=== PATIENT | male | born 1945 | race Caucasian/White ===

== ENCOUNTER 2017-05-25 16:56 | Inpatient (IN) | payer MEDICARE ==
[~2017-05-25] VITALS: Ht 185.4 cm; Wt 109.8 kg
[2017-05-25 17:56] LABS: BASO # 0.1 x10^3/uL (0.0-0.2); BASO % 1 % (0-3); EOS % 1 % (0-3); HEMATOCRIT 32.5 % (39.0-53.0); LYMPH # 0.7 x10^3/uL (1.0-4.8); LYMPH % 4 % (24-48); MEAN CORPUSCULAR HEMOGLOBIN 27 pg (25-35); MEAN CORPUSCULAR HGB CONC 31 g/dL (31-37); MEAN CORPUSCULAR VOLUME 87 fL (79-100); MONO % 5 % (0-9); NEUT % 91 % (31-73); PLATELET COUNT 233 x10^3/uL (140-400); RED BLOOD COUNT 3.73 x10^6/uL (4.30-5.70); RED CELL DISTRIBUTION WIDTH 19.1 % (11.5-14.5); WHITE BLOOD COUNT 20.8 x10^3/uL (4.0-11.0)
[2017-05-25 18:20] LABS: INR 3.7 (0.8-1.1); PROTHROMBIN TIME PATIENT 34.3 SEC (11.7-14.0)
--- NOTE | 2017-05-25 18:20 | RAD ---
Exam performed: CT scan of the head without contrast. Date of Service: 05/25/2017. Comparison: 05/23/2009. Clinical History: Weakness and fatigue. Technique: Helical acquisitions are obtained from the foramen magnum to the vertex without intravenous administration of contrast. Findings: There is prominence of cortical sulci and ventricular system compatible with age related atrophy. There are areas of low-attenuation in both periventricular deep white matter suggesting small vessel ischemic changes. Normal diego-white differentiation is maintained. There is no extra axial fluid collection, intraparenchymal hemorrhage or mass lesion. The visualized portions of the orbits, paranasal sinuses and the mastoid air cells appear clear. The calvarium is intact. Impression: 1. Age-appropriate atrophy without any acute intracranial process. PQRS Compliance Statement: One or more of the following individualized dose reduction techniques were utilized for this examination: 1. Automated exposure control 2. Adjustment of the mA and/or kV according to patient size 3. Use of iterative reconstruction technique Electronically signed by: Oriana Garrett MD (05/25/2017 6:17 PM) [facility]
[2017-05-25] MEDS ORDERED: IOHEXOL 300 MG/ML 75 ML VIAL IV ONE (18:45)
[2017-05-25] MEDS ORDERED: CONTRAST GIVEN MC PRN (19:00)
[2017-05-25 19:31] LABS: CALCIUM 8.4 mg/dL (8.5-10.1); CREATININE 2.2 mg/dL (0.7-1.3); GFR 29.7; POTASSIUM 3.3 mmol/L (3.5-5.1)
[2017-05-25 19:37] LABS: ALBUMIN 2.8 g/dL (3.4-5.0); ALBUMIN/GLOBULIN RATIO 0.8 (1.0-1.7); TOTAL BILIRUBIN 0.3 mg/dL (0.2-1.0); TOTAL PROTEIN 6.4 g/dL (6.4-8.2)
[2017-05-25 20:21] LABS: % EOS 2 % (0-5); ANISOCYTOSIS SLIGHT; HYPOCHROMIA SLIGHT; PLT ESTIMATE ADEQUATE (ADEQUATE)
[2017-05-25 20:33] LABS: BILIRUBIN,URINE NEGATIVE (NEG); GLUCOSE,URINE NEGATIVE (NEG); NITRITE,URINE NEGATIVE (NEG); PH,URINE 5.5; PROTEIN,URINE 100 mg/dL (NEG-TRACE); UROBILINOGEN,URINE 0.2 mg/dL (0.2 mg/dL)
[2017-05-25 20:46] LABS: BACTERIA,URINE FEW /HPF (0-FEW); SQUAMOUS EPITHELIAL CELL,UR FEW /LPF
[2017-05-25] MEDS ORDERED: ONDANSETRON PF 4 MG/2 ML VIAL. IV PRN (21:45)
[2017-05-25] MEDS ORDERED: ACETAMINOPHEN 325 MG TABLET. PO PRN (21:45)
[2017-05-25] MEDS: AZITHRMYCN 500MG IVPB FOR OMNI 250 ML IV ONE (22:00)
[2017-05-25 23:30] VITALS: BP 81/48
--- NOTE | 2017-05-25 23:45 | PHYS DOC ---
Past Medical History Past Medical History: A-Fib, Hypertension Past Surgical History: Other Additional Past Surgical Histo: CARDIAC ABLATION, R BKA, EXPLORATORY SX-AB Alcohol Use: Occasionally Drug Use: None Adult General Chief Complaint Chief Complaint: FATIGUE HPI HPI Patient is a 71 year old male who presents with dyspnea & weakness. The patient reports sudden onset of symptoms about 2 hours prior to presentation, had difficulty catching his breath and had difficulty standing up from seated position. He denies associated fevers or chills, cough, chest pain, unilateral numbness or weakness. He feels better now while he is resting in bed. He has previous history of abscess to left calf requiring surgical I&D with skin graft. He states he has been following closely at and has no new concerns regarding his lower extremity. He has history of hypertension and atrial fibrillation as well as a right BKA. He takes Coumadin. Review of Systems Review of Systems Constitutional: Denies fever or chills Eyes: Denies change in visual acuity HENT: Denies nasal congestion or sore throat Respiratory: Denies cough, reports shortness of breath Cardiovascular: Denies chest pain or edema GI: Denies abdominal pain, nausea, vomiting, bloody stools or diarrhea : Denies dysuria or hematuria Musculoskeletal: Denies back pain or joint pain, reports generalized weakness Integument: Denies rash or skin lesions Neurologic: Denies headache, focal weakness or sensory changes Current Medications Current Medications Current Medications Medications (Trade) Dose Ordered Sig/Tuan Start Time Stop Time Status Last Admin Dose Admin Info (Do NOT chart on this entry -- for MONITORING) 1 each PRN DAILY PRN 05/25/17 19:00 05/27/17 18:59 Iohexol (Omnipaque 300 Mg/ml) 75 ml 1X ONCE 05/25/17 18:45 05/25/17 18:48 DC Allergies Allergies Allergies Coded Allergies Type Severity Reaction Last Updated Verified Penicillins Allergy Intermediate 05/25/17 Yes codeine Allergy Intermediate 05/25/17 Yes Physical Exam Physical Exam Constitutional: Obese, no acute distress, non-toxic appearance. HENT: Normocephalic, atraumatic, bilateral external ears normal, oropharynx moist, nose normal. Eyes: PERRLA, EOMI, conjunctiva normal, no discharge. Neck: supple, no stridor. Cardiovascular: RRR, no murmurs, no edema. Lungs & Thorax: Diminished in bases, LCTAB, no wheezing, no respiratory distress. Abdomen: soft, nontender, nondistended. Skin: Warm, dry, no erythema, no rash. Back: No tenderness. Extremities: Right BKA left calf skin graft, small amount of serosanguineous drainage but no purulent drainage, no overlying erythema/warmth, no calf tenderness, distal pulses palpable Neurologic: Alert and oriented X 3, cranial nerves II through XII grossly intact , symmetric strength and sensation upper extremities, intact strength and sensation to left lower extremity, right BKA, no focal deficits noted. Psychologic: Affect normal, judgement normal, mood normal. Current Patient Data Vital Signs Vital Signs Date Time Temp Pulse Resp B/P (MAP) Pulse Ox O2 Delivery O2 Flow Rate FiO2 05/25/17 20:15 72 14 157/66 (96) 99 05/25/17 17:43 Room Air 05/25/17 17:06 97.6 97.6 Lab Values Laboratory Tests Test 05/25/17 17:35 05/25/17 18:45 05/25/17 20:28 White Blood Count 20.8 x10^3/uL (4.0-11.0) H Red Blood Count 3.73 x10^6/uL (4.30-5.70) L Hemoglobin 10.0 g/dL (13.0-17.5) L Hematocrit 32.5 % (39.0-53.0) L Mean Corpuscular Volume 87 fL (79-100) Mean Corpuscular Hemoglobin 27 pg (25-35) Mean Corpuscular Hemoglobin Concent 31 g/dL (31-37) Red Cell Distribution Width 19.1 % (11.5-14.5) H Platelet Count 233 x10^3/uL (140-400) Neutrophils (%) (Auto) 91 % (31-73) H Lymphocytes (%) (Auto) 4 % (24-48) L Monocytes (%) (Auto) 5 % (0-9) Eosinophils (%) (Auto) 1 % (0-3) Basophils (%) (Auto) 1 % (0-3) Neutrophils # (Auto) 18.8 x10^3uL (1.8-7.7) H Lymphocytes # (Auto) 0.7 x10^3/uL (1.0-4.8) L Monocytes # (Auto) 1.0 x10^3/uL (0.0-1.1) Eosinophils # (Auto) 0.2 x10^3/uL (0.0-0.7) Basophils # (Auto) 0.1 x10^3/uL (0.0-0.2) Segmented Neutrophils % 90 % (35-66) H Band Neutrophils % 1 % (0-9) Lymphocytes % 4 % (24-48) L Monocytes % 3 % (0-10) Eosinophils % 2 % (0-5) Platelet Estimate Adequate (ADEQUATE) Hypochromasia Slight Anisocytosis Slight Prothrombin Time 34.3 SEC (11.7-14.0) H Prothrombin Time INR 3.7 (0.8-1.1) H PTT 47 SEC (24-38) H D-Dimer (Jessie) 0.72 ug/mlFEU (0.00-0.50) H Sodium Level 141 mmol/L (136-145) Potassium Level 3.3 mmol/L (3.5-5.1) L Chloride Level 108 mmol/L (98-107) H Carbon Dioxide Level 21 mmol/L (21-32) Anion Gap 12 (6-14) Blood Urea Nitrogen 40 mg/dL (8-26) H Creatinine 2.2 mg/dL (0.7-1.3) H Estimated GFR (Cockcroft-Gault) 29.7 BUN/Creatinine Ratio 18 (6-20) Glucose Level 106 mg/dL (70-99) H Calcium Level 8.4 mg/dL (8.5-10.1) L Total Bilirubin 0.3 mg/dL (0.2-1.0) Aspartate Amino Transferase (AST) 13 U/L (15-37) L Alanine Aminotransferase (ALT) 27 U/L (16-63) Alkaline Phosphatase 93 U/L (46-116) Troponin I Quantitative 0.026 ng/mL (0.000-0.055) SK-Fdq-S-Type Natriuretic Peptide 900 pg/mL (0-124) H Total Protein 6.4 g/dL (6.4-8.2) Albumin 2.8 g/dL (3.4-5.0) L Albumin/Globulin Ratio 0.8 (1.0-1.7) L Urine Collection Type Unknown Urine Color Yellow Urine Clarity Clear Urine pH 5.5 Urine Specific [place] 1.025 Urine Protein 100 mg/dL (NEG-TRACE) Urine Glucose (UA) Negative mg/dL (NEG) Urine Ketones (Stick) Negative mg/dL (NEG) Urine Blood Negative (NEG) Urine Nitrite Negative (NEG) Urine Bilirubin Negative (NEG) Urine Urobilinogen Dipstick 0.2 mg/dL (0.2 mg/dL) Urine Leukocyte Esterase Negative (NEG) Urine RBC 3-5 /HPF (0-2) Urine WBC 1-4 /HPF (0-4) Urine Squamous Epithelial Cells Few /LPF Urine Bacteria Few /HPF (0-FEW) Urine Cellular Casts Occ /HPF Urine Hyaline Casts Many /HPF Urine Red Blood Cell Casts Occasional /HPF Urine Mucus Slight /LPF Laboratory Tests 05/25/17 17:35 Laboratory Tests 05/25/17 18:45 EKG EKG Interpreted by me: Normal sinus rhythm rate 59, no acute ST or T wave changes, normal intervals, no ectopy, significant artifact noted[] Radiology/Procedures Radiology/Procedures VQ pending at time of admission. PROCEDURE: CT HEAD WO CONTRAST Exam performed: CT scan of the head without contrast. Date of Service: 05/25/2017. Comparison: 05/23/2009. Clinical History: Weakness and fatigue. Technique: Helical acquisitions are obtained from the foramen magnum to the vertex without intravenous administration of contrast. Findings: There is prominence of cortical sulci and ventricular system compatible with age related atrophy. There are areas of low-attenuation in both periventricular deep white matter suggesting small vessel ischemic changes. Normal diego-white differentiation is maintained. There is no extra axial fluid collection, intraparenchymal hemorrhage or mass lesion. The visualized portions of the orbits, paranasal sinuses and the mastoid air cells appear clear. The calvarium is intact. Impression: 1. Age-appropriate atrophy without any acute intracranial process. PQRS Compliance Statement: One or more of the following individualized dose reduction techniques were utilized for this examination: 1. Automated exposure control 2. Adjustment of the mA and/or kV according to patient size 3. Use of iterative reconstruction technique Electronically signed by: Oriana Garrett MD (05/25/2017 6:17 PM) [facility] DICTATED and SIGNED BY: ORIANA GARRETT MD DATE: 05/25/17 5160 CXR, portable: interpreted by me: cardiomegaly, no infiltrate, no pneumothorax , mediastinal silhouette appears stable from previous, no acute process.[] Course & Med Decision Making Course & Med Decision Making Pertinent Labs and Imaging studies reviewed. (See chart for details) Patient presents with dyspnea and generalized weakness. Vitals stable, normal pulmonary exam, asymptomatic at time of my evaluation. Obtained CT of head and chest x-ray as well as labs and EKG. Noted to have leukocytosis without obvious infiltrate on chest x-ray. He had recent surgery with elevated d-dimer. Planned to order CT angiogram of the chest to evaluate for PE but GFR was too low to give IV contrast. Ordered VQ scan which is pending at time of admission. He was resting comfortably but I did recommend admission to the hospital for further evaluation and treatment including completion of VQ scan and pulmonary consultation. Patient agrees with plan of care. Discussed with Dr. Charles who agrees to admit to inpatient status. Will empirically treat for pneumonia even though no obvious abnormality on chest x-ray this time. Pulmonary consult to Dr. Mabry. Patient is admitted in stable condition. [] Dragon Disclaimer Dragon Disclaimer This electronic medical record was generated, in whole or in part, using a voice recognition dictation system. Departure Departure Impression: Primary Impression: Dyspnea Additional Impressions: Leukocytosis Anemia Acute renal failure Disposition: ADMITTED INPATIENT Admitting Physician: Jasvir Charles Condition: GUARDED Problem Qualifiers SANDHYA HENAO MD May 25, 2017 23:45
[2017-05-26] MEDS ORDERED: coumadin (00:28)
[2017-05-26] MEDS ORDERED: ALLO300T PO (00:28)
--- NOTE | 2017-05-26 01:18 | RAD ---
Nuclear medicine ventilation/perfusion scan: Reason for examination: Dyspnea. Elevated d-dimer. Rule out pulmonary embolus. Ventilation scan was performed using 13 mCi of xenon-133 gas. Perfusion scan was performed using 6 mCi of technetium 99m MAA. Standard images were obtained.. Ventilation scan shows homogeneous activity on single breath and equilibrium phase images and there appears be good washout. The activity however throughout the right lung field appears to be greater than the left lung field throughout the scan. The perfusion scan also shows increased activity throughout the right lung field compared to the left but no perfusion defects are identified and there is no evidence of ventilation/perfusion mismatch. IMPRESSION: No ventilation/perfusion mismatch. No evidence of pulmonary embolus. Electronically signed by: Samantha Herrera MD (05/26/2017 1:14 AM) [id number]
[2017-05-26] MEDS: AZITHRMYCN 500MG IVPB FOR OMNI 250 ML IV ONE (01:29)
[2017-05-26 03:05] VITALS: BP 87/42
[2017-05-26 06:07] LABS: BASO # 0.1 x10^3/uL (0.0-0.2); BASO % 0 % (0-3); EOS % 0 % (0-3); LYMPH # 0.8 x10^3/uL (1.0-4.8); LYMPH % 3 % (24-48); MEAN CORPUSCULAR HEMOGLOBIN 27 pg (25-35); MEAN CORPUSCULAR HGB CONC 32 g/dL (31-37); MEAN CORPUSCULAR VOLUME 85 fL (79-100); MONO % 4 % (0-9); NEUT % 93 % (31-73); PLATELET COUNT 207 x10^3/uL (140-400); RED CELL DISTRIBUTION WIDTH 18.8 % (11.5-14.5)
[2017-05-26 06:26] LABS: CALCIUM 7.7 mg/dL (8.5-10.1); CREATININE 1.8 mg/dL (0.7-1.3); GFR 37.5; POTASSIUM 3.5 mmol/L (3.5-5.1)
--- NOTE | 2017-05-26 06:55 | EKG ---
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
[2017-05-26 07:00] VITALS: BP 140/57
[2017-05-26] MEDS: IPRATRPIUM/ALBUTEROL 0.5/2.5MG 3 ML NEBU. NEB SCH ×4 (07:42→19:48)
--- NOTE | 2017-05-26 09:05 | RAD ---
CHEST AP ONLY Clinical Indication: Shortness of air Comparison: Chest radiograph dated 11/14/2012 Findings: Partial exclusion of the right costophrenic angle. Normal lung volume. No focal consolidation. Normal pulmonary vasculature. No pleural effusion or pneumothorax. Stable mild cardiomegaly. Stable atherosclerotic thoracic aorta. No acute osseous abnormality. IMPRESSION: 1. No focal consolidation. 2. Stable mild cardiomegaly.
[2017-05-26] MEDS: MORPHINE SULFATE 4 MG/ML DISP.SYRIN. IV PRN ×2 (09:48→13:18)
--- NOTE | 2017-05-26 10:58 | HP ---
ADMIT DATE: 05/25/2017 CHIEF COMPLAINT: Fatigue. HISTORY OF PRESENT ILLNESS: The patient is a pleasant 71-year-old male who presented with fatigue. He is short of breath. He is weak. It has been occurring for a couple of hours. He has had difficulty walking with his prosthetic leg as well. He does have a right BKA. He has also got some wounds on his left lower extremity that had been grafted. Apparently that occurred at a month or so ago. I have discussed the case with ER physician. We are going to admit the patient with leukocytosis, anemia, acute renal failure and weakness. PAST MEDICAL HISTORY: Right BKA, left lower extremity skin grafting (from the thigh to the lower calf), AFib, hypertension, obesity. ALLERGIES: PENICILLIN, CODEINE. FAMILY HISTORY: Diabetes. SOCIAL HISTORY: Does not drink, smoke or take drugs. MEDICATIONS: Reviewed. REVIEW OF SYSTEMS: REVIEW OF SYSTEMS: GENERAL: He complains of weakness and shortness of breath. SKIN: No bruising, hair changes or rashes. EYES: No blurred, double or loss of vision. NOSE AND THROAT: No history of nosebleeds, hoarseness or sore throat. HEART: No history of palpitations, chest pain or shortness of breath on exertion. LUNGS: Denies cough, hemoptysis, wheezing or shortness of breath. GASTROINTESTINAL: Denies changes in appetite, nausea, vomiting, diarrhea or constipation. GENITOURINARY: No history of frequency, urgency, hesitancy or nocturia. NEUROLOGIC: Denies history of numbness, tingling, tremor or weakness. PSYCHIATRIC: No history of panic, anxiety or depression. ENDOCRINE: No history of heat or cold intolerance, polyuria or polydipsia. EXTREMITIES: He complains of left leg pain and erythema. PHYSICAL EXAMINATION: VITAL SIGNS: Temperature afebrile, pulse 97, respirations 20, blood pressure 132/64. GENERAL: He is alert. HEART: Normal S1, S2. LUNGS: Clear. ABDOMEN: Soft and obese. EXTREMITIES: The right lower extremity has a below knee amputation. The left lower extremity has clean, dry and intact dressing to the thigh and the calf. ENDOCRINE: No thyromegaly. LYMPHATICS: No cervical nodes. HEMATOPOIETIC: No bruising. LABORATORY DATA: White count 20, hemoglobin 10, platelets 233. White count this morning has bumped all the way up to 33,000, hemoglobin is 9 now and platelets are 207. INR is 3.7, but he is on Coumadin. Urinalysis negative. ASSESSMENT AND PLAN: Severe leukocytosis, weakness, Coumadin toxicity, anemia, electrolyte disturbance with acute on chronic renal failure. The patient has been admitted. We will start on IV antibiotics. Consult ID, consult Nephrology, PT, OT. Continue home medicines. ALEJANDRO BUNN DO DR: FEDE/sergio JOB#: [id number] / [id number]
[2017-05-26 11:00] VITALS: BP_SYST 140; BP_SYST 142; BP_DIAS 57; BP_DIAS 59
[2017-05-26] MEDS ORDERED: POTASSIUM CHLORIDE 20 MEQ TABLET.ER. PO ONE (11:00)
--- NOTE | 2017-05-26 11:17 | PDOC2 ---
CONSULT Date of Consult Date of Consult DATE: 05/26/17 TIME: 11:10 Reason for Consult Reason for Consult: RENAL FAILURE Referring Physician Referring Physician: SIMI Identification/Chief Complaint Chief Complaint SOB AND WEAK Problems: Source Source: Chart review, Patient History of Present Illness Reason for Visit: THIS IS A 71 YR OLD WHO FELT SOB AND WEAK. WAS AT REHAB AND WENT HOME ON A DAY PASS WHEN HE FELT ILL AND CALLED 911. SAID HE FELT DIAPHORETIC. BP WAS A BIT LOW INITIALLY HERE. LABS SHOWED A HIGH PERIPHERAL WBC AND A CR OF 2.2 AND HE WAS ADMITTED. HX NOTABLE FOR LEFT CALF ABSCESS WHICH NEEDED I&D AND THEN SKIN GRAFTING ABOUT A MONTH AGO AT [facility]. HE SEES DR OLIVAREZ AT THE [facility] FOR CKD FROM DM II AND HTN. HE IS ALSO ANEMIC WITH A HGB OF 9.0. ALSO NOTED TO HAVE A LOW K Past Medical History Cardiovascular: AFIB, HTN GI: Constipation Heme/Onc: Anemia NOS Renal/: Chronic renal insuff Endocrine: Diabetes Past Surgical History Past Surgical History RIGHT BKA, LEFT CALF INFECTION WITH I&D AND SKIN GRAFTING Past Surgical History: Total knee replacement Family History Family History: Diabetes, Hypertension Social History No Drugs: None Lives: with Family Current Problem List Problem List Problems Medical Problems: (1) Acute renal failure Status: Acute (2) Anemia Status: Acute (3) Dyspnea Status: Acute (4) Leukocytosis Status: Acute Current Medications Current Medications Current Medications Iohexol (Omnipaque 300 Mg/ml) 75 ml 1X ONCE IV ; Start 05/25/17 at 18:45; Stop 05/25/17 at 18:48; Status DC Info (Do NOT chart on this entry -- for MONITORING) 1 each PRN DAILY PRN MC SEE COMMENTS; Start 05/25/17 at 19:00; Stop 05/27/17 at 18:59 Ondansetron HCl (Zofran) 4 mg PRN Q8HRS PRN IV NAUSEA/VOMITING; Start 05/25/17 at 21:45; Stop 05/26/17 at 21:44 Morphine Sulfate 2 mg PRN Q2HR PRN IV SEVERE PAIN Last administered on t 09:48; Start 05/25/17 at 21:45; Stop 05/26/17 at 21:44 Acetaminophen (Tylenol) 650 mg PRN Q4HRS PRN PO FEVER; Start 05/25/17 at 21:45 ; Stop 05/26/17 at 21:44 Albuterol/ Ipratropium (Duoneb) 3 ml RTQID NEB Last administered on 05/26/17 07:42; Start 05/26/17 at 08:00; Stop 05/27/17 at 07:59 Ceftriaxone Sodium 50 ml @ 100 mls/hr 1X ONCE IV Last administered on 23:07; Start 05/25/17 at 22:00; Stop 05/25/17 at 22:29; Status DC Azithromycin 250 ml @ 250 mls/hr 1X ONCE IV Last administered on 05/26/17 01 :29; Start 05/25/17 at 22:00; Stop 05/25/17 at 22:59; Status DC Allopurinol (Zyloprim) 300 mg DAILY PO ; Start 05/26/17 at 11:00 Warfarin Sodium (Coumadin Per Pharmacy) 1 each PRN DAILY PRN MC SEE COMMENTS; Start 05/26/17 at 10:45 Potassium Chloride (Klor-Con) 40 meq 1X ONCE PO ; Start 05/26/17 at 11:00; Stop 05/26/17 at 11:01; Status DC Active Scripts Active Reported [coumadin] Allopurinol 300 Mg Tablet 1 Tab PO DAILY Allergies Allergies: Coded Allergies: Penicillins (Verified Allergy, Intermediate, 05/25/17) codeine (Verified Allergy, Intermediate, 05/25/17) ROS General: YES: Chills, Fatigue, Appetite PSYCHOLOGICAL ROS: YES: Anxiety Eyes: Yes Decreased vision HEENT: YES: Heacaches Respiratory: YES: Cough, Shortness of breath Cardiovascular: yes Edema, yes Lt Headedness Gastrointestinal: Yes Constipation Genitourinary: YES Other (NOCTURIA) Musculoskeletal: Yes Muscular Weakness Neurological: Yes Weakness Skin: Yes Dry Skin, Yes Skin Lesion Changes Physical Exam General: Alert, Oriented X3, Cooperative, No acute distress HEENT: Atraumatic, PERRLA, EOMI, Mucous membr. moist/pink Lungs: Clear to auscultation Heart: Regular rate, Normal S1, Normal S2 Abdomen: Normal bowel sounds, Soft, No tenderness Extremities: No clubbing, No edema, Normal pulses Skin: Other (LEFT THIGH AND LEFT LE ARE WRAPPED. NO DRAINAGE NOTED) MUSCULOSKELETAL: No deformity, No swelling, Other (RIGHT BKA) Vitals VITALS Vital Signs Date Time Temp Pulse Resp B/P (MAP) Pulse Ox O2 Delivery O2 Flow Rate FiO2 05/26/17 10:20 97 Room Air 05/26/17 07:00 98.1 60 18 140/57 (84) 98.1 Labs Labs Laboratory Tests Test 05/25/17 17:35 05/25/17 18:45 05/25/17 20:28 05/26/17 01:43 White Blood Count 20.8 x10^3/uL (4.0-11.0) Red Blood Count 3.73 x10^6/uL (4.30-5.70) Hemoglobin 10.0 g/dL (13.0-17.5) Hematocrit 32.5 % (39.0-53.0) Mean Corpuscular Volume 87 fL (79-100) Mean Corpuscular Hemoglobin 27 pg (25-35) Mean Corpuscular Hemoglobin Concent 31 g/dL (31-37) Red Cell Distribution Width 19.1 % (11.5-14.5) Platelet Count 233 x10^3/uL (140-400) Neutrophils (%) (Auto) 91 % (31-73) Lymphocytes (%) (Auto) 4 % (24-48) Monocytes (%) (Auto) 5 % (0-9) Eosinophils (%) (Auto) 1 % (0-3) Basophils (%) (Auto) 1 % (0-3) Neutrophils # (Auto) 18.8 x10^3uL (1.8-7.7) Lymphocytes # (Auto) 0.7 x10^3/uL (1.0-4.8) Monocytes # (Auto) 1.0 x10^3/uL (0.0-1.1) Eosinophils # (Auto) 0.2 x10^3/uL (0.0-0.7) Basophils # (Auto) 0.1 x10^3/uL (0.0-0.2) Segmented Neutrophils % 90 % (35-66) Band Neutrophils % 1 % (0-9) Lymphocytes % 4 % (24-48) Monocytes % 3 % (0-10) Eosinophils % 2 % (0-5) Platelet Estimate Adequate (ADEQUATE) Hypochromasia Slight Anisocytosis Slight Prothrombin Time 34.3 SEC (11.7-14.0) Prothromb Time International Ratio 3.7 (0.8-1.1) Activated Partial Thromboplast Time 47 SEC (24-38) D-Dimer (Jessie) 0.72 ug/mlFEU (0.00-0.50) Sodium Level 141 mmol/L (136-145) Potassium Level 3.3 mmol/L (3.5-5.1) Chloride Level 108 mmol/L (98-107) Carbon Dioxide Level 21 mmol/L (21-32) Anion Gap 12 (6-14) Blood Urea Nitrogen 40 mg/dL (8-26) Creatinine 2.2 mg/dL (0.7-1.3) Estimated GFR (Cockcroft-Gault) 29.7 BUN/Creatinine Ratio 18 (6-20) Glucose Level 106 mg/dL (70-99) Calcium Level 8.4 mg/dL (8.5-10.1) Total Bilirubin 0.3 mg/dL (0.2-1.0) Aspartate Amino Transf (AST/SGOT) 13 U/L (15-37) Alanine Aminotransferase (ALT/SGPT) 27 U/L (16-63) Alkaline Phosphatase 93 U/L (46-116) Troponin I Quantitative 0.026 ng/mL (0.000-0.055) GY-Blg-T-Type Natriuretic Peptide 900 pg/mL (0-124) Total Protein 6.4 g/dL (6.4-8.2) Albumin 2.8 g/dL (3.4-5.0) Albumin/Globulin Ratio 0.8 (1.0-1.7) Urine Collection Type Unknown Urine Color Yellow Urine Clarity Clear Urine pH 5.5 Urine Specific [place] 1.025 Urine Protein 100 mg/dL (NEG-TRACE) Urine Glucose (UA) Negative mg/dL (NEG) Urine Ketones (Stick) Negative mg/dL (NEG) Urine Blood Negative (NEG) Urine Nitrite Negative (NEG) Urine Bilirubin Negative (NEG) Urine Urobilinogen Dipstick 0.2 mg/dL (0.2 mg/dL) Urine Leukocyte Esterase Negative (NEG) Urine RBC 3-5 /HPF (0-2) Urine WBC 1-4 /HPF (0-4) Urine Squamous Epithelial Cells Few /LPF Urine Bacteria Few /HPF (0-FEW) Urine Cellular Casts Occ /HPF Urine Hyaline Casts Many /HPF Urine Red Blood Cell Casts Occasional /HPF Urine Mucus Slight /LPF Glucose (Fingerstick) 126 mg/dL (70-99) Test 05/26/17 05:20 05/26/17 07:37 White Blood Count 33.0 x10^3/uL (4.0-11.0) Red Blood Count 3.30 x10^6/uL (4.30-5.70) Hemoglobin 9.0 g/dL (13.0-17.5) Hematocrit 28.0 % (39.0-53.0) Mean Corpuscular Volume 85 fL (79-100) Mean Corpuscular Hemoglobin 27 pg (25-35) Mean Corpuscular Hemoglobin Concent 32 g/dL (31-37) Red Cell Distribution Width 18.8 % (11.5-14.5) Platelet Count 207 x10^3/uL (140-400) Neutrophils (%) (Auto) 93 % (31-73) Lymphocytes (%) (Auto) 3 % (24-48) Monocytes (%) (Auto) 4 % (0-9) Eosinophils (%) (Auto) 0 % (0-3) Basophils (%) (Auto) 0 % (0-3) Neutrophils # (Auto) 30.8 x10^3uL (1.8-7.7) Lymphocytes # (Auto) 0.8 x10^3/uL (1.0-4.8) Monocytes # (Auto) 1.2 x10^3/uL (0.0-1.1) Eosinophils # (Auto) 0.1 x10^3/uL (0.0-0.7) Basophils # (Auto) 0.1 x10^3/uL (0.0-0.2) Sodium Level 140 mmol/L (136-145) Potassium Level 3.5 mmol/L (3.5-5.1) Chloride Level 108 mmol/L (98-107) Carbon Dioxide Level 19 mmol/L (21-32) Anion Gap 13 (6-14) Blood Urea Nitrogen 39 mg/dL (8-26) Creatinine 1.8 mg/dL (0.7-1.3) Estimated GFR (Cockcroft-Gault) 37.5 Glucose Level 118 mg/dL (70-99) Calcium Level 7.7 mg/dL (8.5-10.1) Glucose (Fingerstick) 131 mg/dL (70-99) Laboratory Tests Test 05/25/17 17:35 05/25/17 18:45 05/25/17 20:28 05/26/17 01:43 White Blood Count 20.8 x10^3/uL (4.0-11.0) Red Blood Count 3.73 x10^6/uL (4.30-5.70) Hemoglobin 10.0 g/dL (13.0-17.5) Hematocrit 32.5 % (39.0-53.0) Mean Corpuscular Volume 87 fL (79-100) Mean Corpuscular Hemoglobin 27 pg (25-35) Mean Corpuscular Hemoglobin Concent 31 g/dL (31-37) Red Cell Distribution Width 19.1 % (11.5-14.5) Platelet Count 233 x10^3/uL (140-400) Neutrophils (%) (Auto) 91 % (31-73) Lymphocytes (%) (Auto) 4 % (24-48) Monocytes (%) (Auto) 5 % (0-9) Eosinophils (%) (Auto) 1 % (0-3) Basophils (%) (Auto) 1 % (0-3) Neutrophils # (Auto) 18.8 x10^3uL (1.8-7.7) Lymphocytes # (Auto) 0.7 x10^3/uL (1.0-4.8) Monocytes # (Auto) 1.0 x10^3/uL (0.0-1.1) Eosinophils # (Auto) 0.2 x10^3/uL (0.0-0.7) Basophils # (Auto) 0.1 x10^3/uL (0.0-0.2) Segmented Neutrophils % 90 % (35-66) Band Neutrophils % 1 % (0-9) Lymphocytes % 4 % (24-48) Monocytes % 3 % (0-10) Eosinophils % 2 % (0-5) Platelet Estimate Adequate (ADEQUATE) Hypochromasia Slight Anisocytosis Slight Prothrombin Time 34.3 SEC (11.7-14.0) Prothromb Time International Ratio 3.7 (0.8-1.1) Activated Partial Thromboplast Time 47 SEC (24-38) D-Dimer (Jessie) 0.72 ug/mlFEU (0.00-0.50) Sodium Level 141 mmol/L (136-145) Potassium Level 3.3 mmol/L (3.5-5.1) Chloride Level 108 mmol/L (98-107) Carbon Dioxide Level 21 mmol/L (21-32) Anion Gap 12 (6-14) Blood Urea Nitrogen 40 mg/dL (8-26) Creatinine 2.2 mg/dL (0.7-1.3) Estimated GFR (Cockcroft-Gault) 29.7 BUN/Creatinine Ratio 18 (6-20) Glucose Level 106 mg/dL (70-99) Calcium Level 8.4 mg/dL (8.5-10.1) Total Bilirubin 0.3 mg/dL (0.2-1.0) Aspartate Amino Transf (AST/SGOT) 13 U/L (15-37) Alanine Aminotransferase (ALT/SGPT) 27 U/L (16-63) Alkaline Phosphatase 93 U/L (46-116) Troponin I Quantitative 0.026 ng/mL (0.000-0.055) AP-Rhc-T-Type Natriuretic Peptide 900 pg/mL (0-124) Total Protein 6.4 g/dL (6.4-8.2) Albumin 2.8 g/dL (3.4-5.0) Albumin/Globulin Ratio 0.8 (1.0-1.7) Urine Collection Type Unknown Urine Color Yellow Urine Clarity Clear Urine pH 5.5 Urine Specific [place] 1.025 Urine Protein 100 mg/dL (NEG-TRACE) Urine Glucose (UA) Negative mg/dL (NEG) Urine Ketones (Stick) Negative mg/dL (NEG) Urine Blood Negative (NEG) Urine Nitrite Negative (NEG) Urine Bilirubin Negative (NEG) Urine Urobilinogen Dipstick 0.2 mg/dL (0.2 mg/dL) Urine Leukocyte Esterase Negative (NEG) Urine RBC 3-5 /HPF (0-2) Urine WBC 1-4 /HPF (0-4) Urine Squamous Epithelial Cells Few /LPF Urine Bacteria Few /HPF (0-FEW) Urine Cellular Casts Occ /HPF Urine Hyaline Casts Many /HPF Urine Red Blood Cell Casts Occasional /HPF Urine Mucus Slight /LPF Glucose (Fingerstick) 126 mg/dL (70-99) Test 10/3/17 05:20 05/26/17 07:37 White Blood Count 33.0 x10^3/uL (4.0-11.0) Red Blood Count 3.30 x10^6/uL (4.30-5.70) Hemoglobin 9.0 g/dL (13.0-17.5) Hematocrit 28.0 % (39.0-53.0) Mean Corpuscular Volume 85 fL (79-100) Mean Corpuscular Hemoglobin 27 pg (25-35) Mean Corpuscular Hemoglobin Concent 32 g/dL (31-37) Red Cell Distribution Width 18.8 % (11.5-14.5) Platelet Count 207 x10^3/uL (140-400) Neutrophils (%) (Auto) 93 % (31-73) Lymphocytes (%) (Auto) 3 % (24-48) Monocytes (%) (Auto) 4 % (0-9) Eosinophils (%) (Auto) 0 % (0-3) Basophils (%) (Auto) 0 % (0-3) Neutrophils # (Auto) 30.8 x10^3uL (1.8-7.7) Lymphocytes # (Auto) 0.8 x10^3/uL (1.0-4.8) Monocytes # (Auto) 1.2 x10^3/uL (0.0-1.1) Eosinophils # (Auto) 0.1 x10^3/uL (0.0-0.7) Basophils # (Auto) 0.1 x10^3/uL (0.0-0.2) Sodium Level 140 mmol/L (136-145) Potassium Level 3.5 mmol/L (3.5-5.1) Chloride Level 108 mmol/L (98-107) Carbon Dioxide Level 19 mmol/L (21-32) Anion Gap 13 (6-14) Blood Urea Nitrogen 39 mg/dL (8-26) Creatinine 1.8 mg/dL (0.7-1.3) Estimated GFR (Cockcroft-Gault) 37.5 Glucose Level 118 mg/dL (70-99) Calcium Level 7.7 mg/dL (8.5-10.1) Glucose (Fingerstick) 131 mg/dL (70-99) Assessment/Plan Assessment/Plan IMP CKD STAGE 3 TO 4 WITH CRCL OF ABOUT 30 DM II HTN ANEMIA LEUCOCYTOSIS PROB L LE INFECTION MILD HYPOTENSION HX OF AFIB HX GOUT-ON ALLOPURINOL PLAN WILL ASK ID TO SEE PROB NEEDS ANTIBIOTICS IVF'S - ISOTONIC SALINE REPLACE K ARLEN LIMON MD May 26, 2017 11:17
[2017-05-26] MEDS: ALLOPURINOL 300 MG TABLET. PO SCH (12:08)
[2017-05-26] MEDS ORDERED: LISI10TA2 PO (12:43)
--- NOTE | 2017-05-26 13:04 | PDOC ---
Infectious Disease Note ROS ROS Vital Sign Vital Signs Vital Signs Date Time Temp Pulse Resp B/P (MAP) Pulse Ox O2 Delivery O2 Flow Rate FiO2 05/26/17 11:14 97 Room Air 05/26/17 11:00 98.6 69 20 142/59 (86) 98.6 Labs Lab Laboratory Tests Test 05/25/17 17:35 05/25/17 18:45 05/25/17 20:28 05/26/17 01:43 White Blood Count 20.8 x10^3/uL (4.0-11.0) Red Blood Count 3.73 x10^6/uL (4.30-5.70) Hemoglobin 10.0 g/dL (13.0-17.5) Hematocrit 32.5 % (39.0-53.0) Mean Corpuscular Volume 87 fL (79-100) Mean Corpuscular Hemoglobin 27 pg (25-35) Mean Corpuscular Hemoglobin Concent 31 g/dL (31-37) Red Cell Distribution Width 19.1 % (11.5-14.5) Platelet Count 233 x10^3/uL (140-400) Neutrophils (%) (Auto) 91 % (31-73) Lymphocytes (%) (Auto) 4 % (24-48) Monocytes (%) (Auto) 5 % (0-9) Eosinophils (%) (Auto) 1 % (0-3) Basophils (%) (Auto) 1 % (0-3) Neutrophils # (Auto) 18.8 x10^3uL (1.8-7.7) Lymphocytes # (Auto) 0.7 x10^3/uL (1.0-4.8) Monocytes # (Auto) 1.0 x10^3/uL (0.0-1.1) Eosinophils # (Auto) 0.2 x10^3/uL (0.0-0.7) Basophils # (Auto) 0.1 x10^3/uL (0.0-0.2) Segmented Neutrophils % 90 % (35-66) Band Neutrophils % 1 % (0-9) Lymphocytes % 4 % (24-48) Monocytes % 3 % (0-10) Eosinophils % 2 % (0-5) Platelet Estimate Adequate (ADEQUATE) Hypochromasia Slight Anisocytosis Slight Prothrombin Time 34.3 SEC (11.7-14.0) Prothromb Time International Ratio 3.7 (0.8-1.1) Activated Partial Thromboplast Time 47 SEC (24-38) D-Dimer (Jessie) 0.72 ug/mlFEU (0.00-0.50) Sodium Level 141 mmol/L (136-145) Potassium Level 3.3 mmol/L (3.5-5.1) Chloride Level 108 mmol/L (98-107) Carbon Dioxide Level 21 mmol/L (21-32) Anion Gap 12 (6-14) Blood Urea Nitrogen 40 mg/dL (8-26) Creatinine 2.2 mg/dL (0.7-1.3) Estimated GFR (Cockcroft-Gault) 29.7 BUN/Creatinine Ratio 18 (6-20) Glucose Level 106 mg/dL (70-99) Calcium Level 8.4 mg/dL (8.5-10.1) Total Bilirubin 0.3 mg/dL (0.2-1.0) Aspartate Amino Transf (AST/SGOT) 13 U/L (15-37) Alanine Aminotransferase (ALT/SGPT) 27 U/L (16-63) Alkaline Phosphatase 93 U/L (46-116) Troponin I Quantitative 0.026 ng/mL (0.000-0.055) IY-Zos-T-Type Natriuretic Peptide 900 pg/mL (0-124) Total Protein 6.4 g/dL (6.4-8.2) Albumin 2.8 g/dL (3.4-5.0) Albumin/Globulin Ratio 0.8 (1.0-1.7) Urine Collection Type Unknown Urine Color Yellow Urine Clarity Clear Urine pH 5.5 Urine Specific [place] 1.025 Urine Protein 100 mg/dL (NEG-TRACE) Urine Glucose (UA) Negative mg/dL (NEG) Urine Ketones (Stick) Negative mg/dL (NEG) Urine Blood Negative (NEG) Urine Nitrite Negative (NEG) Urine Bilirubin Negative (NEG) Urine Urobilinogen Dipstick 0.2 mg/dL (0.2 mg/dL) Urine Leukocyte Esterase Negative (NEG) Urine RBC 3-5 /HPF (0-2) Urine WBC 1-4 /HPF (0-4) Urine Squamous Epithelial Cells Few /LPF Urine Bacteria Few /HPF (0-FEW) Urine Cellular Casts Occ /HPF Urine Hyaline Casts Many /HPF Urine Red Blood Cell Casts Occasional /HPF Urine Mucus Slight /LPF Glucose (Fingerstick) 126 mg/dL (70-99) Test 05/26/17 05:20 05/26/17 07:37 05/26/17 11:39 White Blood Count 33.0 x10^3/uL (4.0-11.0) Red Blood Count 3.30 x10^6/uL (4.30-5.70) Hemoglobin 9.0 g/dL (13.0-17.5) Hematocrit 28.0 % (39.0-53.0) Mean Corpuscular Volume 85 fL (79-100) Mean Corpuscular Hemoglobin 27 pg (25-35) Mean Corpuscular Hemoglobin Concent 32 g/dL (31-37) Red Cell Distribution Width 18.8 % (11.5-14.5) Platelet Count 207 x10^3/uL (140-400) Neutrophils (%) (Auto) 93 % (31-73) Lymphocytes (%) (Auto) 3 % (24-48) Monocytes (%) (Auto) 4 % (0-9) Eosinophils (%) (Auto) 0 % (0-3) Basophils (%) (Auto) 0 % (0-3) Neutrophils # (Auto) 30.8 x10^3uL (1.8-7.7) Lymphocytes # (Auto) 0.8 x10^3/uL (1.0-4.8) Monocytes # (Auto) 1.2 x10^3/uL (0.0-1.1) Eosinophils # (Auto) 0.1 x10^3/uL (0.0-0.7) Basophils # (Auto) 0.1 x10^3/uL (0.0-0.2) Sodium Level 140 mmol/L (136-145) Potassium Level 3.5 mmol/L (3.5-5.1) Chloride Level 108 mmol/L (98-107) Carbon Dioxide Level 19 mmol/L (21-32) Anion Gap 13 (6-14) Blood Urea Nitrogen 39 mg/dL (8-26) Creatinine 1.8 mg/dL (0.7-1.3) Estimated GFR (Cockcroft-Gault) 37.5 Glucose Level 118 mg/dL (70-99) Calcium Level 7.7 mg/dL (8.5-10.1) Glucose (Fingerstick) 131 mg/dL (70-99) 166 mg/dL (70-99) Objective Assessment Leukocytosis ? reactive ? viral. LLE wound PCN allergy - has tolerated Amox Hypotension CKD Plan Plan of Care Check procalcitonin/Blood cults/troponin Zyvox (avoid Vanc with DANIEL) and Zosyn Cont local wound care F/u labs Thank you # [id number] EVANGELINA KLEIN MD May 26, 2017 13:04
--- NOTE | 2017-05-26 13:54 | CONS ---
DATE OF CONSULTATION: 05/26/2017 LOCATION: Room 668. REQUESTING PHYSICIAN: Dr. Wilburn. REASON FOR CONSULTATION: Leukocytosis. HISTORY OF PRESENT ILLNESS: The patient is a 71-year-old gentleman with a history of right BKA. He states that about a month or so ago he was getting into his car and bumped his left leg on the car. He subsequently developed a hematoma, resulted in admission to and was told he had gangrene. He underwent three surgeries to debride the area and then ended up getting a skin graft. He does not recall any specific bacteria that were involved and he has not been on any antibiotics since being in the . He has been in a penitentiary facility, but yesterday went home on leave. While at home, he developed acute weakness as well as diaphoresis and some nausea. He also had some chills, but no gross fevers, no headaches, no cough, no diarrhea or cramps and no dysuria. He denies any other falls. He presented to [facility]. Here, he has been afebrile; however, his blood pressure did get down to 81/48 after getting as high as 205/85. He was placed on Rocephin, azithromycin and admitted to the hospital. Currently, he is sitting in bed, states he is feeling some better. PAST MEDICAL HISTORY: Positive for chronic kidney disease, history of atrial fibrillation, hypertension, constipation, morbid obesity, diabetes. PAST SURGICAL HISTORY: Positive for the left leg hematoma I and D, right below-knee amputation as well as a total knee replacement. REVIEW OF SYSTEMS: Otherwise negative except for mentioned above. ALLERGIES: LISTED PENICILLIN, BUT HE HAS TOLERATED AMOXICILLIN WITHOUT COMPLICATIONS. SOCIAL HISTORY: No tobacco or alcohol. FAMILY HISTORY: Positive for diabetes and hypertension. CURRENT MEDICATIONS: Include Rocephin x 1, azithromycin x 1. He is on allopurinol, albuterol, Atrovent. Other meds are available including Coumadin and have been reviewed in the chart. PHYSICAL EXAMINATION: VITAL SIGNS: He is afebrile, temperature 98.6, pulse 69, respirations 20, blood pressure 142/59, satting 97% on room air. CONSTITUTIONAL: He is obese, cooperative, in no acute distress. He remains in bed. HEENT: Pupils are equal and reactive. Normal conjunctivae. Oral cavity, pharynx is clear. NECK: Supple, no JVD. LUNGS: Clear to auscultation. HEART: S1, S2. ABDOMEN: Obese, soft, nontender, nondistended, positive bowel sounds. EXTREMITIES: He has a right below-knee amputation. Left calf wound on the lateral aspect down at the lower third has some mild drainage, but there is no odor. There is minimal erythema. There is no gross tenderness. His harvest site is without signs of any complications. SKIN: Warm to touch without signs of rash. NEUROLOGIC: Nonfocal, appropriate. PSYCHIATRIC: Affect is pleasant. LABORATORY DATA: White count was 20.8 on admission, currently is 33, hemoglobin 9, platelets of 207, neutrophils are 93. Creatinine was 2.2 on admission, currently 1.8, glucose 118. Normal liver function study tests. Urinalysis is clean. BNP was 900. Pulmonary perfusion imaging was low probability. CT scan of the head, age appropriate atrophy. Chest x-ray, no focal consolidation. IMPRESSION: 1. Leukocytosis, questionable reactive, questionable viral. He states he received an influenza vaccine, but it was more in the middle of the week last week and therefore, he thought he should not be having complications from this. 2. Left lower extremity wound. 3. Penicillin allergy, but he has tolerated amoxicillin. 4. Hypotension. 5. Chronic kidney disease. RECOMMENDATIONS: At this time, we will add vancomycin and Zosyn, and obtain blood cultures as well as a procalcitonin level. We will follow up on labs and continue his local wound care. We will repeat a troponin. Thank you for allowing me to participate in the patient's care. Should you have further any concerns or questions, please do not hesitate to contact me. EVANGELINA KLEIN MD DR: JONATHAN/sergio JOB#: [id number] / [id number]
[2017-05-26] MEDS: PIPERACILLIN/TAZOBACTAM 3.375 GM in IV NORMAL SALINE 50ML 50 ML IV SCH ×2 (14:08→19:00)
[2017-05-26 15:00] VITALS: BP 106/44
--- NOTE | 2017-05-26 16:30 | PDOC ---
Provider Note Provider Note Hem-Once consult: 1. Leukocytosis, reactive, I do not suspect a primary bone marrow disorder ID consulted See dictation [id number]. OLAYINKA STAFFORD MD May 26, 2017 16:30
[2017-05-26 19:05] VITALS: BP 119/56
--- NOTE | 2017-05-26 19:23 | PDOC ---
PULMONARY PROGRESS NOTES Vitals Vital Signs Date Time Temp Pulse Resp B/P (MAP) Pulse Ox O2 Delivery O2 Flow Rate FiO2 05/26/17 15:27 97 Room Air 05/26/17 15:00 98.6 77 18 106/44 (64) 98.6 Labs Laboratory Tests Test 05/25/17 17:35 05/25/17 18:45 05/25/17 20:28 05/26/17 01:43 White Blood Count 20.8 x10^3/uL (4.0-11.0) Red Blood Count 3.73 x10^6/uL (4.30-5.70) Hemoglobin 10.0 g/dL (13.0-17.5) Hematocrit 32.5 % (39.0-53.0) Mean Corpuscular Volume 87 fL (79-100) Mean Corpuscular Hemoglobin 27 pg (25-35) Mean Corpuscular Hemoglobin Concent 31 g/dL (31-37) Red Cell Distribution Width 19.1 % (11.5-14.5) Platelet Count 233 x10^3/uL (140-400) Neutrophils (%) (Auto) 91 % (31-73) Lymphocytes (%) (Auto) 4 % (24-48) Monocytes (%) (Auto) 5 % (0-9) Eosinophils (%) (Auto) 1 % (0-3) Basophils (%) (Auto) 1 % (0-3) Neutrophils # (Auto) 18.8 x10^3uL (1.8-7.7) Lymphocytes # (Auto) 0.7 x10^3/uL (1.0-4.8) Monocytes # (Auto) 1.0 x10^3/uL (0.0-1.1) Eosinophils # (Auto) 0.2 x10^3/uL (0.0-0.7) Basophils # (Auto) 0.1 x10^3/uL (0.0-0.2) Segmented Neutrophils % 90 % (35-66) Band Neutrophils % 1 % (0-9) Lymphocytes % 4 % (24-48) Monocytes % 3 % (0-10) Eosinophils % 2 % (0-5) Platelet Estimate Adequate (ADEQUATE) Hypochromasia Slight Anisocytosis Slight Prothrombin Time 34.3 SEC (11.7-14.0) Prothromb Time International Ratio 3.7 (0.8-1.1) Activated Partial Thromboplast Time 47 SEC (24-38) D-Dimer (Jessie) 0.72 ug/mlFEU (0.00-0.50) Sodium Level 141 mmol/L (136-145) Potassium Level 3.3 mmol/L (3.5-5.1) Chloride Level 108 mmol/L (98-107) Carbon Dioxide Level 21 mmol/L (21-32) Anion Gap 12 (6-14) Blood Urea Nitrogen 40 mg/dL (8-26) Creatinine 2.2 mg/dL (0.7-1.3) Estimated GFR (Cockcroft-Gault) 29.7 BUN/Creatinine Ratio 18 (6-20) Glucose Level 106 mg/dL (70-99) Calcium Level 8.4 mg/dL (8.5-10.1) Total Bilirubin 0.3 mg/dL (0.2-1.0) Aspartate Amino Transf (AST/SGOT) 13 U/L (15-37) Alanine Aminotransferase (ALT/SGPT) 27 U/L (16-63) Alkaline Phosphatase 93 U/L (46-116) Troponin I Quantitative 0.026 ng/mL (0.000-0.055) SO-Yil-A-Type Natriuretic Peptide 900 pg/mL (0-124) Total Protein 6.4 g/dL (6.4-8.2) Albumin 2.8 g/dL (3.4-5.0) Albumin/Globulin Ratio 0.8 (1.0-1.7) Urine Collection Type Unknown Urine Color Yellow Urine Clarity Clear Urine pH 5.5 Urine Specific Drayden 1.025 Urine Protein 100 mg/dL (NEG-TRACE) Urine Glucose (UA) Negative mg/dL (NEG) Urine Ketones (Stick) Negative mg/dL (NEG) Urine Blood Negative (NEG) Urine Nitrite Negative (NEG) Urine Bilirubin Negative (NEG) Urine Urobilinogen Dipstick 0.2 mg/dL (0.2 mg/dL) Urine Leukocyte Esterase Negative (NEG) Urine RBC 3-5 /HPF (0-2) Urine WBC 1-4 /HPF (0-4) Urine Squamous Epithelial Cells Few /LPF Urine Bacteria Few /HPF (0-FEW) Urine Cellular Casts Occ /HPF Urine Hyaline Casts Many /HPF Urine Red Blood Cell Casts Occasional /HPF Urine Mucus Slight /LPF Glucose (Fingerstick) 126 mg/dL (70-99) Test 05/26/17 02:32 05/26/17 05:20 05/26/17 07:37 05/26/17 11:39 Nasal Screen MRSA (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8 x10^3/uL (1.0-4.8) Monocytes # (Auto) 1.2 x10^3/uL (0.0-1.1) Eosinophils # (Auto) 0.1 x10^3/uL (0.0-0.7) Basophils # (Auto) 0.1 x10^3/uL (0.0-0.2) Sodium Level 140 mmol/L (136-145) Potassium Level 3.5 mmol/L (3.5-5.1) Chloride Level 108 mmol/L (98-107) Carbon Dioxide Level 19 mmol/L (21-32) Anion Gap 13 (6-14) Blood Urea Nitrogen 39 mg/dL (8-26) Creatinine 1.8 mg/dL (0.7-1.3) Estimated GFR (Cockcroft-Gault) 37.5 Glucose Level 118 mg/dL (70-99) Calcium Level 7.7 mg/dL (8.5-10.1) Troponin I Quantitative 0.030 ng/mL (0.000-0.055) Procalcitonin 0.86 ng/mL (0.00-0.10) Glucose (Fingerstick) 131 mg/dL (70-99) 166 mg/dL (70-99) Test 05/26/17 17:04 Glucose (Fingerstick) 168 mg/dL (70-99) Laboratory Tests Test 05/25/17 20:28 05/26/17 01:43 05/26/17 02:32 05/26/17 05:20 Urine Collection Type Unknown Urine Color Yellow Urine Clarity Clear Urine pH 5.5 Urine Specific Drayden 1.025 Urine Protein 100 mg/dL (NEG-TRACE) Urine Glucose (UA) Negative mg/dL (NEG) Urine Ketones (Stick) Negative mg/dL (NEG) Urine Blood Negative (NEG) Urine Nitrite Negative (NEG) Urine Bilirubin Negative (NEG) Urine Urobilinogen Dipstick 0.2 mg/dL (0.2 mg/dL) Urine Leukocyte Esterase Negative (NEG) Urine RBC 3-5 /HPF (0-2) Urine WBC 1-4 /HPF (0-4) Urine Squamous Epithelial Cells Few /LPF Urine Bacteria Few /HPF (0-FEW) Urine Cellular Casts Occ /HPF Urine Hyaline Casts Many /HPF Urine Red Blood Cell Casts Occasional /HPF Urine Mucus Slight /LPF Glucose (Fingerstick) 126 mg/dL (70-99) Nasal Screen MRSA (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8 x10^3/uL (1.0-4.8) Monocytes # (Auto) 1.2 x10^3/uL (0.0-1.1) Eosinophils # (Auto) 0.1 x10^3/uL (0.0-0.7) Basophils # (Auto) 0.1 x10^3/uL (0.0-0.2) Sodium Level 140 mmol/L (136-145) Potassium Level 3.5 mmol/L (3.5-5.1) Chloride Level 108 mmol/L (98-107) Carbon Dioxide Level 19 mmol/L (21-32) Anion Gap 13 (6-14) Blood Urea Nitrogen 39 mg/dL (8-26) Creatinine 1.8 mg/dL (0.7-1.3) Estimated GFR (Cockcroft-Gault) 37.5 Glucose Level 118 mg/dL (70-99) Calcium Level 7.7 mg/dL (8.5-10.1) Troponin I Quantitative 0.030 ng/mL (0.000-0.055) Procalcitonin 0.86 ng/mL (0.00-0.10) Test 05/26/17 07:37 05/26/17 11:39 05/26/17 17:04 Glucose (Fingerstick) 131 mg/dL (70-99) 166 mg/dL (70-99) 168 mg/dL (70-99) Medications Active Scripts Medications Dose Route/Sig Max Daily Dose Days Date Category Lisinopril 10 Mg Tablet 1 Tab PO DAILY 05/26/17 Reported [coumadin] 05/26/17 Reported Allopurinol 300 Mg Tablet 1 Tab PO DAILY 05/26/17 Reported Impression . DICTATED NO PULMONARY DISORDER FOLLOW ID REC NO PE STERLING NON COMPLIANT WITH CPAP CAROLINE CARY MD May 26, 2017 19:23
--- NOTE | 2017-05-26 20:26 | CONS ---
DATE OF CONSULTATION: 05/26/2017 REQUESTING PHYSICIAN: Dr. Deb Wilburn. REASON FOR CONSULTATION: Leukocytosis. HISTORY OF PRESENT ILLNESS: The patient is a 71-year-old gentleman who has a history of right below-knee amputation. In 03/2017, he bumped his left leg while he was getting into his car. He subsequently developed a hematoma requiring infusion and drainage. He subsequently had a skin graft on 04/24/2017. He also had a wound VAC application at that time. He has been in the [facility] facility. On 05/25/2017, he was discharged home. However, he developed significant generalized weakness, diaphoresis and nausea along with chills. He did not have any fever. He presented to [facility]. His blood pressure was noted to be 81/48 and he was started on antibiotics. His WBC count was 20.8 on 05/25/2017 with 1% bands and on 05/26/2017, his WBC got worse at 33.0 and hence I was consulted. Review of the prior records from [facility] indicates that his WBC count has been normal at 5.8 on 04/29/2017. He did have leukocytosis up to 20.7 on 04/19/2017 and on 04/12/2017, it was as high as 22.3. PAST MEDICAL HISTORY: Chronic kidney disease, diabetes mellitus type 2 with complications, diabetic neuropathy, gout, history of right below-knee amputation due to diabetic foot ulcer and infection, history of hypertension, paroxysmal atrial fibrillation, left leg hematoma status post split thickness skin grafting to the left posterior leg wound and wound VAC application on 04/24/2017. FAMILY HISTORY: Negative for any primary hematologic disorder. SOCIAL HISTORY: He is a former smoker. He quit on 04/03/1984. REVIEW OF SYSTEMS: A 12-point review of system was performed. Pertinent positives are mentioned in the history of present illness. Rest of the system review is negative. PHYSICAL EXAMINATION: GENERAL APPEARANCE: The patient is a 71-year-old gentleman, who is well developed, well nourished, and in no acute cardiorespiratory distress. VITAL SIGNS: Blood pressure 106/44, temperature 98.6. HEENT: Head atraumatic, normocephalic. Eyes: No icterus. NECK: Supple. CHEST: Bilaterally symmetrical. HEART: S1, S2 normal. ABDOMEN: Soft, nontender. CENTRAL NERVOUS SYSTEM: No focal neurological deficits. LYMPHATICS: No lymphadenopathy. SKIN: He has evidence of left calf wound, status post skin grafting. MUSCULOSKELETAL: He has right below knee amputation. LYMPHATICS: No lymphadenopathy. LABORATORY DATA: WBC 33.0, hemoglobin 9.0, platelet count 207 on 05/26/2017, creatinine 1.8, calcium 7.7. Review of the old records indicates that his WBC count was normal at 5.8 on 04/29/2017. Prior to that on 04/12/2017, his WBC count was 22.3. IMPRESSION AND PLAN: 1. Leukocytosis. This is a reactive leukocytosis and I do not suspect a primary bone marrow disorder. His WBC count on 04/12/2017 was 22.3 and on 04/22/2017, it normalized to 8.4. On 04/29/2017, it remained normal at 5.8. However, on 05/25/2017, it got worse at 20.8 and on 05/26/2017, it is worse again at 33.0. This is consistent with a reactive leukocytosis. This is not consistent with a primary bone marrow disorder. He does have evidence of left leg wounds status post skin grafting. There are no obvious signs of infection; however, Infectious Disease has been consulted for further recommendations. The patient did receive antibiotics. I would continue to monitor WBC count. I would expect the WBC count to improve. A bone marrow biopsy would not be diagnostic at this time. 2. Anemia. He has multiple comorbidities and I suspect he has anemia due to chronic disease. I will obtain iron studies, B12, folic acid levels, and reticulocyte count. 3. Chronic kidney disease. 4. Left leg wound, status post skin grafting. I discussed with Dr. Evangelina Vegas. OLAYINKA STAFFORD MD DR: KAREN/sergio JOB#: [id number] / [id number] EVANGELINA Tellez MD [facility] CENTERGaurang
[2017-05-26 23:00] VITALS: BP 131/48
--- NOTE | 2017-05-27 00:12 | CONS ---
DATE OF CONSULTATION: 05/26/2017 ATTENDING PHYSICIAN: Dr. Wilburn. REASON FOR CONSULTATION: The patient is seen in pulmonary consultation at the request of Dr. Wilburn for shortness of breath. HISTORY OF PRESENT ILLNESS: The patient is a 71-year-old male that called EMS because he was weak, short of breath and had some shaking chills. This happened 2 hours prior to admission. The patient denied chest pain. He had some unilateral numbness and weakness. He has a previous history of abscess of the left calf requiring surgical I&D with skin graft. He was evaluated by Infectious Disease Service for leukocytosis. He is on antibiotics. I reviewed his x-ray, which revealed no acute infiltrates. He also underwent VQ scan, which was reviewed. There was no evidence of unmatched perfusion defects. The patient states he now feels better. He does not have a productive cough. PAST MEDICAL HISTORY: Chronic AFib, right below knee amputation, left extremity skin grafting, hypertension, obesity, obstructive sleep apnea, noncompliant with CPAP. Chronic kidney disease. ALLERGIES: PENICILLIN AND CODEINE. FAMILY HISTORY: Remarkable for diabetes. SOCIAL HISTORY: There is no history of tobacco or alcohol. REVIEW OF SYSTEMS: As indicated above, otherwise, a 10-point system was reviewed and negative. PHYSICAL EXAMINATION: GENERAL: The patient was on room air in no respiratory distress. HEENT: Eyes, the sclerae were nonicteric. NECK: Jugular venous distention was not elevated. No lymphadenopathy. CHEST: Full expansion. LUNGS: Adequate airway flow, no wheezes. CARDIOVASCULAR: Regular rate and rhythm with S1, S2, no S3. ABDOMEN: Soft, nontender, nondistended, obese. EXTREMITIES: No clubbing, cyanosis. Evidence of BKA. NEUROLOGIC: The patient was awake, alert, following commands. A detailed neuro exam was not performed. LABORATORY DATA: Labs were reviewed. Chest x-ray and V/Q scan as indicated above. IMPRESSION: 1. Dyspnea, suspect secondary to possible new infection. His chest x-ray is clear. VQ scan, no evidence of pulmonary embolism. Doubt the dyspnea is related to pulmonary pathology. 2. Leukocytosis per Infectious Disease service. 3. Left lower extremity wound. 4. PENICILLIN ALLERGY. 5. Chronic kidney disease. PLAN: Pulmonary status is compensated. Continue current empiric antibiotics per ID. No further pulmonary workup required. I do appreciate the privilege in sharing the patient's care. CAROLINE CARY MD DR: JAIME/sergio JOB#: [id number] / [id number]
[2017-05-27] MEDS: PIPERACILLIN/TAZOBACTAM 3.375 GM in IV NORMAL SALINE 50ML 50 ML IV SCH ×4 (00:23→18:25)
[2017-05-27 03:00] VITALS: BP 139/53
[2017-05-27 04:31] LABS: BASO % 0 % (0-3); EOS % 1 % (0-3); HEMATOCRIT 25.8 % (39.0-53.0); HEMOGLOBIN 8.1 g/dL (13.0-17.5); LYMPH # 0.7 x10^3/uL (1.0-4.8); LYMPH % 4 % (24-48); MEAN CORPUSCULAR HEMOGLOBIN 27 pg (25-35); MEAN CORPUSCULAR HGB CONC 31 g/dL (31-37); MEAN CORPUSCULAR VOLUME 86 fL (79-100); MONO % 3 % (0-9); NEUT % 91 % (31-73); PLATELET COUNT 178 x10^3/uL (140-400); RED CELL DISTRIBUTION WIDTH 19.2 % (11.5-14.5); WHITE BLOOD COUNT 17.1 x10^3/uL (4.0-11.0)
[2017-05-27 04:40] LABS: INR 3.2 (0.8-1.1)
[2017-05-27 04:56] LABS: CALCIUM 7.5 mg/dL (8.5-10.1); CREATININE 1.6 mg/dL (0.7-1.3); GFR 42.9; POTASSIUM 3.3 mmol/L (3.5-5.1)
[2017-05-27 04:58] LABS: % SAT IRON 8 % (15-34); IRON,SERUM 10 ug/dL (65-175)
[2017-05-27 07:00] VITALS: BP 147/60
[2017-05-27] MEDS ORDERED: POTASSIUM CHLORIDE 20 MEQ TABLET.ER. PO ONE (08:30)
[2017-05-27 08:58] LABS: FOLATE 4.48 ng/ml (3.2-20.0)
[2017-05-27] MEDS ORDERED: CYANOCOBALAMIN (VITAMIN B-12) 1,000 MCG/ML VIAL IM STA (09:34)
--- NOTE | 2017-05-27 09:34 | PDOC ---
Infectious Disease Note Subjective Subjective Better. No chills/sweats Loose stool better Wound ok ROS ROS GEN: Denies fevers, chills, sweats HEENT: Denies blurred vision, sore throat CV: Denies chest pain RESP: Denies shortness of air, cough GI: Denies n/v/d NEURO: Denies confusion, dizziness MSK: Denies weakness, joint pain/swelling Vital Sign Vital Signs Vital Signs Date Time Temp Pulse Resp B/P (MAP) Pulse Ox O2 Delivery O2 Flow Rate FiO2 05/27/17 07:00 98.4 59 20 147/60 (89) 100 Room Air 98.4 Physical Exam PHYSICAL EXAM GENERAL: NAD, Alert, eating HEENT: PERRL, OC/OP - clear NECK: Supple, no JVD, no LN LUNGS: Clear HEART: S1S2, no gallop, no murmur ABD: Soft, NT, no organomegaly, no rebound, obese EXT: No edema, no cyanosis. Wounds with clean dressing J[employer]ELOPER: Alert, oriented x 3, no focal neurologic deficit SKIN: No rash IV: ok Labs Lab Laboratory Tests Test 05/26/17 11:39 05/26/17 17:04 05/26/17 20:51 05/27/17 03:30 Glucose (Fingerstick) 166 mg/dL (70-99) 168 mg/dL (70-99) 170 mg/dL (70-99) White Blood Count 17.1 x10^3/uL (4.0-11.0) Red Blood Count 3.00 x10^6/uL (4.30-5.70) Hemoglobin 8.1 g/dL (13.0-17.5) Hematocrit 25.8 % (39.0-53.0) Mean Corpuscular Volume 86 fL (79-100) Mean Corpuscular Hemoglobin 27 pg (25-35) Mean Corpuscular Hemoglobin Concent 31 g/dL (31-37) Red Cell Distribution Width 19.2 % (11.5-14.5) Platelet Count 178 x10^3/uL (140-400) Neutrophils (%) (Auto) 91 % (31-73) Lymphocytes (%) (Auto) 4 % (24-48) Monocytes (%) (Auto) 3 % (0-9) Eosinophils (%) (Auto) 1 % (0-3) Basophils (%) (Auto) 0 % (0-3) Neutrophils # (Auto) 15.6 x10^3uL (1.8-7.7) Lymphocytes # (Auto) 0.7 x10^3/uL (1.0-4.8) Monocytes # (Auto) 0.5 x10^3/uL (0.0-1.1) Eosinophils # (Auto) 0.2 x10^3/uL (0.0-0.7) Basophils # (Auto) 0.0 x10^3/uL (0.0-0.2) Reticulocyte Count (auto) 1.0 % (0.5-2.5) Prothrombin Time 31.0 SEC (11.7-14.0) Prothromb Time International Ratio 3.2 (0.8-1.1) Sodium Level 137 mmol/L (136-145) Potassium Level 3.3 mmol/L (3.5-5.1) Chloride Level 106 mmol/L (98-107) Carbon Dioxide Level 20 mmol/L (21-32) Anion Gap 11 (6-14) Blood Urea Nitrogen 28 mg/dL (8-26) Creatinine 1.6 mg/dL (0.7-1.3) Estimated GFR (Cockcroft-Gault) 42.9 Glucose Level 148 mg/dL (70-99) Calcium Level 7.5 mg/dL (8.5-10.1) Iron Level 10 ug/dL (65-175) Total Iron Binding Capacity 125 ug/dL (250-450) Iron Saturation 8 % (15-34) Ferritin 459 ng/mL (26-388) Troponin I Quantitative < 0.017 ng/mL (0.000-0.055) Vitamin B12 Level 353 pg/mL (247-911) Serum Folate 4.48 ng/ml (3.2-20.0) Test 05/27/17 07:22 Glucose (Fingerstick) 123 mg/dL (70-99) Objective Assessment Leukocytosis ? reactive ? viral. - better LLE wound PCN allergy - has tolerated Amox Hypotension CKD Plan Plan of Care Repeated Troponin this am mild trend - now better F/u Blood cults Cont Zyvox (avoid Vanc with DANIEL) and Zosyn. Change to po 05/28 if improves Cont local wound care F/u labs EVANGELINA KLEIN MD May 27, 2017 09:34
--- NOTE | 2017-05-27 09:40 | PDOC ---
PROGRESS NOTES Subjective Subjective HPI - severe leukocytosis ROS - no fever Objective Objective Vital Signs Date Time Temp Pulse Resp B/P (MAP) Pulse Ox O2 Delivery O2 Flow Rate FiO2 05/27/17 07:00 98.4 59 20 147/60 (89) 100 Room Air 98.4 Physical Exam Heart: Normal S1, Normal S2 General: Alert, Oriented X3 Lungs: Clear to auscultation Neuro: Normal speech Assessment Assessment Problems Medical Problems: (1) Acute renal failure Status: Acute (2) Anemia Status: Acute (3) Dyspnea Status: Acute (4) Leukocytosis Status: Acute IMPRESSION AND PLAN: 1. Leukocytosis. This is a reactive leukocytosis and I do not suspect a primary bone marrow disorder. His WBC count on 04/12/2017 was 22.3 and on 04/22/2017, it normalized to 8.4. On 04/29/2017, it remained normal at 5.8. However, on 05/25/2017, it got worse at 20.8 and on 05/26/2017, it is worse again at 33.0. This is consistent with a reactive leukocytosis. This is not consistent with a primary bone marrow disorder. He does have evidence of left leg wounds status post skin grafting. There are no obvious signs of infection; however, Infectious Disease has been consulted for further recommendations. The patient did receive antibiotics. I would continue to monitor WBC count. I would expect the WBC count to improve. A bone marrow biopsy would not be diagnostic at this time. WBC better at 17.1 on 05/27/17 2. Anemia. He has multiple comorbidities and I suspect he has anemia due to chronic disease. He also had iron deficiency and low B12. 3. Chronic kidney disease. 4. Left leg wound, status post skin grafting. 5. Iron def likely from blood loss from wound/surgery - Ordered venofer 500 mg x 1 on 05/27/17 6. B12 def - B12 low normal at 353 on 05/26/17. Ordered B12 1000mcg IM x 1 Comment Review of Relevant I have reviewed the following items nestor (where applicable) has been applied. Labs Laboratory Tests Test 05/25/17 17:35 05/25/17 18:45 05/25/17 20:28 05/26/17 01:43 White Blood Count 20.8 x10^3/uL (4.0-11.0) Red Blood Count 3.73 x10^6/uL (4.30-5.70) Hemoglobin 10.0 g/dL (13.0-17.5) Hematocrit 32.5 % (39.0-53.0) Mean Corpuscular Volume 87 fL (79-100) Mean Corpuscular Hemoglobin 27 pg (25-35) Mean Corpuscular Hemoglobin Concent 31 g/dL (31-37) Red Cell Distribution Width 19.1 % (11.5-14.5) Platelet Count 233 x10^3/uL (140-400) Neutrophils (%) (Auto) 91 % (31-73) Lymphocytes (%) (Auto) 4 % (24-48) Monocytes (%) (Auto) 5 % (0-9) Eosinophils (%) (Auto) 1 % (0-3) Basophils (%) (Auto) 1 % (0-3) Neutrophils # (Auto) 18.8 x10^3uL (1.8-7.7) Lymphocytes # (Auto) 0.7 x10^3/uL (1.0-4.8) Monocytes # (Auto) 1.0 x10^3/uL (0.0-1.1) Eosinophils # (Auto) 0.2 x10^3/uL (0.0-0.7) Basophils # (Auto) 0.1 x10^3/uL (0.0-0.2) Segmented Neutrophils % 90 % (35-66) Band Neutrophils % 1 % (0-9) Lymphocytes % 4 % (24-48) Monocytes % 3 % (0-10) Eosinophils % 2 % (0-5) Platelet Estimate Adequate (ADEQUATE) Hypochromasia Slight Anisocytosis Slight Prothrombin Time 34.3 SEC (11.7-14.0) Prothromb Time International Ratio 3.7 (0.8-1.1) Activated Partial Thromboplast Time 47 SEC (24-38) D-Dimer (Jessie) 0.72 ug/mlFEU (0.00-0.50) Sodium Level 141 mmol/L (136-145) Potassium Level 3.3 mmol/L (3.5-5.1) Chloride Level 108 mmol/L (98-107) Carbon Dioxide Level 21 mmol/L (21-32) Anion Gap 12 (6-14) Blood Urea Nitrogen 40 mg/dL (8-26) Creatinine 2.2 mg/dL (0.7-1.3) Estimated GFR (Cockcroft-Gault) 29.7 BUN/Creatinine Ratio 18 (6-20) Glucose Level 106 mg/dL (70-99) Calcium Level 8.4 mg/dL (8.5-10.1) Total Bilirubin 0.3 mg/dL (0.2-1.0) Aspartate Amino Transf (AST/SGOT) 13 U/L (15-37) Alanine Aminotransferase (ALT/SGPT) 27 U/L (16-63) Alkaline Phosphatase 93 U/L (46-116) Troponin I Quantitative 0.026 ng/mL (0.000-0.055) QZ-Kdn-A-Type Natriuretic Peptide 900 pg/mL (0-124) Total Protein 6.4 g/dL (6.4-8.2) Albumin 2.8 g/dL (3.4-5.0) Albumin/Globulin Ratio 0.8 (1.0-1.7) Urine Collection Type Unknown Urine Color Yellow Urine Clarity Clear Urine pH 5.5 Urine Specific [place] 1.025 Urine Protein 100 mg/dL (NEG-TRACE) Urine Glucose (UA) Negative mg/dL (NEG) Urine Ketones (Stick) Negative mg/dL (NEG) Urine Blood Negative (NEG) Urine Nitrite Negative (NEG) Urine Bilirubin Negative (NEG) Urine Urobilinogen Dipstick 0.2 mg/dL (0.2 mg/dL) Urine Leukocyte Esterase Negative (NEG) Urine RBC 3-5 /HPF (0-2) Urine WBC 1-4 /HPF (0-4) Urine Squamous Epithelial Cells Few /LPF Urine Bacteria Few /HPF (0-FEW) Urine Cellular Casts Occ /HPF Urine Hyaline Casts Many /HPF Urine Red Blood Cell Casts Occasional /HPF Urine Mucus Slight /LPF Glucose (Fingerstick) 126 mg/dL (70-99) Test 05/26/17 02:32 05/26/17 05:20 05/26/17 07:37 05/26/17 11:39 Nasal Screen MRSA (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8 x10^3/uL (1.0-4.8) Monocytes # (Auto) 1.2 x10^3/uL (0.0-1.1) Eosinophils # (Auto) 0.1 x10^3/uL (0.0-0.7) Basophils # (Auto) 0.1 x10^3/uL (0.0-0.2) Sodium Level 140 mmol/L (136-145) Potassium Level 3.5 mmol/L (3.5-5.1) Chloride Level 108 mmol/L (98-107) Carbon Dioxide Level 19 mmol/L (21-32) Anion Gap 13 (6-14) Blood Urea Nitrogen 39 mg/dL (8-26) Creatinine 1.8 mg/dL (0.7-1.3) Estimated GFR (Cockcroft-Gault) 37.5 Glucose Level 118 mg/dL (70-99) Calcium Level 7.7 mg/dL (8.5-10.1) Troponin I Quantitative 0.030 ng/mL (0.000-0.055) Procalcitonin 0.86 ng/mL (0.00-0.10) Glucose (Fingerstick) 131 mg/dL (70-99) 166 mg/dL (70-99) Test 05/26/17 17:04 05/26/17 20:51 05/27/17 03:30 05/27/17 07:22 Glucose (Fingerstick) 168 mg/dL (70-99) 170 mg/dL (70-99) 123 mg/dL (70-99) White Blood Count 17.1 x10^3/uL (4.0-11.0) Red Blood Count 3.00 x10^6/uL (4.30-5.70) Hemoglobin 8.1 g/dL (13.0-17.5) Hematocrit 25.8 % (39.0-53.0) Mean Corpuscular Volume 86 fL (79-100) Mean Corpuscular Hemoglobin 27 pg (25-35) Mean Corpuscular Hemoglobin Concent 31 g/dL (31-37) Red Cell Distribution Width 19.2 % (11.5-14.5) Platelet Count 178 x10^3/uL (140-400) Neutrophils (%) (Auto) 91 % (31-73) Lymphocytes (%) (Auto) 4 % (24-48) Monocytes (%) (Auto) 3 % (0-9) Eosinophils (%) (Auto) 1 % (0-3) Basophils (%) (Auto) 0 % (0-3) Neutrophils # (Auto) 15.6 x10^3uL (1.8-7.7) Lymphocytes # (Auto) 0.7 x10^3/uL (1.0-4.8) Monocytes # (Auto) 0.5 x10^3/uL (0.0-1.1) Eosinophils # (Auto) 0.2 x10^3/uL (0.0-0.7) Basophils # (Auto) 0.0 x10^3/uL (0.0-0.2) Reticulocyte Count (auto) 1.0 % (0.5-2.5) Prothrombin Time 31.0 SEC (11.7-14.0) Prothromb Time International Ratio 3.2 (0.8-1.1) Sodium Level 137 mmol/L (136-145) Potassium Level 3.3 mmol/L (3.5-5.1) Chloride Level 106 mmol/L (98-107) Carbon Dioxide Level 20 mmol/L (21-32) Anion Gap 11 (6-14) Blood Urea Nitrogen 28 mg/dL (8-26) Creatinine 1.6 mg/dL (0.7-1.3) Estimated GFR (Cockcroft-Gault) 42.9 Glucose Level 148 mg/dL (70-99) Calcium Level 7.5 mg/dL (8.5-10.1) Iron Level 10 ug/dL (65-175) Total Iron Binding Capacity 125 ug/dL (250-450) Iron Saturation 8 % (15-34) Ferritin 459 ng/mL (26-388) Troponin I Quantitative < 0.017 ng/mL (0.000-0.055) Vitamin B12 Level 353 pg/mL (247-911) Serum Folate 4.48 ng/ml (3.2-20.0) Laboratory Tests Test 05/26/17 11:39 05/26/17 17:04 05/26/17 20:51 05/27/17 03:30 Glucose (Fingerstick) 166 mg/dL (70-99) 168 mg/dL (70-99) 170 mg/dL (70-99) White Blood Count 17.1 x10^3/uL (4.0-11.0) Red Blood Count 3.00 x10^6/uL (4.30-5.70) Hemoglobin 8.1 g/dL (13.0-17.5) Hematocrit 25.8 % (39.0-53.0) Mean Corpuscular Volume 86 fL (79-100) Mean Corpuscular Hemoglobin 27 pg (25-35) Mean Corpuscular Hemoglobin Concent 31 g/dL (31-37) Red Cell Distribution Width 19.2 % (11.5-14.5) Platelet Count 178 x10^3/uL (140-400) Neutrophils (%) (Auto) 91 % (31-73) Lymphocytes (%) (Auto) 4 % (24-48) Monocytes (%) (Auto) 3 % (0-9) Eosinophils (%) (Auto) 1 % (0-3) Basophils (%) (Auto) 0 % (0-3) Neutrophils # (Auto) 15.6 x10^3uL (1.8-7.7) Lymphocytes # (Auto) 0.7 x10^3/uL (1.0-4.8) Monocytes # (Auto) 0.5 x10^3/uL (0.0-1.1) Eosinophils # (Auto) 0.2 x10^3/uL (0.0-0.7) Basophils # (Auto) 0.0 x10^3/uL (0.0-0.2) Reticulocyte Count (auto) 1.0 % (0.5-2.5) Prothrombin Time 31.0 SEC (11.7-14.0) Prothromb Time International Ratio 3.2 (0.8-1.1) Sodium Level 137 mmol/L (136-145) Potassium Level 3.3 mmol/L (3.5-5.1) Chloride Level 106 mmol/L (98-107) Carbon Dioxide Level 20 mmol/L (21-32) Anion Gap 11 (6-14) Blood Urea Nitrogen 28 mg/dL (8-26) Creatinine 1.6 mg/dL (0.7-1.3) Estimated GFR (Cockcroft-Gault) 42.9 Glucose Level 148 mg/dL (70-99) Calcium Level 7.5 mg/dL (8.5-10.1) Iron Level 10 ug/dL (65-175) Total Iron Binding Capacity 125 ug/dL (250-450) Iron Saturation 8 % (15-34) Ferritin 459 ng/mL (26-388) Troponin I Quantitative < 0.017 ng/mL (0.000-0.055) Vitamin B12 Level 353 pg/mL (247-911) Serum Folate 4.48 ng/ml (3.2-20.0) Test 05/27/17 07:22 Glucose (Fingerstick) 123 mg/dL (70-99) Medications Current Medications Iohexol (Omnipaque 300 Mg/ml) 75 ml 1X ONCE IV ; Start 05/25/17 at 18:45; Stop 05/25/17 at 18:48; Status DC Info (Do NOT chart on this entry -- for MONITORING) 1 each PRN DAILY PRN MC SEE COMMENTS; Start 05/25/17 at 19:00; Stop 05/27/17 at 18:59 Ondansetron HCl (Zofran) 4 mg PRN Q8HRS PRN IV NAUSEA/VOMITING; Start 05/25/17 at 21:45; Stop 05/26/17 at 21:44; Status DC Morphine Sulfate 2 mg PRN Q2HR PRN IV SEVERE PAIN Last administered on 13:18; Start 05/25/17 at 21:45; Stop 05/26/17 at 21:44; Status DC Acetaminophen (Tylenol) 650 mg PRN Q4HRS PRN PO FEVER; Start 05/25/17 at 21:45 ; Stop 05/26/17 at 21:44; Status DC Albuterol/ Ipratropium (Duoneb) 3 ml RTQID NEB Last administered on 05/26/17 19:48; Start 05/26/17 at 08:00; Stop 05/27/17 at 07:59; Status DC Ceftriaxone Sodium 50 ml @ 100 mls/hr 1X ONCE IV Last administered on 23:07; Start 05/25/17 at 22:00; Stop 05/25/17 at 22:29; Status DC Azithromycin 250 ml @ 250 mls/hr 1X ONCE IV Last administered on 05/26/17 01 :29; Start 05/25/17 at 22:00; Stop 05/25/17 at 22:59; Status DC Allopurinol (Zyloprim) 300 mg DAILY PO Last administered on 05/26/17 12:08; Start 05/26/17 at 11:00 Warfarin Sodium (Coumadin Per Pharmacy) 1 each PRN DAILY PRN MC SEE COMMENTS Last administered on 05/26/17 16:14; Start 05/26/17 at 10:45 Potassium Chloride (Klor-Con) 40 meq 1X ONCE PO Last administered on 12:08; Start 05/26/17 at 11:00; Stop 05/26/17 at 11:01; Status DC Linezolid 300 ml @ 300 mls/hr Q12HR IV Last administered on 05/26/17 21:13; Start 05/26/17 at 13:30 Piperacillin Sod/ Tazobactam Sod 3.375 gm/Sodium Chloride 50 ml @ 100 mls/hr Q6HRS IV Last administered on 05/27/17 06:00; Start 05/26/17 at 13:00 Potassium Chloride (Klor-Con) 40 meq 1X ONCE PO ; Start 05/27/17 at 08:30; Stop 05/27/17 at 08:31; Status DC Iron Sucrose 500 mg/Sodium Chloride 275 ml @ 78.571 mls/ hr 1X ONCE IV ; Start 05/27/17 at 09:45; Stop 05/27/17 at 13:14; Status UNV Cyanocobalamin (Vitamin B-12) 1,000 mcg ONCE STAT IM ; Start 05/27/17 at 09:34 ; Stop 05/27/17 at 09:35; Status UNV Active Scripts Active Reported Lisinopril 10 Mg Tablet 1 Tab PO DAILY [coumadin] Allopurinol 300 Mg Tablet 1 Tab PO DAILY Vitals/I & O Vital Sign - Last 24 Hours 05/26/17 05/26/17 05/26/17 05/26/17 09:48 11:00 11:14 13:18 Temp 98.6 98.6 Pulse 69 Resp 20 B/P (MAP) 142/59 (86) Pulse Ox 97 99 97 97 O2 Delivery Room Air Room Air Room Air Room Air 05/26/17 05/26/17 05/26/17 05/26/17 13:50 15:00 15:27 19:05 Temp 98.6 98.5 98.6 98.5 Pulse 77 67 Resp 18 18 B/P (MAP) 106/44 (64) 119/56 (77) Pulse Ox 97 99 97 98 O2 Delivery Room Air Room Air Room Air Room Air 05/26/17 05/26/17 05/26/17 05/27/17 19:49 20:00 23:00 03:00 Temp 98.7 98.8 98.7 98.8 Pulse 68 58 Resp 20 20 B/P (MAP) 131/48 (75) 139/53 (81) Pulse Ox 99 98 99 O2 Delivery Room Air Room Air Room Air Room Air 05/27/17 07:00 Temp 98.4 98.4 Pulse 59 Resp 20 B/P (MAP) 147/60 (89) Pulse Ox 100 O2 Delivery Room Air OLAYINKA STAFFORD MD May 27, 2017 09:40
[2017-05-27] MEDS ORDERED: IRON SUCROSE COMPLEX 500 MG in IV NORMAL SALINE 250ML 250 ML IV ONE (09:45)
[2017-05-27] MEDS: ALLOPURINOL 300 MG TABLET. PO SCH (09:56)
[2017-05-27] MEDS ORDERED: traMADol 50 MG TABLET PO PRN (10:45)
[2017-05-27 10:55] VITALS: BP 142/66
--- NOTE | 2017-05-27 11:21 | PDOC ---
PROGRESS NOTES Chief Complaint Chief Complaint Fatigue PMH: Right BKA LL skin graft Afib HTN Obesity History of Present Illness History of Present Illness Pt was laying in bed and conversant. He was very engaged regarding the TV in the room. Pt has no new complaints at this time and is in NAD. Discussed plan of care with him including waiting for resolution of of his leukocytosis and underlying infection. Pt has decreased potassium that was replaced PO. Dr. Tucker - Nephrology - would like ID to see pt, IVF, replace K as needed ID - check procalcitonin, blood cultures, and troponins -pt is on Zosyn and Zyvox Heme/Onc - reactive leukocytosis with no underlying BM disorder Pulm - no pulmonary issues present at this time, no PE, [place]ER[place] non-complaint with CPAP Vitals Vitals Vital Signs Date Time Temp Pulse Resp B/P (MAP) Pulse Ox O2 Delivery O2 Flow Rate FiO2 05/27/17 10:55 98.6 63 20 142/66 (91) 98 Room Air 98.6 Physical Exam General: Alert, Oriented X3, Cooperative, No acute distress Heart: Regular rate, Normal S1, Normal S2 Lungs: Clear Abdomen: Normal bowel sounds, Soft, No tenderness Extremities: No clubbing, No cyanosis, No edema, Normal pulses, Other (right BKA) Skin: No rashes, Other (LLE graft covered with bandages) Labs LABS Laboratory Tests Test 05/26/17 11:39 05/26/17 17:04 05/26/17 20:51 05/27/17 03:30 Glucose (Fingerstick) 166 mg/dL (70-99) 168 mg/dL (70-99) 170 mg/dL (70-99) White Blood Count 17.1 x10^3/uL (4.0-11.0) Red Blood Count 3.00 x10^6/uL (4.30-5.70) Hemoglobin 8.1 g/dL (13.0-17.5) Hematocrit 25.8 % (39.0-53.0) Mean Corpuscular Volume 86 fL (79-100) Mean Corpuscular Hemoglobin 27 pg (25-35) Mean Corpuscular Hemoglobin Concent 31 g/dL (31-37) Red Cell Distribution Width 19.2 % (11.5-14.5) Platelet Count 178 x10^3/uL (140-400) Neutrophils (%) (Auto) 91 % (31-73) Lymphocytes (%) (Auto) 4 % (24-48) Monocytes (%) (Auto) 3 % (0-9) Eosinophils (%) (Auto) 1 % (0-3) Basophils (%) (Auto) 0 % (0-3) Neutrophils # (Auto) 15.6 x10^3uL (1.8-7.7) Lymphocytes # (Auto) 0.7 x10^3/uL (1.0-4.8) Monocytes # (Auto) 0.5 x10^3/uL (0.0-1.1) Eosinophils # (Auto) 0.2 x10^3/uL (0.0-0.7) Basophils # (Auto) 0.0 x10^3/uL (0.0-0.2) Reticulocyte Count (auto) 1.0 % (0.5-2.5) Prothrombin Time 31.0 SEC (11.7-14.0) Prothromb Time International Ratio 3.2 (0.8-1.1) Sodium Level 137 mmol/L (136-145) Potassium Level 3.3 mmol/L (3.5-5.1) Chloride Level 106 mmol/L (98-107) Carbon Dioxide Level 20 mmol/L (21-32) Anion Gap 11 (6-14) Blood Urea Nitrogen 28 mg/dL (8-26) Creatinine 1.6 mg/dL (0.7-1.3) Estimated GFR (Cockcroft-Gault) 42.9 Glucose Level 148 mg/dL (70-99) Calcium Level 7.5 mg/dL (8.5-10.1) Iron Level 10 ug/dL (65-175) Total Iron Binding Capacity 125 ug/dL (250-450) Iron Saturation 8 % (15-34) Ferritin 459 ng/mL (26-388) Troponin I Quantitative < 0.017 ng/mL (0.000-0.055) Vitamin B12 Level 353 pg/mL (247-911) Serum Folate 4.48 ng/ml (3.2-20.0) Test 05/27/17 07:22 Glucose (Fingerstick) 123 mg/dL (70-99) Review of Systems Review of Systems Pt complains of hunger Pt complains of fatigue Assessment and Plan Assessmemt and Plan Problems Medical Problems: (1) Acute renal failure Status: Acute (2) Anemia Status: Acute (3) Dyspnea Status: Acute (4) Leukocytosis Status: Acute Fatigue PMH: Right BKA LL skin graft Afib HTN Obesity Plan: Gave potassium cont. Zosyn and Zyvox cont. IVF PT/OT appreciate subspecialist input cont. to monitor recheck labs Problems: Comment Review of Relevant I have reviewed the following items nestor (where applicable) has been applied. Labs Laboratory Tests Test 05/25/17 17:35 05/25/17 18:45 05/25/17 20:28 05/26/17 01:43 White Blood Count 20.8 x10^3/uL (4.0-11.0) Red Blood Count 3.73 x10^6/uL (4.30-5.70) Hemoglobin 10.0 g/dL (13.0-17.5) Hematocrit 32.5 % (39.0-53.0) Mean Corpuscular Volume 87 fL (79-100) Mean Corpuscular Hemoglobin 27 pg (25-35) Mean Corpuscular Hemoglobin Concent 31 g/dL (31-37) Red Cell Distribution Width 19.1 % (11.5-14.5) Platelet Count 233 x10^3/uL (140-400) Neutrophils (%) (Auto) 91 % (31-73) Lymphocytes (%) (Auto) 4 % (24-48) Monocytes (%) (Auto) 5 % (0-9) Eosinophils (%) (Auto) 1 % (0-3) Basophils (%) (Auto) 1 % (0-3) Neutrophils # (Auto) 18.8 x10^3uL (1.8-7.7) Lymphocytes # (Auto) 0.7 x10^3/uL (1.0-4.8) Monocytes # (Auto) 1.0 x10^3/uL (0.0-1.1) Eosinophils # (Auto) 0.2 x10^3/uL (0.0-0.7) Basophils # (Auto) 0.1 x10^3/uL (0.0-0.2) Segmented Neutrophils % 90 % (35-66) Band Neutrophils % 1 % (0-9) Lymphocytes % 4 % (24-48) Monocytes % 3 % (0-10) Eosinophils % 2 % (0-5) Platelet Estimate Adequate (ADEQUATE) Hypochromasia Slight Anisocytosis Slight Prothrombin Time 34.3 SEC (11.7-14.0) Prothromb Time International Ratio 3.7 (0.8-1.1) Activated Partial Thromboplast Time 47 SEC (24-38) D-Dimer (Jessie) 0.72 ug/mlFEU (0.00-0.50) Sodium Level 141 mmol/L (136-145) Potassium Level 3.3 mmol/L (3.5-5.1) Chloride Level 108 mmol/L (98-107) Carbon Dioxide Level 21 mmol/L (21-32) Anion Gap 12 (6-14) Blood Urea Nitrogen 40 mg/dL (8-26) Creatinine 2.2 mg/dL (0.7-1.3) Estimated GFR (Cockcroft-Gault) 29.7 BUN/Creatinine Ratio 18 (6-20) Glucose Level 106 mg/dL (70-99) Calcium Level 8.4 mg/dL (8.5-10.1) Total Bilirubin 0.3 mg/dL (0.2-1.0) Aspartate Amino Transf (AST/SGOT) 13 U/L (15-37) Alanine Aminotransferase (ALT/SGPT) 27 U/L (16-63) Alkaline Phosphatase 93 U/L (46-116) Troponin I Quantitative 0.026 ng/mL (0.000-0.055) MQ-Uxc-F-Type Natriuretic Peptide 900 pg/mL (0-124) Total Protein 6.4 g/dL (6.4-8.2) Albumin 2.8 g/dL (3.4-5.0) Albumin/Globulin Ratio 0.8 (1.0-1.7) Urine Collection Type Unknown Urine Color Yellow Urine Clarity Clear Urine pH 5.5 Urine Specific [place] 1.025 Urine Protein 100 mg/dL (NEG-TRACE) Urine Glucose (UA) Negative mg/dL (NEG) Urine Ketones (Stick) Negative mg/dL (NEG) Urine Blood Negative (NEG) Urine Nitrite Negative (NEG) Urine Bilirubin Negative (NEG) Urine Urobilinogen Dipstick 0.2 mg/dL (0.2 mg/dL) Urine Leukocyte Esterase Negative (NEG) Urine RBC 3-5 /HPF (0-2) Urine WBC 1-4 /HPF (0-4) Urine Squamous Epithelial Cells Few /LPF Urine Bacteria Few /HPF (0-FEW) Urine Cellular Casts Occ /HPF Urine Hyaline Casts Many /HPF Urine Red Blood Cell Casts Occasional /HPF Urine Mucus Slight /LPF Glucose (Fingerstick) 126 mg/dL (70-99) Test 05/26/17 02:32 05/26/17 05:20 05/26/17 07:37 05/26/17 11:39 Nasal Screen MRSA (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8 x10^3/uL (1.0-4.8) Monocytes # (Auto) 1.2 x10^3/uL (0.0-1.1) Eosinophils # (Auto) 0.1 x10^3/uL (0.0-0.7) Basophils # (Auto) 0.1 x10^3/uL (0.0-0.2) Sodium Level 140 mmol/L (136-145) Potassium Level 3.5 mmol/L (3.5-5.1) Chloride Level 108 mmol/L (98-107) Carbon Dioxide Level 19 mmol/L (21-32) Anion Gap 13 (6-14) Blood Urea Nitrogen 39 mg/dL (8-26) Creatinine 1.8 mg/dL (0.7-1.3) Estimated GFR (Cockcroft-Gault) 37.5 Glucose Level 118 mg/dL (70-99) Calcium Level 7.7 mg/dL (8.5-10.1) Troponin I Quantitative 0.030 ng/mL (0.000-0.055) Procalcitonin 0.86 ng/mL (0.00-0.10) Glucose (Fingerstick) 131 mg/dL (70-99) 166 mg/dL (70-99) Test 05/26/17 17:04 05/26/17 20:51 05/27/17 03:30 05/27/17 07:22 Glucose (Fingerstick) 168 mg/dL (70-99) 170 mg/dL (70-99) 123 mg/dL (70-99) White Blood Count 17.1 x10^3/uL (4.0-11.0) Red Blood Count 3.00 x10^6/uL (4.30-5.70) Hemoglobin 8.1 g/dL (13.0-17.5) Hematocrit 25.8 % (39.0-53.0) Mean Corpuscular Volume 86 fL (79-100) Mean Corpuscular Hemoglobin 27 pg (25-35) Mean Corpuscular Hemoglobin Concent 31 g/dL (31-37) Red Cell Distribution Width 19.2 % (11.5-14.5) Platelet Count 178 x10^3/uL (140-400) Neutrophils (%) (Auto) 91 % (31-73) Lymphocytes (%) (Auto) 4 % (24-48) Monocytes (%) (Auto) 3 % (0-9) Eosinophils (%) (Auto) 1 % (0-3) Basophils (%) (Auto) 0 % (0-3) Neutrophils # (Auto) 15.6 x10^3uL (1.8-7.7) Lymphocytes # (Auto) 0.7 x10^3/uL (1.0-4.8) Monocytes # (Auto) 0.5 x10^3/uL (0.0-1.1) Eosinophils # (Auto) 0.2 x10^3/uL (0.0-0.7) Basophils # (Auto) 0.0 x10^3/uL (0.0-0.2) Reticulocyte Count (auto) 1.0 % (0.5-2.5) Prothrombin Time 31.0 SEC (11.7-14.0) Prothromb Time International Ratio 3.2 (0.8-1.1) Sodium Level 137 mmol/L (136-145) Potassium Level 3.3 mmol/L (3.5-5.1) Chloride Level 106 mmol/L (98-107) Carbon Dioxide Level 20 mmol/L (21-32) Anion Gap 11 (6-14) Blood Urea Nitrogen 28 mg/dL (8-26) Creatinine 1.6 mg/dL (0.7-1.3) Estimated GFR (Cockcroft-Gault) 42.9 Glucose Level 148 mg/dL (70-99) Calcium Level 7.5 mg/dL (8.5-10.1) Iron Level 10 ug/dL (65-175) Total Iron Binding Capacity 125 ug/dL (250-450) Iron Saturation 8 % (15-34) Ferritin 459 ng/mL (26-388) Troponin I Quantitative < 0.017 ng/mL (0.000-0.055) Vitamin B12 Level 353 pg/mL (247-911) Serum Folate 4.48 ng/ml (3.2-20.0) Laboratory Tests Test 05/26/17 11:39 05/26/17 17:04 05/26/17 20:51 05/27/17 03:30 Glucose (Fingerstick) 166 mg/dL (70-99) 168 mg/dL (70-99) 170 mg/dL (70-99) White Blood Count 17.1 x10^3/uL (4.0-11.0) Red Blood Count 3.00 x10^6/uL (4.30-5.70) Hemoglobin 8.1 g/dL (13.0-17.5) Hematocrit 25.8 % (39.0-53.0) Mean Corpuscular Volume 86 fL (79-100) Mean Corpuscular Hemoglobin 27 pg (25-35) Mean Corpuscular Hemoglobin Concent 31 g/dL (31-37) Red Cell Distribution Width 19.2 % (11.5-14.5) Platelet Count 178 x10^3/uL (140-400) Neutrophils (%) (Auto) 91 % (31-73) Lymphocytes (%) (Auto) 4 % (24-48) Monocytes (%) (Auto) 3 % (0-9) Eosinophils (%) (Auto) 1 % (0-3) Basophils (%) (Auto) 0 % (0-3) Neutrophils # (Auto) 15.6 x10^3uL (1.8-7.7) Lymphocytes # (Auto) 0.7 x10^3/uL (1.0-4.8) Monocytes # (Auto) 0.5 x10^3/uL (0.0-1.1) Eosinophils # (Auto) 0.2 x10^3/uL (0.0-0.7) Basophils # (Auto) 0.0 x10^3/uL (0.0-0.2) Reticulocyte Count (auto) 1.0 % (0.5-2.5) Prothrombin Time 31.0 SEC (11.7-14.0) Prothromb Time International Ratio 3.2 (0.8-1.1) Sodium Level 137 mmol/L (136-145) Potassium Level 3.3 mmol/L (3.5-5.1) Chloride Level 106 mmol/L (98-107) Carbon Dioxide Level 20 mmol/L (21-32) Anion Gap 11 (6-14) Blood Urea Nitrogen 28 mg/dL (8-26) Creatinine 1.6 mg/dL (0.7-1.3) Estimated GFR (Cockcroft-Gault) 42.9 Glucose Level 148 mg/dL (70-99) Calcium Level 7.5 mg/dL (8.5-10.1) Iron Level 10 ug/dL (65-175) Total Iron Binding Capacity 125 ug/dL (250-450) Iron Saturation 8 % (15-34) Ferritin 459 ng/mL (26-388) Troponin I Quantitative < 0.017 ng/mL (0.000-0.055) Vitamin B12 Level 353 pg/mL (247-911) Serum Folate 4.48 ng/ml (3.2-20.0) Test 05/27/17 07:22 Glucose (Fingerstick) 123 mg/dL (70-99) Medications Current Medications Iohexol (Omnipaque 300 Mg/ml) 75 ml 1X ONCE IV ; Start 05/25/17 at 18:45; Stop 05/25/17 at 18:48; Status DC Info (Do NOT chart on this entry -- for MONITORING) 1 each PRN DAILY PRN MC SEE COMMENTS; Start 05/25/17 at 19:00; Stop 05/27/17 at 18:59 Ondansetron HCl (Zofran) 4 mg PRN Q8HRS PRN IV NAUSEA/VOMITING; Start 05/25/17 at 21:45; Stop 05/26/17 at 21:44; Status DC Morphine Sulfate 2 mg PRN Q2HR PRN IV SEVERE PAIN Last administered on 13:18; Start 05/25/17 at 21:45; Stop 05/26/17 at 21:44; Status DC Acetaminophen (Tylenol) 650 mg PRN Q4HRS PRN PO FEVER; Start 05/25/17 at 21:45 ; Stop 05/26/17 at 21:44; Status DC Albuterol/ Ipratropium (Duoneb) 3 ml RTQID NEB Last administered on 05/26/17 19:48; Start 05/26/17 at 08:00; Stop 05/27/17 at 07:59; Status DC Ceftriaxone Sodium 50 ml @ 100 mls/hr 1X ONCE IV Last administered on 23:07; Start 05/25/17 at 22:00; Stop 05/25/17 at 22:29; Status DC Azithromycin 250 ml @ 250 mls/hr 1X ONCE IV Last administered on 05/26/17 01 :29; Start 05/25/17 at 22:00; Stop 05/25/17 at 22:59; Status DC Allopurinol (Zyloprim) 300 mg DAILY PO Last administered on 05/27/17 09:56; Start 05/26/17 at 11:00 Warfarin Sodium (Coumadin Per Pharmacy) 1 each PRN DAILY PRN MC SEE COMMENTS Last administered on 05/26/17 16:14; Start 05/26/17 at 10:45 Potassium Chloride (Klor-Con) 40 meq 1X ONCE PO Last administered on 12:08; Start 05/26/17 at 11:00; Stop 05/26/17 at 11:01; Status DC Linezolid 300 ml @ 300 mls/hr Q12HR IV Last administered on 05/27/17 09:55; Start 05/26/17 at 13:30 Piperacillin Sod/ Tazobactam Sod 3.375 gm/Sodium Chloride 50 ml @ 100 mls/hr Q6HRS IV Last administered on 05/27/17 06:00; Start 05/26/17 at 13:00 Potassium Chloride (Klor-Con) 40 meq 1X ONCE PO Last administered on 09:56; Start 05/27/17 at 08:30; Stop 05/27/17 at 08:31; Status DC Iron Sucrose 500 mg/Sodium Chloride 275 ml @ 78.571 mls/ hr 1X ONCE IV ; Start 05/27/17 at 09:45; Stop 05/27/17 at 13:14 Cyanocobalamin (Vitamin B-12) 1,000 mcg ONCE STAT IM Last administered on 05/27 09:57; Start 05/27/17 at 09:34; Stop 05/27/17 at 09:39; Status DC Tramadol HCl (Ultram) 50 mg PRN Q6HRS PRN PO PAIN; Start 05/27/17 at 10:45 Active Scripts Active Reported Lisinopril 10 Mg Tablet 1 Tab PO DAILY [coumadin] Allopurinol 300 Mg Tablet 1 Tab PO DAILY Vitals/I & O Vital Sign - Last 24 Hours 05/26/17 05/26/17 05/26/17 05/26/17 11:14 13:18 13:50 15:00 Temp 98.6 98.6 Pulse 77 Resp 18 B/P (MAP) 106/44 (64) Pulse Ox 97 97 97 99 O2 Delivery Room Air Room Air Room Air Room Air 05/26/17 05/26/17 05/26/17 05/26/17 15:27 19:05 19:49 20:00 Temp 98.5 98.5 Pulse 67 Resp 18 B/P (MAP) 119/56 (77) Pulse Ox 97 98 99 O2 Delivery Room Air Room Air Room Air Room Air 05/26/17 05/27/17 05/27/17 05/27/17 23:00 03:00 07:00 10:55 Temp 98.7 98.8 98.4 98.6 98.7 98.8 98.4 98.6 Pulse 68 58 59 63 Resp 20 20 20 20 B/P (MAP) 131/48 (75) 139/53 (81) 147/60 (89) 142/66 (91) Pulse Ox 98 99 100 98 O2 Delivery Room Air Room Air Room Air Room Air ALEJANDRO BUNN III DO May 27, 2017 11:21
--- NOTE | 2017-05-27 11:48 | PDOC ---
PULMONARY PROGRESS NOTES Subjective no soa Vitals Vital Signs Date Time Temp Pulse Resp B/P (MAP) Pulse Ox O2 Delivery O2 Flow Rate FiO2 05/27/17 10:55 98.6 63 20 142/66 (91) 98 Room Air 98.6 General: Alert, No acute distress Lungs: Clear Cardiovascular: S1 Abdomen: Soft Neuro Exam: Alert Extremities: Other (right BKA, left wounds) Skin: Warm Labs Laboratory Tests Test 05/25/17 17:35 05/25/17 18:45 05/25/17 20:28 05/26/17 01:43 White Blood Count 20.8 x10^3/uL (4.0-11.0) Red Blood Count 3.73 x10^6/uL (4.30-5.70) Hemoglobin 10.0 g/dL (13.0-17.5) Hematocrit 32.5 % (39.0-53.0) Mean Corpuscular Volume 87 fL (79-100) Mean Corpuscular Hemoglobin 27 pg (25-35) Mean Corpuscular Hemoglobin Concent 31 g/dL (31-37) Red Cell Distribution Width 19.1 % (11.5-14.5) Platelet Count 233 x10^3/uL (140-400) Neutrophils (%) (Auto) 91 % (31-73) Lymphocytes (%) (Auto) 4 % (24-48) Monocytes (%) (Auto) 5 % (0-9) Eosinophils (%) (Auto) 1 % (0-3) Basophils (%) (Auto) 1 % (0-3) Neutrophils # (Auto) 18.8 x10^3uL (1.8-7.7) Lymphocytes # (Auto) 0.7 x10^3/uL (1.0-4.8) Monocytes # (Auto) 1.0 x10^3/uL (0.0-1.1) Eosinophils # (Auto) 0.2 x10^3/uL (0.0-0.7) Basophils # (Auto) 0.1 x10^3/uL (0.0-0.2) Segmented Neutrophils % 90 % (35-66) Band Neutrophils % 1 % (0-9) Lymphocytes % 4 % (24-48) Monocytes % 3 % (0-10) Eosinophils % 2 % (0-5) Platelet Estimate Adequate (ADEQUATE) Hypochromasia Slight Anisocytosis Slight Prothrombin Time 34.3 SEC (11.7-14.0) Prothromb Time International Ratio 3.7 (0.8-1.1) Activated Partial Thromboplast Time 47 SEC (24-38) D-Dimer (Jessie) 0.72 ug/mlFEU (0.00-0.50) Sodium Level 141 mmol/L (136-145) Potassium Level 3.3 mmol/L (3.5-5.1) Chloride Level 108 mmol/L (98-107) Carbon Dioxide Level 21 mmol/L (21-32) Anion Gap 12 (6-14) Blood Urea Nitrogen 40 mg/dL (8-26) Creatinine 2.2 mg/dL (0.7-1.3) Estimated GFR (Cockcroft-Gault) 29.7 BUN/Creatinine Ratio 18 (6-20) Glucose Level 106 mg/dL (70-99) Calcium Level 8.4 mg/dL (8.5-10.1) Total Bilirubin 0.3 mg/dL (0.2-1.0) Aspartate Amino Transf (AST/SGOT) 13 U/L (15-37) Alanine Aminotransferase (ALT/SGPT) 27 U/L (16-63) Alkaline Phosphatase 93 U/L (46-116) Troponin I Quantitative 0.026 ng/mL (0.000-0.055) DZ-Vll-B-Type Natriuretic Peptide 900 pg/mL (0-124) Total Protein 6.4 g/dL (6.4-8.2) Albumin 2.8 g/dL (3.4-5.0) Albumin/Globulin Ratio 0.8 (1.0-1.7) Urine Collection Type Unknown Urine Color Yellow Urine Clarity Clear Urine pH 5.5 Urine Specific [place] 1.025 Urine Protein 100 mg/dL (NEG-TRACE) Urine Glucose (UA) Negative mg/dL (NEG) Urine Ketones (Stick) Negative mg/dL (NEG) Urine Blood Negative (NEG) Urine Nitrite Negative (NEG) Urine Bilirubin Negative (NEG) Urine Urobilinogen Dipstick 0.2 mg/dL (0.2 mg/dL) Urine Leukocyte Esterase Negative (NEG) Urine RBC 3-5 /HPF (0-2) Urine WBC 1-4 /HPF (0-4) Urine Squamous Epithelial Cells Few /LPF Urine Bacteria Few /HPF (0-FEW) Urine Cellular Casts Occ /HPF Urine Hyaline Casts Many /HPF Urine Red Blood Cell Casts Occasional /HPF Urine Mucus Slight /LPF Glucose (Fingerstick) 126 mg/dL (70-99) Test 05/26/17 02:32 05/26/17 05:20 05/26/17 07:37 05/26/17 11:39 Nasal Screen MRSA (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8 x10^3/uL (1.0-4.8) Monocytes # (Auto) 1.2 x10^3/uL (0.0-1.1) Eosinophils # (Auto) 0.1 x10^3/uL (0.0-0.7) Basophils # (Auto) 0.1 x10^3/uL (0.0-0.2) Sodium Level 140 mmol/L (136-145) Potassium Level 3.5 mmol/L (3.5-5.1) Chloride Level 108 mmol/L (98-107) Carbon Dioxide Level 19 mmol/L (21-32) Anion Gap 13 (6-14) Blood Urea Nitrogen 39 mg/dL (8-26) Creatinine 1.8 mg/dL (0.7-1.3) Estimated GFR (Cockcroft-Gault) 37.5 Glucose Level 118 mg/dL (70-99) Calcium Level 7.7 mg/dL (8.5-10.1) Troponin I Quantitative 0.030 ng/mL (0.000-0.055) Procalcitonin 0.86 ng/mL (0.00-0.10) Glucose (Fingerstick) 131 mg/dL (70-99) 166 mg/dL (70-99) Test 05/26/17 17:04 05/26/17 20:51 05/27/17 03:30 05/27/17 07:22 Glucose (Fingerstick) 168 mg/dL (70-99) 170 mg/dL (70-99) 123 mg/dL (70-99) White Blood Count 17.1 x10^3/uL (4.0-11.0) Red Blood Count 3.00 x10^6/uL (4.30-5.70) Hemoglobin 8.1 g/dL (13.0-17.5) Hematocrit 25.8 % (39.0-53.0) Mean Corpuscular Volume 86 fL (79-100) Mean Corpuscular Hemoglobin 27 pg (25-35) Mean Corpuscular Hemoglobin Concent 31 g/dL (31-37) Red Cell Distribution Width 19.2 % (11.5-14.5) Platelet Count 178 x10^3/uL (140-400) Neutrophils (%) (Auto) 91 % (31-73) Lymphocytes (%) (Auto) 4 % (24-48) Monocytes (%) (Auto) 3 % (0-9) Eosinophils (%) (Auto) 1 % (0-3) Basophils (%) (Auto) 0 % (0-3) Neutrophils # (Auto) 15.6 x10^3uL (1.8-7.7) Lymphocytes # (Auto) 0.7 x10^3/uL (1.0-4.8) Monocytes # (Auto) 0.5 x10^3/uL (0.0-1.1) Eosinophils # (Auto) 0.2 x10^3/uL (0.0-0.7) Basophils # (Auto) 0.0 x10^3/uL (0.0-0.2) Reticulocyte Count (auto) 1.0 % (0.5-2.5) Prothrombin Time 31.0 SEC (11.7-14.0) Prothromb Time International Ratio 3.2 (0.8-1.1) Sodium Level 137 mmol/L (136-145) Potassium Level 3.3 mmol/L (3.5-5.1) Chloride Level 106 mmol/L (98-107) Carbon Dioxide Level 20 mmol/L (21-32) Anion Gap 11 (6-14) Blood Urea Nitrogen 28 mg/dL (8-26) Creatinine 1.6 mg/dL (0.7-1.3) Estimated GFR (Cockcroft-Gault) 42.9 Glucose Level 148 mg/dL (70-99) Calcium Level 7.5 mg/dL (8.5-10.1) Iron Level 10 ug/dL (65-175) Total Iron Binding Capacity 125 ug/dL (250-450) Iron Saturation 8 % (15-34) Ferritin 459 ng/mL (26-388) Troponin I Quantitative < 0.017 ng/mL (0.000-0.055) Vitamin B12 Level 353 pg/mL (247-911) Serum Folate 4.48 ng/ml (3.2-20.0) Laboratory Tests Test 05/26/17 17:04 05/26/17 20:51 05/27/17 03:30 05/27/17 07:22 Glucose (Fingerstick) 168 mg/dL (70-99) 170 mg/dL (70-99) 123 mg/dL (70-99) White Blood Count 17.1 x10^3/uL (4.0-11.0) Red Blood Count 3.00 x10^6/uL (4.30-5.70) Hemoglobin 8.1 g/dL (13.0-17.5) Hematocrit 25.8 % (39.0-53.0) Mean Corpuscular Volume 86 fL (79-100) Mean Corpuscular Hemoglobin 27 pg (25-35) Mean Corpuscular Hemoglobin Concent 31 g/dL (31-37) Red Cell Distribution Width 19.2 % (11.5-14.5) Platelet Count 178 x10^3/uL (140-400) Neutrophils (%) (Auto) 91 % (31-73) Lymphocytes (%) (Auto) 4 % (24-48) Monocytes (%) (Auto) 3 % (0-9) Eosinophils (%) (Auto) 1 % (0-3) Basophils (%) (Auto) 0 % (0-3) Neutrophils # (Auto) 15.6 x10^3uL (1.8-7.7) Lymphocytes # (Auto) 0.7 x10^3/uL (1.0-4.8) Monocytes # (Auto) 0.5 x10^3/uL (0.0-1.1) Eosinophils # (Auto) 0.2 x10^3/uL (0.0-0.7) Basophils # (Auto) 0.0 x10^3/uL (0.0-0.2) Reticulocyte Count (auto) 1.0 % (0.5-2.5) Prothrombin Time 31.0 SEC (11.7-14.0) Prothromb Time International Ratio 3.2 (0.8-1.1) Sodium Level 137 mmol/L (136-145) Potassium Level 3.3 mmol/L (3.5-5.1) Chloride Level 106 mmol/L (98-107) Carbon Dioxide Level 20 mmol/L (21-32) Anion Gap 11 (6-14) Blood Urea Nitrogen 28 mg/dL (8-26) Creatinine 1.6 mg/dL (0.7-1.3) Estimated GFR (Cockcroft-Gault) 42.9 Glucose Level 148 mg/dL (70-99) Calcium Level 7.5 mg/dL (8.5-10.1) Iron Level 10 ug/dL (65-175) Total Iron Binding Capacity 125 ug/dL (250-450) Iron Saturation 8 % (15-34) Ferritin 459 ng/mL (26-388) Troponin I Quantitative < 0.017 ng/mL (0.000-0.055) Vitamin B12 Level 353 pg/mL (247-911) Serum Folate 4.48 ng/ml (3.2-20.0) Medications Active Scripts Medications Dose Route/Sig Max Daily Dose Days Date Category Lisinopril 10 Mg Tablet 1 Tab PO DAILY 05/26/17 Reported [coumadin] 05/26/17 Reported Allopurinol 300 Mg Tablet 1 Tab PO DAILY 05/26/17 Reported Impression . 1. Dyspnea, suspect secondary to possible new infection. His chest x-ray is clear. VQ scan, no evidence of pulmonary embolism. Doubt the dyspnea is related to pulmonary pathology. RESOLVED now 2. Leukocytosis per Infectious Disease service.improving 3. Left lower extremity wound. 4. PENICILLIN ALLERGY. 5. Chronic kidney disease. Plan . Pulmonary status is compensated. Continue current empiric antibiotics per ID. No further pulmonary workup required. monitor wbc count KRYSTAL KOVACS MD May 27, 2017 11:48
--- NOTE | 2017-05-27 12:12 | PDOC ---
Renal-Progress Notes Subjective Notes Notes NO NEW COMPLAINTS History of Present Illness Hx of present illness STABLE Vitals Vitals Vital Signs Date Time Temp Pulse Resp B/P (MAP) Pulse Ox O2 Delivery O2 Flow Rate FiO2 05/27/17 10:55 98.6 63 20 142/66 (91) 98 Room Air 98.6 Weight Weight [ ] Labs Labs Laboratory Tests Test 05/26/17 17:04 05/26/17 20:51 05/27/17 03:30 05/27/17 07:22 Glucose (Fingerstick) 168 mg/dL (70-99) 170 mg/dL (70-99) 123 mg/dL (70-99) White Blood Count 17.1 x10^3/uL (4.0-11.0) Red Blood Count 3.00 x10^6/uL (4.30-5.70) Hemoglobin 8.1 g/dL (13.0-17.5) Hematocrit 25.8 % (39.0-53.0) Mean Corpuscular Volume 86 fL (79-100) Mean Corpuscular Hemoglobin 27 pg (25-35) Mean Corpuscular Hemoglobin Concent 31 g/dL (31-37) Red Cell Distribution Width 19.2 % (11.5-14.5) Platelet Count 178 x10^3/uL (140-400) Neutrophils (%) (Auto) 91 % (31-73) Lymphocytes (%) (Auto) 4 % (24-48) Monocytes (%) (Auto) 3 % (0-9) Eosinophils (%) (Auto) 1 % (0-3) Basophils (%) (Auto) 0 % (0-3) Neutrophils # (Auto) 15.6 x10^3uL (1.8-7.7) Lymphocytes # (Auto) 0.7 x10^3/uL (1.0-4.8) Monocytes # (Auto) 0.5 x10^3/uL (0.0-1.1) Eosinophils # (Auto) 0.2 x10^3/uL (0.0-0.7) Basophils # (Auto) 0.0 x10^3/uL (0.0-0.2) Reticulocyte Count (auto) 1.0 % (0.5-2.5) Prothrombin Time 31.0 SEC (11.7-14.0) Prothromb Time International Ratio 3.2 (0.8-1.1) Sodium Level 137 mmol/L (136-145) Potassium Level 3.3 mmol/L (3.5-5.1) Chloride Level 106 mmol/L (98-107) Carbon Dioxide Level 20 mmol/L (21-32) Anion Gap 11 (6-14) Blood Urea Nitrogen 28 mg/dL (8-26) Creatinine 1.6 mg/dL (0.7-1.3) Estimated GFR (Cockcroft-Gault) 42.9 Glucose Level 148 mg/dL (70-99) Calcium Level 7.5 mg/dL (8.5-10.1) Iron Level 10 ug/dL (65-175) Total Iron Binding Capacity 125 ug/dL (250-450) Iron Saturation 8 % (15-34) Ferritin 459 ng/mL (26-388) Troponin I Quantitative < 0.017 ng/mL (0.000-0.055) Vitamin B12 Level 353 pg/mL (247-911) Serum Folate 4.48 ng/ml (3.2-20.0) Test 05/27/17 11:21 Glucose (Fingerstick) 199 mg/dL (70-99) Review of Systems Constitutional: yes: weakness, alert, oriented Ears/Nose/Throat: Yes: no symptom reported Eyes: Yes: no symptom reported Pulmonary: Yes no symptom reported Cardiovascular: Yes no symptom reported Gastrointestional: Yes: no symptom reported Genitourinary: Yes: no symptom reported Musculoskeletal: Yes: muscle stiffness Skin: Yes no symptom reported Endocrine: Yes: no symptom reported Physical Exam General Appearance: no apparent distress Skin: warm Respiratory: bilateral CTA Heart: S1S2 Abdomen: soft, bowel sounds present Genitourinary: bladder flat Extremities: pulses present Neurology: alert, oriented Assessment Assessment IMP CKD STAGE 3 - CR STABLE LEUCOCYTOSIS L LE WOUND ANEMIA LOW K IRON DEFICIENCY DM II HTN PLAN CONT IVF'S CONT ANTIBIOTICS REPLACE K ON IV IRON ARLEN LIMON MD May 27, 2017 12:12
[2017-05-27] MEDS: oxyCODONE/APAP 5/325 1 TAB TABLET PO PRN ×2 (12:17→18:08)
[2017-05-27] MEDS ORDERED: WARFARIN 1 MG TABLET. PO ONE (17:30)
[2017-05-27 19:32] VITALS: BP 131/61
[2017-05-27 23:54] VITALS: BP 166/72
[2017-05-28] MEDS: PIPERACILLIN/TAZOBACTAM 3.375 GM in IV NORMAL SALINE 50ML 50 ML IV SCH ×2 (00:07→05:23)
[2017-05-28] MEDS: oxyCODONE/APAP 5/325 1 TAB TABLET PO PRN ×3 (00:08→20:31)
[2017-05-28 03:36] VITALS: BP 126/57
[2017-05-28 04:12] LABS: BASO # 0.1 x10^3/uL (0.0-0.2); BASO % 1 % (0-3); EOS % 2 % (0-3); HEMATOCRIT 26.1 % (39.0-53.0); HEMOGLOBIN 8.3 g/dL (13.0-17.5); LYMPH # 0.6 x10^3/uL (1.0-4.8); LYMPH % 5 % (24-48); MEAN CORPUSCULAR HEMOGLOBIN 28 pg (25-35); MEAN CORPUSCULAR HGB CONC 32 g/dL (31-37); MEAN CORPUSCULAR VOLUME 86 fL (79-100); MONO % 3 % (0-9); NEUT % 90 % (31-73); PLATELET COUNT 180 x10^3/uL (140-400); RED BLOOD COUNT 3.03 x10^6/uL (4.30-5.70); RED CELL DISTRIBUTION WIDTH 19.3 % (11.5-14.5); WHITE BLOOD COUNT 14.2 x10^3/uL (4.0-11.0)
[2017-05-28 04:31] LABS: CALCIUM 7.7 mg/dL (8.5-10.1); CREATININE 1.4 mg/dL (0.7-1.3); GFR 50.1; POTASSIUM 3.4 mmol/L (3.5-5.1)
[2017-05-28 07:33] VITALS: BP 151/58
[2017-05-28] MEDS: ALLOPURINOL 300 MG TABLET. PO SCH (07:39)
[2017-05-28] MEDS ORDERED: POTASSIUM CHLORIDE 20 MEQ TABLET.ER. PO ONE (08:30)
--- NOTE | 2017-05-28 08:55 | PDOC ---
Infectious Disease Note Subjective Subjective Cont to improve. No chills/sweats Loose stool better Wound ok ROS ROS GEN: Denies fevers, chills, sweats HEENT: Denies blurred vision, sore throat CV: Denies chest pain RESP: Denies shortness of air, cough GI: Denies n/v/d NEURO: Denies confusion, dizziness MSK: Denies weakness, joint pain/swelling Vital Sign Vital Signs Vital Signs Date Time Temp Pulse Resp B/P (MAP) Pulse Ox O2 Delivery O2 Flow Rate FiO2 05/28/17 08:00 Room Air 05/28/17 07:40 99 05/28/17 07:33 97.9 56 20 151/58 (89) 97.9 Physical Exam PHYSICAL EXAM GENERAL: NAD, Alert HEENT: PERRL, OC/OP -clear NECK: Supple, no JVD, no LN LUNGS: Clear HEART: S1S2, no gallop, no murmur ABD: Soft, NT, no organomegaly, no rebound, obese EXT: No edema, no cyanosis. 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, no focal neurologic deficit SKIN: No rash IV: ok Labs Lab Laboratory Tests Test 05/27/17 11:21 05/27/17 17:04 05/27/17 21:40 05/28/17 03:35 Glucose (Fingerstick) 199 mg/dL (70-99) 116 mg/dL (70-99) 157 mg/dL (70-99) White Blood Count 14.2 x10^3/uL (4.0-11.0) Red Blood Count 3.03 x10^6/uL (4.30-5.70) Hemoglobin 8.3 g/dL (13.0-17.5) Hematocrit 26.1 % (39.0-53.0) Mean Corpuscular Volume 86 fL (79-100) Mean Corpuscular Hemoglobin 28 pg (25-35) Mean Corpuscular Hemoglobin Concent 32 g/dL (31-37) Red Cell Distribution Width 19.3 % (11.5-14.5) Platelet Count 180 x10^3/uL (140-400) Neutrophils (%) (Auto) 90 % (31-73) Lymphocytes (%) (Auto) 5 % (24-48) Monocytes (%) (Auto) 3 % (0-9) Eosinophils (%) (Auto) 2 % (0-3) Basophils (%) (Auto) 1 % (0-3) Neutrophils # (Auto) 12.8 x10^3uL (1.8-7.7) Lymphocytes # (Auto) 0.6 x10^3/uL (1.0-4.8) Monocytes # (Auto) 0.4 x10^3/uL (0.0-1.1) Eosinophils # (Auto) 0.3 x10^3/uL (0.0-0.7) Basophils # (Auto) 0.1 x10^3/uL (0.0-0.2) Sodium Level 138 mmol/L (136-145) Potassium Level 3.4 mmol/L (3.5-5.1) Chloride Level 107 mmol/L (98-107) Carbon Dioxide Level 21 mmol/L (21-32) Anion Gap 10 (6-14) Blood Urea Nitrogen 19 mg/dL (8-26) Creatinine 1.4 mg/dL (0.7-1.3) Estimated GFR (Cockcroft-Gault) 50.1 Glucose Level 114 mg/dL (70-99) Calcium Level 7.7 mg/dL (8.5-10.1) Objective Assessment Leukocytosis ? reactive ? viral. - better LLE wound PCN allergy - has tolerated Amox Hypotension CKD Plan Plan of Care Change to Augmentin/Doxy for 7 days Ok to d/c home from ID standpoint Can F/u ID office in one week [phone] Cont local wound care EVANGELINA KLEIN MD May 28, 2017 08:55
[2017-05-28] MEDS: DOXYCYCLINE HYCLATE 100 MG TABLET PO SCH ×2 (09:08→20:18)
[2017-05-28] MEDS: AMOXICILLIN/K CLAV 875/125MG TABLET. PO SCH ×2 (09:08→20:18)
--- NOTE | 2017-05-28 09:43 | PDOC ---
PROGRESS NOTES Chief Complaint Chief Complaint Fatigue PMH: Right BKA LL skin graft Afib HTN Obesity History of Present Illness History of Present Illness Pt was laying in bed and conversant. He was focused on the TV. Contact precautions were observed the entire time. Pt has no new complaints and appears in NAD. RN was in the room just beforehand Plan of care was discussed with pt including waiting for WBC to return to baseline. ID - cont. zosyn and zyvox, F/U labs Heme/Onc - reactive leukocytosis, low B12 and iron, ordered replacements for those Pulmonary - compensated resp. status Nephrology - cont. IVF, cont. abx, replace K as needed Vitals Vitals Vital Signs Date Time Temp Pulse Resp B/P (MAP) Pulse Ox O2 Delivery O2 Flow Rate FiO2 05/28/17 08:40 99 Room Air 05/28/17 07:33 97.9 56 20 151/58 (89) 97.9 Physical Exam General: Alert, Oriented X3, Cooperative, No acute distress Heart: Regular rate, Normal S1, Normal S2 Lungs: Clear Abdomen: Normal bowel sounds, Soft, No tenderness Extremities: No clubbing, No cyanosis, No edema, Normal pulses, Other (right BKA) Skin: No rashes, Other (LLE graft covered with bandages) Labs LABS Laboratory Tests Test 05/27/17 11:21 05/27/17 17:04 05/27/17 21:40 05/28/17 03:35 Glucose (Fingerstick) 199 mg/dL (70-99) 116 mg/dL (70-99) 157 mg/dL (70-99) White Blood Count 14.2 x10^3/uL (4.0-11.0) Red Blood Count 3.03 x10^6/uL (4.30-5.70) Hemoglobin 8.3 g/dL (13.0-17.5) Hematocrit 26.1 % (39.0-53.0) Mean Corpuscular Volume 86 fL (79-100) Mean Corpuscular Hemoglobin 28 pg (25-35) Mean Corpuscular Hemoglobin Concent 32 g/dL (31-37) Red Cell Distribution Width 19.3 % (11.5-14.5) Platelet Count 180 x10^3/uL (140-400) Neutrophils (%) (Auto) 90 % (31-73) Lymphocytes (%) (Auto) 5 % (24-48) Monocytes (%) (Auto) 3 % (0-9) Eosinophils (%) (Auto) 2 % (0-3) Basophils (%) (Auto) 1 % (0-3) Neutrophils # (Auto) 12.8 x10^3uL (1.8-7.7) Lymphocytes # (Auto) 0.6 x10^3/uL (1.0-4.8) Monocytes # (Auto) 0.4 x10^3/uL (0.0-1.1) Eosinophils # (Auto) 0.3 x10^3/uL (0.0-0.7) Basophils # (Auto) 0.1 x10^3/uL (0.0-0.2) Sodium Level 138 mmol/L (136-145) Potassium Level 3.4 mmol/L (3.5-5.1) Chloride Level 107 mmol/L (98-107) Carbon Dioxide Level 21 mmol/L (21-32) Anion Gap 10 (6-14) Blood Urea Nitrogen 19 mg/dL (8-26) Creatinine 1.4 mg/dL (0.7-1.3) Estimated GFR (Cockcroft-Gault) 50.1 Glucose Level 114 mg/dL (70-99) Calcium Level 7.7 mg/dL (8.5-10.1) Review of Systems Review of Systems Pt complains of fatigue Pt complains of hunger Assessment and Plan Assessmemt and Plan Problems Medical Problems: (1) Acute renal failure Status: Acute (2) Anemia Status: Acute (3) Dyspnea Status: Acute (4) Leukocytosis Status: Acute Fatigue PMH: Right BKA LL skin graft Afib HTN Obesity 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 abx Appreciate subspecialist input PT/OT Problems: Comment Review of Relevant I have reviewed the following items nestor (where applicable) has been applied. Labs Laboratory Tests Test 05/26/17 11:39 05/26/17 17:04 05/26/17 20:51 05/27/17 03:30 Glucose (Fingerstick) 166 mg/dL (70-99) 168 mg/dL (70-99) 170 mg/dL (70-99) White Blood Count 17.1 x10^3/uL (4.0-11.0) Red Blood Count 3.00 x10^6/uL (4.30-5.70) Hemoglobin 8.1 g/dL (13.0-17.5) Hematocrit 25.8 % (39.0-53.0) Mean Corpuscular Volume 86 fL (79-100) Mean Corpuscular Hemoglobin 27 pg (25-35) Mean Corpuscular Hemoglobin Concent 31 g/dL (31-37) Red Cell Distribution Width 19.2 % (11.5-14.5) Platelet Count 178 x10^3/uL (140-400) Neutrophils (%) (Auto) 91 % (31-73) Lymphocytes (%) (Auto) 4 % (24-48) Monocytes (%) (Auto) 3 % (0-9) Eosinophils (%) (Auto) 1 % (0-3) Basophils (%) (Auto) 0 % (0-3) Neutrophils # (Auto) 15.6 x10^3uL (1.8-7.7) Lymphocytes # (Auto) 0.7 x10^3/uL (1.0-4.8) Monocytes # (Auto) 0.5 x10^3/uL (0.0-1.1) Eosinophils # (Auto) 0.2 x10^3/uL (0.0-0.7) Basophils # (Auto) 0.0 x10^3/uL (0.0-0.2) Reticulocyte Count (auto) 1.0 % (0.5-2.5) Prothrombin Time 31.0 SEC (11.7-14.0) Prothromb Time International Ratio 3.2 (0.8-1.1) Sodium Level 137 mmol/L (136-145) Potassium Level 3.3 mmol/L (3.5-5.1) Chloride Level 106 mmol/L (98-107) Carbon Dioxide Level 20 mmol/L (21-32) Anion Gap 11 (6-14) Blood Urea Nitrogen 28 mg/dL (8-26) Creatinine 1.6 mg/dL (0.7-1.3) Estimated GFR (Cockcroft-Gault) 42.9 Glucose Level 148 mg/dL (70-99) Calcium Level 7.5 mg/dL (8.5-10.1) Iron Level 10 ug/dL (65-175) Total Iron Binding Capacity 125 ug/dL (250-450) Iron Saturation 8 % (15-34) Ferritin 459 ng/mL (26-388) Troponin I Quantitative < 0.017 ng/mL (0.000-0.055) Vitamin B12 Level 353 pg/mL (247-911) Serum Folate 4.48 ng/ml (3.2-20.0) Test 05/27/17 07:22 05/27/17 11:21 05/27/17 17:04 05/27/17 21:40 Glucose (Fingerstick) 123 mg/dL (70-99) 199 mg/dL (70-99) 116 mg/dL (70-99) 157 mg/dL (70-99) Test 05/28/17 03:35 White Blood Count 14.2 x10^3/uL (4.0-11.0) Red Blood Count 3.03 x10^6/uL (4.30-5.70) Hemoglobin 8.3 g/dL (13.0-17.5) Hematocrit 26.1 % (39.0-53.0) Mean Corpuscular Volume 86 fL (79-100) Mean Corpuscular Hemoglobin 28 pg (25-35) Mean Corpuscular Hemoglobin Concent 32 g/dL (31-37) Red Cell Distribution Width 19.3 % (11.5-14.5) Platelet Count 180 x10^3/uL (140-400) Neutrophils (%) (Auto) 90 % (31-73) Lymphocytes (%) (Auto) 5 % (24-48) Monocytes (%) (Auto) 3 % (0-9) Eosinophils (%) (Auto) 2 % (0-3) Basophils (%) (Auto) 1 % (0-3) Neutrophils # (Auto) 12.8 x10^3uL (1.8-7.7) Lymphocytes # (Auto) 0.6 x10^3/uL (1.0-4.8) Monocytes # (Auto) 0.4 x10^3/uL (0.0-1.1) Eosinophils # (Auto) 0.3 x10^3/uL (0.0-0.7) Basophils # (Auto) 0.1 x10^3/uL (0.0-0.2) Sodium Level 138 mmol/L (136-145) Potassium Level 3.4 mmol/L (3.5-5.1) Chloride Level 107 mmol/L (98-107) Carbon Dioxide Level 21 mmol/L (21-32) Anion Gap 10 (6-14) Blood Urea Nitrogen 19 mg/dL (8-26) Creatinine 1.4 mg/dL (0.7-1.3) Estimated GFR (Cockcroft-Gault) 50.1 Glucose Level 114 mg/dL (70-99) Calcium Level 7.7 mg/dL (8.5-10.1) Laboratory Tests Test 05/27/17 11:21 05/27/17 17:04 05/27/17 21:40 05/28/17 03:35 Glucose (Fingerstick) 199 mg/dL (70-99) 116 mg/dL (70-99) 157 mg/dL (70-99) White Blood Count 14.2 x10^3/uL (4.0-11.0) Red Blood Count 3.03 x10^6/uL (4.30-5.70) Hemoglobin 8.3 g/dL (13.0-17.5) Hematocrit 26.1 % (39.0-53.0) Mean Corpuscular Volume 86 fL (79-100) Mean Corpuscular Hemoglobin 28 pg (25-35) Mean Corpuscular Hemoglobin Concent 32 g/dL (31-37) Red Cell Distribution Width 19.3 % (11.5-14.5) Platelet Count 180 x10^3/uL (140-400) Neutrophils (%) (Auto) 90 % (31-73) Lymphocytes (%) (Auto) 5 % (24-48) Monocytes (%) (Auto) 3 % (0-9) Eosinophils (%) (Auto) 2 % (0-3) Basophils (%) (Auto) 1 % (0-3) Neutrophils # (Auto) 12.8 x10^3uL (1.8-7.7) Lymphocytes # (Auto) 0.6 x10^3/uL (1.0-4.8) Monocytes # (Auto) 0.4 x10^3/uL (0.0-1.1) Eosinophils # (Auto) 0.3 x10^3/uL (0.0-0.7) Basophils # (Auto) 0.1 x10^3/uL (0.0-0.2) Sodium Level 138 mmol/L (136-145) Potassium Level 3.4 mmol/L (3.5-5.1) Chloride Level 107 mmol/L (98-107) Carbon Dioxide Level 21 mmol/L (21-32) Anion Gap 10 (6-14) Blood Urea Nitrogen 19 mg/dL (8-26) Creatinine 1.4 mg/dL (0.7-1.3) Estimated GFR (Cockcroft-Gault) 50.1 Glucose Level 114 mg/dL (70-99) Calcium Level 7.7 mg/dL (8.5-10.1) Microbiology 05/26/17 Blood Culture - Preliminary, Resulted NO GROWTH AFTER 1 DAY Medications Current Medications Iohexol (Omnipaque 300 Mg/ml) 75 ml 1X ONCE IV ; Start 05/25/17 at 18:45; Stop 05/25/17 at 18:48; Status DC Info (Do NOT chart on this entry -- for MONITORING) 1 each PRN DAILY PRN MC SEE COMMENTS; Start 05/25/17 at 19:00; Stop 05/27/17 at 18:59; Status DC Ondansetron HCl (Zofran) 4 mg PRN Q8HRS PRN IV NAUSEA/VOMITING; Start 05/25/17 at 21:45; Stop 05/26/17 at 21:44; Status DC Morphine Sulfate 2 mg PRN Q2HR PRN IV SEVERE PAIN Last administered on 13:18; Start 05/25/17 at 21:45; Stop 05/26/17 at 21:44; Status DC Acetaminophen (Tylenol) 650 mg PRN Q4HRS PRN PO FEVER; Start 05/25/17 at 21:45 ; Stop 05/26/17 at 21:44; Status DC Albuterol/ Ipratropium (Duoneb) 3 ml RTQID NEB Last administered on 05/26/17 19:48; Start 05/26/17 at 08:00; Stop 05/27/17 at 07:59; Status DC Ceftriaxone Sodium 50 ml @ 100 mls/hr 1X ONCE IV Last administered on 23:07; Start 05/25/17 at 22:00; Stop 05/25/17 at 22:29; Status DC Azithromycin 250 ml @ 250 mls/hr 1X ONCE IV Last administered on 05/26/17 01 :29; Start 05/25/17 at 22:00; Stop 05/25/17 at 22:59; Status DC Allopurinol (Zyloprim) 300 mg DAILY PO Last administered on 05/28/17 07:39; Start 05/26/17 at 11:00 Warfarin Sodium (Coumadin Per Pharmacy) 1 each PRN DAILY PRN MC SEE COMMENTS Last administered on 05/27/17 17:19; Start 05/26/17 at 10:45 Potassium Chloride (Klor-Con) 40 meq 1X ONCE PO Last administered on 12:08; Start 05/26/17 at 11:00; Stop 05/26/17 at 11:01; Status DC Linezolid 300 ml @ 300 mls/hr Q12HR IV Last administered on 05/27/17 21:07; Start 05/26/17 at 13:30; Stop 05/28/17 at 08:56; Status DC Piperacillin Sod/ Tazobactam Sod 3.375 gm/Sodium Chloride 50 ml @ 100 mls/hr Q6HRS IV Last administered on 05/28/17 05:23; Start 05/26/17 at 13:00; Stop 05/28/17 at 08:56; Status DC Potassium Chloride (Klor-Con) 40 meq 1X ONCE PO Last administered on 09:56; Start 05/27/17 at 08:30; Stop 05/27/17 at 08:31; Status DC Iron Sucrose 500 mg/Sodium Chloride 275 ml @ 78.571 mls/ hr 1X ONCE IV Last administered on 05/27/17 11:30; Start 05/27/17 at 09:45; Stop 05/27/17 at 13:14 ; Status DC Cyanocobalamin (Vitamin B-12) 1,000 mcg ONCE STAT IM Last administered on 05/27 09:57; Start 05/27/17 at 09:34; Stop 05/27/17 at 09:39; Status DC Tramadol HCl (Ultram) 50 mg PRN Q6HRS PRN PO PAIN; Start 05/27/17 at 10:45 Oxycodone/ Acetaminophen (Percocet 5/325) 1 tab PRN Q4HRS PRN PO PAIN Last administered on 05/28/17 07:40; Start 05/27/17 at 12:00 Warfarin Sodium (Coumadin) 1 mg 1X WARF ONCE PO Last administered on 18:08; Start 05/27/17 at 17:30; Stop 05/27/17 at 17:31; Status DC Potassium Chloride (Klor-Con) 40 meq 1X ONCE PO Last administered on 09:08; Start 05/28/17 at 08:30; Stop 05/28/17 at 08:31; Status DC Amoxicillin/ Clavulanate Potassium (Augmentin 875/ 125mg) 1 tab BID PO Last administered on 05/28/17 09:08; Start 05/28/17 at 09:00 Doxycycline Hyclate (Vibra-Tab) 100 mg BID PO Last administered on 05/28/17 09 :08; Start 05/28/17 at 09:00 Active Scripts Active Reported Lisinopril 10 Mg Tablet 1 Tab PO DAILY [coumadin] Allopurinol 300 Mg Tablet 1 Tab PO DAILY Vitals/I & O Vital Sign - Last 24 Hours 05/27/17 05/27/17 05/27/17 05/27/17 10:55 12:17 18:08 19:32 Temp 98.6 98.5 98.6 98.5 Pulse 63 56 Resp 20 17 B/P (MAP) 142/66 (91) 131/61 (84) Pulse Ox 98 98 98 100 O2 Delivery Room Air Room Air Room Air Room Air 05/27/17 05/27/17 05/28/17 05/28/17 20:00 23:54 00:08 03:36 Temp 98.2 98.0 98.2 98.0 Pulse 52 56 Resp 20 20 B/P (MAP) 166/72 (103) 126/57 (80) Pulse Ox 100 99 O2 Delivery Room Air Room Air Room Air Room Air 05/28/17 05/28/17 05/28/17 05/28/17 07:33 07:40 08:00 08:40 Temp 97.9 97.9 Pulse 56 Resp 20 B/P (MAP) 151/58 (89) Pulse Ox 100 99 99 O2 Delivery Room Air Room Air Room Air Room Air ALEJANDRO BUNN III DO May 28, 2017 09:43
--- NOTE | 2017-05-28 11:33 | PDOC ---
PULMONARY PROGRESS NOTES Subjective no soa Vitals Vital Signs Date Time Temp Pulse Resp B/P (MAP) Pulse Ox O2 Delivery O2 Flow Rate FiO2 05/28/17 08:40 99 Room Air 05/28/17 07:33 97.9 56 20 151/58 (89) 97.9 General: Alert, No acute distress Lungs: Clear Cardiovascular: S1 Abdomen: Soft Neuro Exam: Alert Extremities: Other (right BKA, left wounds) Skin: Warm Labs Laboratory Tests Test 05/26/17 11:39 05/26/17 17:04 05/26/17 20:51 05/27/17 03:30 Glucose (Fingerstick) 166 mg/dL (70-99) 168 mg/dL (70-99) 170 mg/dL (70-99) White Blood Count 17.1 x10^3/uL (4.0-11.0) Red Blood Count 3.00 x10^6/uL (4.30-5.70) Hemoglobin 8.1 g/dL (13.0-17.5) Hematocrit 25.8 % (39.0-53.0) Mean Corpuscular Volume 86 fL (79-100) Mean Corpuscular Hemoglobin 27 pg (25-35) Mean Corpuscular Hemoglobin Concent 31 g/dL (31-37) Red Cell Distribution Width 19.2 % (11.5-14.5) Platelet Count 178 x10^3/uL (140-400) Neutrophils (%) (Auto) 91 % (31-73) Lymphocytes (%) (Auto) 4 % (24-48) Monocytes (%) (Auto) 3 % (0-9) Eosinophils (%) (Auto) 1 % (0-3) Basophils (%) (Auto) 0 % (0-3) Neutrophils # (Auto) 15.6 x10^3uL (1.8-7.7) Lymphocytes # (Auto) 0.7 x10^3/uL (1.0-4.8) Monocytes # (Auto) 0.5 x10^3/uL (0.0-1.1) Eosinophils # (Auto) 0.2 x10^3/uL (0.0-0.7) Basophils # (Auto) 0.0 x10^3/uL (0.0-0.2) Reticulocyte Count (auto) 1.0 % (0.5-2.5) Prothrombin Time 31.0 SEC (11.7-14.0) Prothromb Time International Ratio 3.2 (0.8-1.1) Sodium Level 137 mmol/L (136-145) Potassium Level 3.3 mmol/L (3.5-5.1) Chloride Level 106 mmol/L (98-107) Carbon Dioxide Level 20 mmol/L (21-32) Anion Gap 11 (6-14) Blood Urea Nitrogen 28 mg/dL (8-26) Creatinine 1.6 mg/dL (0.7-1.3) Estimated GFR (Cockcroft-Gault) 42.9 Glucose Level 148 mg/dL (70-99) Calcium Level 7.5 mg/dL (8.5-10.1) Iron Level 10 ug/dL (65-175) Total Iron Binding Capacity 125 ug/dL (250-450) Iron Saturation 8 % (15-34) Ferritin 459 ng/mL (26-388) Troponin I Quantitative < 0.017 ng/mL (0.000-0.055) Vitamin B12 Level 353 pg/mL (247-911) Serum Folate 4.48 ng/ml (3.2-20.0) Test 05/27/17 07:22 05/27/17 11:21 05/27/17 17:04 05/27/17 21:40 Glucose (Fingerstick) 123 mg/dL (70-99) 199 mg/dL (70-99) 116 mg/dL (70-99) 157 mg/dL (70-99) Test 05/28/17 03:35 White Blood Count 14.2 x10^3/uL (4.0-11.0) Red Blood Count 3.03 x10^6/uL (4.30-5.70) Hemoglobin 8.3 g/dL (13.0-17.5) Hematocrit 26.1 % (39.0-53.0) Mean Corpuscular Volume 86 fL (79-100) Mean Corpuscular Hemoglobin 28 pg (25-35) Mean Corpuscular Hemoglobin Concent 32 g/dL (31-37) Red Cell Distribution Width 19.3 % (11.5-14.5) Platelet Count 180 x10^3/uL (140-400) Neutrophils (%) (Auto) 90 % (31-73) Lymphocytes (%) (Auto) 5 % (24-48) Monocytes (%) (Auto) 3 % (0-9) Eosinophils (%) (Auto) 2 % (0-3) Basophils (%) (Auto) 1 % (0-3) Neutrophils # (Auto) 12.8 x10^3uL (1.8-7.7) Lymphocytes # (Auto) 0.6 x10^3/uL (1.0-4.8) Monocytes # (Auto) 0.4 x10^3/uL (0.0-1.1) Eosinophils # (Auto) 0.3 x10^3/uL (0.0-0.7) Basophils # (Auto) 0.1 x10^3/uL (0.0-0.2) Sodium Level 138 mmol/L (136-145) Potassium Level 3.4 mmol/L (3.5-5.1) Chloride Level 107 mmol/L (98-107) Carbon Dioxide Level 21 mmol/L (21-32) Anion Gap 10 (6-14) Blood Urea Nitrogen 19 mg/dL (8-26) Creatinine 1.4 mg/dL (0.7-1.3) Estimated GFR (Cockcroft-Gault) 50.1 Glucose Level 114 mg/dL (70-99) Calcium Level 7.7 mg/dL (8.5-10.1) Laboratory Tests Test 05/27/17 17:04 05/27/17 21:40 05/28/17 03:35 Glucose (Fingerstick) 116 mg/dL (70-99) 157 mg/dL (70-99) White Blood Count 14.2 x10^3/uL (4.0-11.0) Red Blood Count 3.03 x10^6/uL (4.30-5.70) Hemoglobin 8.3 g/dL (13.0-17.5) Hematocrit 26.1 % (39.0-53.0) Mean Corpuscular Volume 86 fL (79-100) Mean Corpuscular Hemoglobin 28 pg (25-35) Mean Corpuscular Hemoglobin Concent 32 g/dL (31-37) Red Cell Distribution Width 19.3 % (11.5-14.5) Platelet Count 180 x10^3/uL (140-400) Neutrophils (%) (Auto) 90 % (31-73) Lymphocytes (%) (Auto) 5 % (24-48) Monocytes (%) (Auto) 3 % (0-9) Eosinophils (%) (Auto) 2 % (0-3) Basophils (%) (Auto) 1 % (0-3) Neutrophils # (Auto) 12.8 x10^3uL (1.8-7.7) Lymphocytes # (Auto) 0.6 x10^3/uL (1.0-4.8) Monocytes # (Auto) 0.4 x10^3/uL (0.0-1.1) Eosinophils # (Auto) 0.3 x10^3/uL (0.0-0.7) Basophils # (Auto) 0.1 x10^3/uL (0.0-0.2) Sodium Level 138 mmol/L (136-145) Potassium Level 3.4 mmol/L (3.5-5.1) Chloride Level 107 mmol/L (98-107) Carbon Dioxide Level 21 mmol/L (21-32) Anion Gap 10 (6-14) Blood Urea Nitrogen 19 mg/dL (8-26) Creatinine 1.4 mg/dL (0.7-1.3) Estimated GFR (Cockcroft-Gault) 50.1 Glucose Level 114 mg/dL (70-99) Calcium Level 7.7 mg/dL (8.5-10.1) Medications Active Scripts Medications Dose Route/Sig Max Daily Dose Days Date Category Lisinopril 10 Mg Tablet 1 Tab PO DAILY 05/26/17 Reported [coumadin] 05/26/17 Reported Allopurinol 300 Mg Tablet 1 Tab PO DAILY 05/26/17 Reported Impression . 1. Dyspnea, suspect secondary to infection. RESOLVED. His chest x-ray is clear. VQ scan, no evidence of pulmonary embolism. Doubt the dyspnea is related to pulmonary pathology. 2. Leukocytosis per Infectious Disease service.improving 3. Left lower extremity wound. 4. PENICILLIN ALLERGY. 5. Chronic kidney disease. Plan . Pulmonary status is compensated. Continue current empiric antibiotics per ID. No further pulmonary workup required. monitor wbc count PT KRYSTAL KOVACS MD May 28, 2017 11:33
[2017-05-28 11:58] VITALS: BP 141/41
--- NOTE | 2017-05-28 12:05 | PDOC ---
Renal-Progress Notes Subjective Notes Notes NONE History of Present Illness Hx of present illness NO CHANGE Vitals Vitals Vital Signs Date Time Temp Pulse Resp B/P (MAP) Pulse Ox O2 Delivery O2 Flow Rate FiO2 05/28/17 11:58 97.7 58 18 141/41 (74) 100 Room Air 97.7 Weight Weight [ ] I.O. Intake and Output Intake and Output 05/29/17 07:00 Intake Total 220 ml Balance 220 ml Intake Oral 220 ml # Bowel Movements 1 Labs Labs Laboratory Tests Test 05/27/17 17:04 05/27/17 21:40 05/28/17 03:35 05/28/17 11:44 Glucose (Fingerstick) 116 mg/dL (70-99) 157 mg/dL (70-99) 121 mg/dL (70-99) White Blood Count 14.2 x10^3/uL (4.0-11.0) Red Blood Count 3.03 x10^6/uL (4.30-5.70) Hemoglobin 8.3 g/dL (13.0-17.5) Hematocrit 26.1 % (39.0-53.0) Mean Corpuscular Volume 86 fL (79-100) Mean Corpuscular Hemoglobin 28 pg (25-35) Mean Corpuscular Hemoglobin Concent 32 g/dL (31-37) Red Cell Distribution Width 19.3 % (11.5-14.5) Platelet Count 180 x10^3/uL (140-400) Neutrophils (%) (Auto) 90 % (31-73) Lymphocytes (%) (Auto) 5 % (24-48) Monocytes (%) (Auto) 3 % (0-9) Eosinophils (%) (Auto) 2 % (0-3) Basophils (%) (Auto) 1 % (0-3) Neutrophils # (Auto) 12.8 x10^3uL (1.8-7.7) Lymphocytes # (Auto) 0.6 x10^3/uL (1.0-4.8) Monocytes # (Auto) 0.4 x10^3/uL (0.0-1.1) Eosinophils # (Auto) 0.3 x10^3/uL (0.0-0.7) Basophils # (Auto) 0.1 x10^3/uL (0.0-0.2) Sodium Level 138 mmol/L (136-145) Potassium Level 3.4 mmol/L (3.5-5.1) Chloride Level 107 mmol/L (98-107) Carbon Dioxide Level 21 mmol/L (21-32) Anion Gap 10 (6-14) Blood Urea Nitrogen 19 mg/dL (8-26) Creatinine 1.4 mg/dL (0.7-1.3) Estimated GFR (Cockcroft-Gault) 50.1 Glucose Level 114 mg/dL (70-99) Calcium Level 7.7 mg/dL (8.5-10.1) Micro Micro Microbiology 05/26/17 Blood Culture - Preliminary, Resulted NO GROWTH AFTER 1 DAY Review of Systems Constitutional: yes: weakness, alert, oriented Ears/Nose/Throat: Yes: no symptom reported Eyes: Yes: no symptom reported Pulmonary: Yes no symptom reported Cardiovascular: Yes no symptom reported Gastrointestional: Yes: no symptom reported Genitourinary: Yes: no symptom reported Musculoskeletal: Yes: muscle stiffness Skin: Yes no symptom reported Endocrine: Yes: no symptom reported Physical Exam General Appearance: no apparent distress Skin: warm Respiratory: bilateral CTA Heart: S1S2 Abdomen: soft, bowel sounds present Genitourinary: bladder flat Extremities: pulses present Neurology: alert, oriented Assessment Assessment IMP CKD STAGE 3 - CR STABLE LEUCOCYTOSIS L LE WOUND ANEMIA LOW K IRON DEFICIENCY DM II HTN PLAN CONT IVF'S CONT ANTIBIOTICS REPLACE K ON IV IRON ARLEN LIMON MD May 28, 2017 12:05
[2017-05-28] MEDS: PANTOPRAZOLE 40 MG TABLET.DR. PO SCH (14:41)
[2017-05-28] MEDS ORDERED: CALCIUM CARBONATE 500 MG TAB.CHEW PO PRN (14:45)
[2017-05-28 15:59] VITALS: BP 182/72
--- NOTE | 2017-05-28 16:24 | PDOC ---
PROGRESS NOTES Subjective Subjective c/c - f/u of Leukocytosis ROS - no CP Objective Objective Vital Signs Date Time Temp Pulse Resp B/P (MAP) Pulse Ox O2 Delivery O2 Flow Rate FiO2 05/28/17 11:58 97.7 58 18 141/41 (74) 100 Room Air 97.7 Intake and Output 05/29/17 07:00 Intake Total 220 ml Balance 220 ml Intake Oral 220 ml # Bowel Movements 1 Physical Exam General: Alert, Oriented X3, No acute distress Neuro: Normal speech Psych/Mental Status: Mental status NL Assessment Assessment Problems Medical Problems: (1) Acute renal failure Status: Acute (2) Anemia Status: Acute (3) Dyspnea Status: Acute (4) Leukocytosis Status: Acute IMPRESSION AND PLAN: 1. Leukocytosis. This is a reactive leukocytosis and I do not suspect a primary bone marrow disorder. His WBC count on 04/12/2017 was 22.3 and on 04/22/2017, it normalized to 8.4. On 04/29/2017, it remained normal at 5.8. However, on 05/25/2017, it got worse at 20.8 and on 05/26/2017, it is worse again at 33.0. This is consistent with a reactive leukocytosis. This is not consistent with a primary bone marrow disorder. He does have evidence of left leg wounds status post skin grafting. There are no obvious signs of infection; however, Infectious Disease has been consulted for further recommendations. The patient did receive antibiotics. I would continue to monitor WBC count. I would expect the WBC count to improve. A bone marrow biopsy would not be diagnostic at this time. WBC better at 17.1 on 05/27/17, 14.2 on 05/28/17. 2. Anemia. He has multiple comorbidities and I suspect he has anemia due to chronic disease. He also had iron deficiency and low B12. Hb 8.3 3. Chronic kidney disease. 4. Left leg wound, status post skin grafting. 5. Iron def likely from blood loss from wound/surgery - s/p venofer 500 mg x 1 on 05/27/17 6. B12 def - B12 low normal at 353 on 05/26/17. Ordered B12 1000mcg IM x 1 Comment Review of Relevant I have reviewed the following items nestor (where applicable) has been applied. Labs Laboratory Tests Test 05/26/17 17:04 05/26/17 20:51 05/27/17 03:30 05/27/17 07:22 Glucose (Fingerstick) 168 mg/dL (70-99) 170 mg/dL (70-99) 123 mg/dL (70-99) White Blood Count 17.1 x10^3/uL (4.0-11.0) Red Blood Count 3.00 x10^6/uL (4.30-5.70) Hemoglobin 8.1 g/dL (13.0-17.5) Hematocrit 25.8 % (39.0-53.0) Mean Corpuscular Volume 86 fL (79-100) Mean Corpuscular Hemoglobin 27 pg (25-35) Mean Corpuscular Hemoglobin Concent 31 g/dL (31-37) Red Cell Distribution Width 19.2 % (11.5-14.5) Platelet Count 178 x10^3/uL (140-400) Neutrophils (%) (Auto) 91 % (31-73) Lymphocytes (%) (Auto) 4 % (24-48) Monocytes (%) (Auto) 3 % (0-9) Eosinophils (%) (Auto) 1 % (0-3) Basophils (%) (Auto) 0 % (0-3) Neutrophils # (Auto) 15.6 x10^3uL (1.8-7.7) Lymphocytes # (Auto) 0.7 x10^3/uL (1.0-4.8) Monocytes # (Auto) 0.5 x10^3/uL (0.0-1.1) Eosinophils # (Auto) 0.2 x10^3/uL (0.0-0.7) Basophils # (Auto) 0.0 x10^3/uL (0.0-0.2) Reticulocyte Count (auto) 1.0 % (0.5-2.5) Prothrombin Time 31.0 SEC (11.7-14.0) Prothromb Time International Ratio 3.2 (0.8-1.1) Sodium Level 137 mmol/L (136-145) Potassium Level 3.3 mmol/L (3.5-5.1) Chloride Level 106 mmol/L (98-107) Carbon Dioxide Level 20 mmol/L (21-32) Anion Gap 11 (6-14) Blood Urea Nitrogen 28 mg/dL (8-26) Creatinine 1.6 mg/dL (0.7-1.3) Estimated GFR (Cockcroft-Gault) 42.9 Glucose Level 148 mg/dL (70-99) Calcium Level 7.5 mg/dL (8.5-10.1) Iron Level 10 ug/dL (65-175) Total Iron Binding Capacity 125 ug/dL (250-450) Iron Saturation 8 % (15-34) Ferritin 459 ng/mL (26-388) Troponin I Quantitative < 0.017 ng/mL (0.000-0.055) Vitamin B12 Level 353 pg/mL (247-911) Serum Folate 4.48 ng/ml (3.2-20.0) Test 05/27/17 11:21 05/27/17 17:04 05/27/17 21:40 05/28/17 03:35 Glucose (Fingerstick) 199 mg/dL (70-99) 116 mg/dL (70-99) 157 mg/dL (70-99) White Blood Count 14.2 x10^3/uL (4.0-11.0) Red Blood Count 3.03 x10^6/uL (4.30-5.70) Hemoglobin 8.3 g/dL (13.0-17.5) Hematocrit 26.1 % (39.0-53.0) Mean Corpuscular Volume 86 fL (79-100) Mean Corpuscular Hemoglobin 28 pg (25-35) Mean Corpuscular Hemoglobin Concent 32 g/dL (31-37) Red Cell Distribution Width 19.3 % (11.5-14.5) Platelet Count 180 x10^3/uL (140-400) Neutrophils (%) (Auto) 90 % (31-73) Lymphocytes (%) (Auto) 5 % (24-48) Monocytes (%) (Auto) 3 % (0-9) Eosinophils (%) (Auto) 2 % (0-3) Basophils (%) (Auto) 1 % (0-3) Neutrophils # (Auto) 12.8 x10^3uL (1.8-7.7) Lymphocytes # (Auto) 0.6 x10^3/uL (1.0-4.8) Monocytes # (Auto) 0.4 x10^3/uL (0.0-1.1) Eosinophils # (Auto) 0.3 x10^3/uL (0.0-0.7) Basophils # (Auto) 0.1 x10^3/uL (0.0-0.2) Sodium Level 138 mmol/L (136-145) Potassium Level 3.4 mmol/L (3.5-5.1) Chloride Level 107 mmol/L (98-107) Carbon Dioxide Level 21 mmol/L (21-32) Anion Gap 10 (6-14) Blood Urea Nitrogen 19 mg/dL (8-26) Creatinine 1.4 mg/dL (0.7-1.3) Estimated GFR (Cockcroft-Gault) 50.1 Glucose Level 114 mg/dL (70-99) Calcium Level 7.7 mg/dL (8.5-10.1) Test 05/28/17 11:44 Glucose (Fingerstick) 121 mg/dL (70-99) Laboratory Tests Test 05/27/17 17:04 05/27/17 21:40 05/28/17 03:35 05/28/17 11:44 Glucose (Fingerstick) 116 mg/dL (70-99) 157 mg/dL (70-99) 121 mg/dL (70-99) White Blood Count 14.2 x10^3/uL (4.0-11.0) Red Blood Count 3.03 x10^6/uL (4.30-5.70) Hemoglobin 8.3 g/dL (13.0-17.5) Hematocrit 26.1 % (39.0-53.0) Mean Corpuscular Volume 86 fL (79-100) Mean Corpuscular Hemoglobin 28 pg (25-35) Mean Corpuscular Hemoglobin Concent 32 g/dL (31-37) Red Cell Distribution Width 19.3 % (11.5-14.5) Platelet Count 180 x10^3/uL (140-400) Neutrophils (%) (Auto) 90 % (31-73) Lymphocytes (%) (Auto) 5 % (24-48) Monocytes (%) (Auto) 3 % (0-9) Eosinophils (%) (Auto) 2 % (0-3) Basophils (%) (Auto) 1 % (0-3) Neutrophils # (Auto) 12.8 x10^3uL (1.8-7.7) Lymphocytes # (Auto) 0.6 x10^3/uL (1.0-4.8) Monocytes # (Auto) 0.4 x10^3/uL (0.0-1.1) Eosinophils # (Auto) 0.3 x10^3/uL (0.0-0.7) Basophils # (Auto) 0.1 x10^3/uL (0.0-0.2) Sodium Level 138 mmol/L (136-145) Potassium Level 3.4 mmol/L (3.5-5.1) Chloride Level 107 mmol/L (98-107) Carbon Dioxide Level 21 mmol/L (21-32) Anion Gap 10 (6-14) Blood Urea Nitrogen 19 mg/dL (8-26) Creatinine 1.4 mg/dL (0.7-1.3) Estimated GFR (Cockcroft-Gault) 50.1 Glucose Level 114 mg/dL (70-99) Calcium Level 7.7 mg/dL (8.5-10.1) Microbiology 05/26/17 Blood Culture - Preliminary, Resulted NO GROWTH AFTER 2 DAYS Medications Current Medications Iohexol (Omnipaque 300 Mg/ml) 75 ml 1X ONCE IV ; Start 05/25/17 at 18:45; Stop 05/25/17 at 18:48; Status DC Info (Do NOT chart on this entry -- for MONITORING) 1 each PRN DAILY PRN MC SEE COMMENTS; Start 05/25/17 at 19:00; Stop 05/27/17 at 18:59; Status DC Ondansetron HCl (Zofran) 4 mg PRN Q8HRS PRN IV NAUSEA/VOMITING; Start 05/25/17 at 21:45; Stop 05/26/17 at 21:44; Status DC Morphine Sulfate 2 mg PRN Q2HR PRN IV SEVERE PAIN Last administered on t 13:18; Start 05/25/17 at 21:45; Stop 05/26/17 at 21:44; Status DC Acetaminophen (Tylenol) 650 mg PRN Q4HRS PRN PO FEVER; Start 05/25/17 at 21:45 ; Stop 05/26/17 at 21:44; Status DC Albuterol/ Ipratropium (Duoneb) 3 ml RTQID NEB Last administered on 05/26/17 19:48; Start 05/26/17 at 08:00; Stop 05/27/17 at 07:59; Status DC Ceftriaxone Sodium 50 ml @ 100 mls/hr 1X ONCE IV Last administered on 23:07; Start 05/25/17 at 22:00; Stop 05/25/17 at 22:29; Status DC Azithromycin 250 ml @ 250 mls/hr 1X ONCE IV Last administered on 05/26/17 01 :29; Start 05/25/17 at 22:00; Stop 05/25/17 at 22:59; Status DC Allopurinol (Zyloprim) 300 mg DAILY PO Last administered on 05/28/17 07:39; Start 05/26/17 at 11:00 Warfarin Sodium (Coumadin Per Pharmacy) 1 each PRN DAILY PRN MC SEE COMMENTS Last administered on 05/28/17 11:55; Start 05/26/17 at 10:45 Potassium Chloride (Klor-Con) 40 meq 1X ONCE PO Last administered on 12:08; Start 05/26/17 at 11:00; Stop 05/26/17 at 11:01; Status DC Linezolid 300 ml @ 300 mls/hr Q12HR IV Last administered on 05/27/17 21:07; Start 05/26/17 at 13:30; Stop 05/28/17 at 08:56; Status DC Piperacillin Sod/ Tazobactam Sod 3.375 gm/Sodium Chloride 50 ml @ 100 mls/hr Q6HRS IV Last administered on 05/28/17 05:23; Start 05/26/17 at 13:00; Stop 05/28/17 at 08:56; Status DC Potassium Chloride (Klor-Con) 40 meq 1X ONCE PO Last administered on 09:56; Start 05/27/17 at 08:30; Stop 05/27/17 at 08:31; Status DC Iron Sucrose 500 mg/Sodium Chloride 275 ml @ 78.571 mls/ hr 1X ONCE IV Last administered on 05/27/17 11:30; Start 05/27/17 at 09:45; Stop 05/27/17 at 13:14 ; Status DC Cyanocobalamin (Vitamin B-12) 1,000 mcg ONCE STAT IM Last administered on 05/27 09:57; Start 05/27/17 at 09:34; Stop 05/27/17 at 09:39; Status DC Tramadol HCl (Ultram) 50 mg PRN Q6HRS PRN PO PAIN; Start 05/27/17 at 10:45 Oxycodone/ Acetaminophen (Percocet 5/325) 1 tab PRN Q4HRS PRN PO PAIN Last administered on 05/28/17 07:40; Start 05/27/17 at 12:00 Warfarin Sodium (Coumadin) 1 mg 1X WARF ONCE PO Last administered on 18:08; Start 05/27/17 at 17:30; Stop 05/27/17 at 17:31; Status DC Potassium Chloride (Klor-Con) 40 meq 1X ONCE PO Last administered on 09:08; Start 05/28/17 at 08:30; Stop 05/28/17 at 08:31; Status DC Amoxicillin/ Clavulanate Potassium (Augmentin 875/ 125mg) 1 tab BID PO Last administered on 05/28/17 09:08; Start 05/28/17 at 09:00 Doxycycline Hyclate (Vibra-Tab) 100 mg BID PO Last administered on 05/28/17 09 :08; Start 05/28/17 at 09:00 Warfarin Sodium (Coumadin - No Dose Today) 1 each 1X WARF ONCE MC ; Start 05/28 at 16:00; Stop 05/28/17 at 16:01; Status DC Pantoprazole Sodium (Protonix) 40 mg DAILYAC PO Last administered on 05/28/17 14:41; Start 05/28/17 at 15:00 Calcium Carbonate/ Glycine (Tums) 500 mg PRN AFTMEALHC PRN PO INDIGESTION Last administered on 05/28/17 14:41; Start 05/28/17 at 14:45 Active Scripts Active Reported Lisinopril 10 Mg Tablet 1 Tab PO DAILY [coumadin] Allopurinol 300 Mg Tablet 1 Tab PO DAILY Vitals/I & O Vital Sign - Last 24 Hours 05/27/17 05/27/17 05/27/17 05/27/17 18:08 19:32 20:00 23:54 Temp 98.5 98.2 98.5 98.2 Pulse 56 52 Resp 17 20 B/P (MAP) 131/61 (84) 166/72 (103) Pulse Ox 98 100 100 O2 Delivery Room Air Room Air Room Air Room Air 05/28/17 05/28/17 05/28/17 05/28/17 00:08 03:36 07:33 07:40 Temp 98.0 97.9 98.0 97.9 Pulse 56 56 Resp 20 20 B/P (MAP) 126/57 (80) 151/58 (89) Pulse Ox 99 100 99 O2 Delivery Room Air Room Air Room Air Room Air 05/28/17 05/28/17 05/28/17 08:00 08:40 11:58 Temp 97.7 97.7 Pulse 58 Resp 18 B/P (MAP) 141/41 (74) Pulse Ox 99 100 O2 Delivery Room Air Room Air Room Air Intake and Output 05/28/17 05/28/17 05/29/17 15:00 23:00 07:00 Intake Total 220 ml Balance 220 ml OLAYIKNA STAFFORD MD May 28, 2017 16:24
[2017-05-28 19:00] VITALS: BP 181/90
[2017-05-28] MEDS ORDERED: HYDR25TA9 PO (20:36)
[2017-05-28] MEDS ORDERED: LOPE2CAP88 PO (20:55)
[2017-05-28] MEDS ORDERED: hydrALAZINE 20 MG/ML VIAL. IVP PRN (21:00)
[2017-05-28] MEDS: LISINOPRIL 10 MG TABLET PO SCH (21:18)
[2017-05-28] MEDS: hydroCHLOROthiazide 25 MG TABLET PO SCH (21:18)
[2017-05-28] MEDS ORDERED: LOPERAMIDE 2 MG CAPSULE PO ONE (22:30)
[2017-05-28 23:29] VITALS: BP 151/61
[2017-05-29 03:00] VITALS: BP 192/74
[2017-05-29 06:21] VITALS: BP 177/71
[2017-05-29 06:32] LABS: BASO # 0.1 x10^3/uL (0.0-0.2); BASO % 1 % (0-3); EOS % 2 % (0-3); HEMATOCRIT 27.2 % (39.0-53.0); HEMOGLOBIN 8.6 g/dL (13.0-17.5); LYMPH # 0.7 x10^3/uL (1.0-4.8); LYMPH % 7 % (24-48); MEAN CORPUSCULAR HEMOGLOBIN 27 pg (25-35); MEAN CORPUSCULAR HGB CONC 32 g/dL (31-37); MEAN CORPUSCULAR VOLUME 86 fL (79-100); MONO % 4 % (0-9); NEUT % 86 % (31-73); PLATELET COUNT 198 x10^3/uL (140-400); RED BLOOD COUNT 3.16 x10^6/uL (4.30-5.70); RED CELL DISTRIBUTION WIDTH 19.2 % (11.5-14.5); WHITE BLOOD COUNT 10.2 x10^3/uL (4.0-11.0)
[2017-05-29 06:39] LABS: INR 2.4 (0.8-1.1); PROTHROMBIN TIME PATIENT 24.5 SEC (11.7-14.0)
[2017-05-29 06:43] LABS: CALCIUM 8.5 mg/dL (8.5-10.1); CREATININE 1.1 mg/dL (0.7-1.3); GFR 66.2; POTASSIUM 3.5 mmol/L (3.5-5.1)
[2017-05-29 07:35] VITALS: BP 160/74
[2017-05-29] MEDS: AMOXICILLIN/K CLAV 875/125MG TABLET. PO SCH (08:25)
[2017-05-29] MEDS: hydroCHLOROthiazide 25 MG TABLET PO SCH (08:25)
[2017-05-29] MEDS: ALLOPURINOL 300 MG TABLET. PO SCH (08:25)
[2017-05-29] MEDS: PANTOPRAZOLE 40 MG TABLET.DR. PO SCH (08:25)
[2017-05-29] MEDS: LISINOPRIL 10 MG TABLET PO SCH (08:26)
[2017-05-29] MEDS: DOXYCYCLINE HYCLATE 100 MG TABLET PO SCH (08:26)
[2017-05-29] MEDS ORDERED: hydroCHLOROthiazide 25 MG TABLET PO SCH (09:00)
[2017-05-29] MEDS ORDERED: LISINOPRIL 10 MG TABLET PO SCH (09:00)
--- NOTE | 2017-05-29 09:24 | PDOC ---
Infectious Disease Note Subjective Subjective Cont to improve. No chills/sweats Loose stool better Wound ok - still pain at times Eating ROS ROS GEN: Denies fevers, chills, sweats HEENT: Denies blurred vision, sore throat CV: Denies chest pain RESP: Denies shortness of air, cough GI: Denies n/v/d NEURO: Denies confusion, dizziness MSK: Denies weakness, joint pain/swelling Vital Sign Vital Signs Vital Signs Date Time Temp Pulse Resp B/P (MAP) Pulse Ox O2 Delivery O2 Flow Rate FiO2 05/29/17 08:26 68 160/74 05/29/17 08:05 Room Air 05/29/17 07:35 98.2 20 97 98.2 Physical Exam PHYSICAL EXAM GENERAL: NAD, Alert HEENT: PERRL, OC/OP -clear NECK: Supple, no JVD, no LN LUNGS: Clear HEART: S1S2, no gallop, no murmur ABD: Soft, NT, no organomegaly, no rebound, obese EXT: No edema, no cyanosis. Wound dressed [employer]: Alert, oriented x 3, no focal neurologic deficit SKIN: No rash IV: ok Labs Lab Laboratory Tests Test 05/28/17 11:44 05/29/17 05:30 05/29/17 08:02 Glucose (Fingerstick) 121 mg/dL (70-99) 92 mg/dL (70-99) White Blood Count 10.2 x10^3/uL (4.0-11.0) Red Blood Count 3.16 x10^6/uL (4.30-5.70) Hemoglobin 8.6 g/dL (13.0-17.5) Hematocrit 27.2 % (39.0-53.0) Mean Corpuscular Volume 86 fL (79-100) Mean Corpuscular Hemoglobin 27 pg (25-35) Mean Corpuscular Hemoglobin Concent 32 g/dL (31-37) Red Cell Distribution Width 19.2 % (11.5-14.5) Platelet Count 198 x10^3/uL (140-400) Neutrophils (%) (Auto) 86 % (31-73) Lymphocytes (%) (Auto) 7 % (24-48) Monocytes (%) (Auto) 4 % (0-9) Eosinophils (%) (Auto) 2 % (0-3) Basophils (%) (Auto) 1 % (0-3) Neutrophils # (Auto) 8.8 x10^3uL (1.8-7.7) Lymphocytes # (Auto) 0.7 x10^3/uL (1.0-4.8) Monocytes # (Auto) 0.4 x10^3/uL (0.0-1.1) Eosinophils # (Auto) 0.2 x10^3/uL (0.0-0.7) Basophils # (Auto) 0.1 x10^3/uL (0.0-0.2) Prothrombin Time 24.5 SEC (11.7-14.0) Prothromb Time International Ratio 2.4 (0.8-1.1) Sodium Level 140 mmol/L (136-145) Potassium Level 3.5 mmol/L (3.5-5.1) Chloride Level 108 mmol/L (98-107) Carbon Dioxide Level 20 mmol/L (21-32) Anion Gap 12 (6-14) Blood Urea Nitrogen 13 mg/dL (8-26) Creatinine 1.1 mg/dL (0.7-1.3) Estimated GFR (Cockcroft-Gault) 66.2 Glucose Level 99 mg/dL (70-99) Calcium Level 8.5 mg/dL (8.5-10.1) Magnesium Level 1.2 mg/dL (1.8-2.4) Objective Assessment Leukocytosis ? reactive ? viral. - better LLE wound PCN allergy - has tolerated Amox Hypotension CKD Plan Plan of Care Cont Augmentin/Doxy for 7 days Ok to d/c home from ID standpoint Can F/u ID office in one week [phone] Cont local wound care ID to sign off EVANGELINA KLEIN MD May 29, 2017 09:24
[2017-05-29] MEDS: oxyCODONE/APAP 5/325 1 TAB TABLET PO PRN (11:07)
[2017-05-29 11:12] VITALS: BP 179/69
--- NOTE | 2017-05-29 11:24 | PDOC ---
Renal-Progress Notes Subjective Notes Notes NONE History of Present Illness Hx of present illness STABLE Vitals Vitals Vital Signs Date Time Temp Pulse Resp B/P (MAP) Pulse Ox O2 Delivery O2 Flow Rate FiO2 05/29/17 11:12 98.2 81 19 179/69 (105) 96 Room Air 98.2 Weight Weight [ ] Labs Labs Laboratory Tests Test 05/28/17 11:44 05/29/17 05:30 05/29/17 08:02 Glucose (Fingerstick) 121 mg/dL (70-99) 92 mg/dL (70-99) White Blood Count 10.2 x10^3/uL (4.0-11.0) Red Blood Count 3.16 x10^6/uL (4.30-5.70) Hemoglobin 8.6 g/dL (13.0-17.5) Hematocrit 27.2 % (39.0-53.0) Mean Corpuscular Volume 86 fL (79-100) Mean Corpuscular Hemoglobin 27 pg (25-35) Mean Corpuscular Hemoglobin Concent 32 g/dL (31-37) Red Cell Distribution Width 19.2 % (11.5-14.5) Platelet Count 198 x10^3/uL (140-400) Neutrophils (%) (Auto) 86 % (31-73) Lymphocytes (%) (Auto) 7 % (24-48) Monocytes (%) (Auto) 4 % (0-9) Eosinophils (%) (Auto) 2 % (0-3) Basophils (%) (Auto) 1 % (0-3) Neutrophils # (Auto) 8.8 x10^3uL (1.8-7.7) Lymphocytes # (Auto) 0.7 x10^3/uL (1.0-4.8) Monocytes # (Auto) 0.4 x10^3/uL (0.0-1.1) Eosinophils # (Auto) 0.2 x10^3/uL (0.0-0.7) Basophils # (Auto) 0.1 x10^3/uL (0.0-0.2) Prothrombin Time 24.5 SEC (11.7-14.0) Prothromb Time International Ratio 2.4 (0.8-1.1) Sodium Level 140 mmol/L (136-145) Potassium Level 3.5 mmol/L (3.5-5.1) Chloride Level 108 mmol/L (98-107) Carbon Dioxide Level 20 mmol/L (21-32) Anion Gap 12 (6-14) Blood Urea Nitrogen 13 mg/dL (8-26) Creatinine 1.1 mg/dL (0.7-1.3) Estimated GFR (Cockcroft-Gault) 66.2 Glucose Level 99 mg/dL (70-99) Calcium Level 8.5 mg/dL (8.5-10.1) Magnesium Level 1.2 mg/dL (1.8-2.4) Micro Micro Microbiology 05/26/17 Blood Culture - Preliminary, Resulted NO GROWTH AFTER 2 DAYS Review of Systems Constitutional: yes: weakness, alert, oriented Ears/Nose/Throat: Yes: no symptom reported Eyes: Yes: no symptom reported Pulmonary: Yes no symptom reported Cardiovascular: Yes no symptom reported Gastrointestional: Yes: no symptom reported Genitourinary: Yes: no symptom reported Musculoskeletal: Yes: muscle stiffness Skin: Yes no symptom reported Endocrine: Yes: no symptom reported Physical Exam General Appearance: no apparent distress Skin: warm Respiratory: bilateral CTA Heart: S1S2 Abdomen: soft, bowel sounds present Genitourinary: bladder flat Extremities: pulses present Neurology: alert, oriented Assessment Assessment IMP CKD STAGE 3 - CR STABLE LEUCOCYTOSIS-RESOLVED L LE WOUND ANEMIA LOW K-CORRECTED IRON DEFICIENCY DM II HTN PLAN RENAL FXN STABLE WILL SIGN OFF PLEASE CALL IF NEEDED ARLEN LIMON MD May 29, 2017 11:24
[2017-05-29] MEDS ORDERED: LOPERAMIDE 2 MG CAPSULE PO PRN (11:30)
--- NOTE | 2017-05-29 12:08 | PDOC ---
PROGRESS NOTES Subjective Subjective HPI - f/u of Leukocytosis. ROS - no fever Objective Objective Vital Signs Date Time Temp Pulse Resp B/P (MAP) Pulse Ox O2 Delivery O2 Flow Rate FiO2 05/29/17 11:12 98.2 81 19 179/69 (105) 96 Room Air 98.2 Physical Exam General: Alert, Oriented X3, No acute distress Neuro: Normal speech Psych/Mental Status: Mental status NL Assessment Assessment Problems Medical Problems: (1) Acute renal failure Status: Acute (2) Anemia Status: Acute (3) Dyspnea Status: Acute (4) Leukocytosis Status: Acute IMPRESSION AND PLAN: 1. Leukocytosis. This is a reactive leukocytosis and I do not suspect a primary bone marrow disorder. His WBC count on 04/12/2017 was 22.3 and on 04/22/2017, it normalized to 8.4. On 04/29/2017, it remained normal at 5.8. However, on 05/25/2017, it got worse at 20.8 and on 05/26/2017, it is worse again at 33.0. This is consistent with a reactive leukocytosis. This is not consistent with a primary bone marrow disorder. He does have evidence of left leg wounds status post skin grafting. There are no obvious signs of infection; however, Infectious Disease has been consulted for further recommendations. The patient did receive antibiotics. I would continue to monitor WBC count. I would expect the WBC count to improve. A bone marrow biopsy would not be diagnostic at this time. WBC better at 17.1 on 05/27/17, 14.2 on 05/28/17. 10.2 on 05/29/17 2. Anemia. He has multiple comorbidities and I suspect he has anemia due to chronic disease. He also had iron deficiency and low B12. Hb 8.6 3. Chronic kidney disease. 4. Left leg wound, status post skin grafting. 5. Iron def likely from blood loss from wound/surgery - s/p venofer 500 mg x 1 on 05/27/17 6. B12 def - B12 low normal at 353 on 05/26/17. Ordered B12 1000mcg IM x 1 Comment Review of Relevant I have reviewed the following items nestor (where applicable) has been applied. Labs Laboratory Tests Test 05/27/17 17:04 05/27/17 21:40 05/28/17 03:35 05/28/17 11:44 Glucose (Fingerstick) 116 mg/dL (70-99) 157 mg/dL (70-99) 121 mg/dL (70-99) White Blood Count 14.2 x10^3/uL (4.0-11.0) Red Blood Count 3.03 x10^6/uL (4.30-5.70) Hemoglobin 8.3 g/dL (13.0-17.5) Hematocrit 26.1 % (39.0-53.0) Mean Corpuscular Volume 86 fL (79-100) Mean Corpuscular Hemoglobin 28 pg (25-35) Mean Corpuscular Hemoglobin Concent 32 g/dL (31-37) Red Cell Distribution Width 19.3 % (11.5-14.5) Platelet Count 180 x10^3/uL (140-400) Neutrophils (%) (Auto) 90 % (31-73) Lymphocytes (%) (Auto) 5 % (24-48) Monocytes (%) (Auto) 3 % (0-9) Eosinophils (%) (Auto) 2 % (0-3) Basophils (%) (Auto) 1 % (0-3) Neutrophils # (Auto) 12.8 x10^3uL (1.8-7.7) Lymphocytes # (Auto) 0.6 x10^3/uL (1.0-4.8) Monocytes # (Auto) 0.4 x10^3/uL (0.0-1.1) Eosinophils # (Auto) 0.3 x10^3/uL (0.0-0.7) Basophils # (Auto) 0.1 x10^3/uL (0.0-0.2) Sodium Level 138 mmol/L (136-145) Potassium Level 3.4 mmol/L (3.5-5.1) Chloride Level 107 mmol/L (98-107) Carbon Dioxide Level 21 mmol/L (21-32) Anion Gap 10 (6-14) Blood Urea Nitrogen 19 mg/dL (8-26) Creatinine 1.4 mg/dL (0.7-1.3) Estimated GFR (Cockcroft-Gault) 50.1 Glucose Level 114 mg/dL (70-99) Calcium Level 7.7 mg/dL (8.5-10.1) Test 05/29/17 05:30 05/29/17 08:02 05/29/17 11:32 White Blood Count 10.2 x10^3/uL (4.0-11.0) Red Blood Count 3.16 x10^6/uL (4.30-5.70) Hemoglobin 8.6 g/dL (13.0-17.5) Hematocrit 27.2 % (39.0-53.0) Mean Corpuscular Volume 86 fL (79-100) Mean Corpuscular Hemoglobin 27 pg (25-35) Mean Corpuscular Hemoglobin Concent 32 g/dL (31-37) Red Cell Distribution Width 19.2 % (11.5-14.5) Platelet Count 198 x10^3/uL (140-400) Neutrophils (%) (Auto) 86 % (31-73) Lymphocytes (%) (Auto) 7 % (24-48) Monocytes (%) (Auto) 4 % (0-9) Eosinophils (%) (Auto) 2 % (0-3) Basophils (%) (Auto) 1 % (0-3) Neutrophils # (Auto) 8.8 x10^3uL (1.8-7.7) Lymphocytes # (Auto) 0.7 x10^3/uL (1.0-4.8) Monocytes # (Auto) 0.4 x10^3/uL (0.0-1.1) Eosinophils # (Auto) 0.2 x10^3/uL (0.0-0.7) Basophils # (Auto) 0.1 x10^3/uL (0.0-0.2) Prothrombin Time 24.5 SEC (11.7-14.0) Prothromb Time International Ratio 2.4 (0.8-1.1) Sodium Level 140 mmol/L (136-145) Potassium Level 3.5 mmol/L (3.5-5.1) Chloride Level 108 mmol/L (98-107) Carbon Dioxide Level 20 mmol/L (21-32) Anion Gap 12 (6-14) Blood Urea Nitrogen 13 mg/dL (8-26) Creatinine 1.1 mg/dL (0.7-1.3) Estimated GFR (Cockcroft-Gault) 66.2 Glucose Level 99 mg/dL (70-99) Calcium Level 8.5 mg/dL (8.5-10.1) Magnesium Level 1.2 mg/dL (1.8-2.4) Glucose (Fingerstick) 92 mg/dL (70-99) 181 mg/dL (70-99) Laboratory Tests Test 05/29/17 05:30 05/29/17 08:02 05/29/17 11:32 White Blood Count 10.2 x10^3/uL (4.0-11.0) Red Blood Count 3.16 x10^6/uL (4.30-5.70) Hemoglobin 8.6 g/dL (13.0-17.5) Hematocrit 27.2 % (39.0-53.0) Mean Corpuscular Volume 86 fL (79-100) Mean Corpuscular Hemoglobin 27 pg (25-35) Mean Corpuscular Hemoglobin Concent 32 g/dL (31-37) Red Cell Distribution Width 19.2 % (11.5-14.5) Platelet Count 198 x10^3/uL (140-400) Neutrophils (%) (Auto) 86 % (31-73) Lymphocytes (%) (Auto) 7 % (24-48) Monocytes (%) (Auto) 4 % (0-9) Eosinophils (%) (Auto) 2 % (0-3) Basophils (%) (Auto) 1 % (0-3) Neutrophils # (Auto) 8.8 x10^3uL (1.8-7.7) Lymphocytes # (Auto) 0.7 x10^3/uL (1.0-4.8) Monocytes # (Auto) 0.4 x10^3/uL (0.0-1.1) Eosinophils # (Auto) 0.2 x10^3/uL (0.0-0.7) Basophils # (Auto) 0.1 x10^3/uL (0.0-0.2) Prothrombin Time 24.5 SEC (11.7-14.0) Prothromb Time International Ratio 2.4 (0.8-1.1) Sodium Level 140 mmol/L (136-145) Potassium Level 3.5 mmol/L (3.5-5.1) Chloride Level 108 mmol/L (98-107) Carbon Dioxide Level 20 mmol/L (21-32) Anion Gap 12 (6-14) Blood Urea Nitrogen 13 mg/dL (8-26) Creatinine 1.1 mg/dL (0.7-1.3) Estimated GFR (Cockcroft-Gault) 66.2 Glucose Level 99 mg/dL (70-99) Calcium Level 8.5 mg/dL (8.5-10.1) Magnesium Level 1.2 mg/dL (1.8-2.4) Glucose (Fingerstick) 92 mg/dL (70-99) 181 mg/dL (70-99) Microbiology 05/26/17 Blood Culture - Preliminary, Resulted NO GROWTH AFTER 2 DAYS Medications Current Medications Iohexol (Omnipaque 300 Mg/ml) 75 ml 1X ONCE IV ; Start 05/25/17 at 18:45; Stop 05/25/17 at 18:48; Status DC Info (Do NOT chart on this entry -- for MONITORING) 1 each PRN DAILY PRN MC SEE COMMENTS; Start 05/25/17 at 19:00; Stop 05/27/17 at 18:59; Status DC Ondansetron HCl (Zofran) 4 mg PRN Q8HRS PRN IV NAUSEA/VOMITING; Start 05/25/17 at 21:45; Stop 05/26/17 at 21:44; Status DC Morphine Sulfate 2 mg PRN Q2HR PRN IV SEVERE PAIN Last administered on 13:18; Start 05/25/17 at 21:45; Stop 05/26/17 at 21:44; Status DC Acetaminophen (Tylenol) 650 mg PRN Q4HRS PRN PO FEVER; Start 05/25/17 at 21:45 ; Stop 05/26/17 at 21:44; Status DC Albuterol/ Ipratropium (Duoneb) 3 ml RTQID NEB Last administered on 05/26/17 19:48; Start 05/26/17 at 08:00; Stop 05/27/17 at 07:59; Status DC Ceftriaxone Sodium 50 ml @ 100 mls/hr 1X ONCE IV Last administered on 23:07; Start 05/25/17 at 22:00; Stop 05/25/17 at 22:29; Status DC Azithromycin 250 ml @ 250 mls/hr 1X ONCE IV Last administered on 05/26/17 01 :29; Start 05/25/17 at 22:00; Stop 05/25/17 at 22:59; Status DC Allopurinol (Zyloprim) 300 mg DAILY PO Last administered on 05/29/17 08:25; Start 05/26/17 at 11:00 Warfarin Sodium (Coumadin Per Pharmacy) 1 each PRN DAILY PRN MC SEE COMMENTS Last administered on 05/29/17 11:48; Start 05/26/17 at 10:45 Potassium Chloride (Klor-Con) 40 meq 1X ONCE PO Last administered on 12:08; Start 05/26/17 at 11:00; Stop 05/26/17 at 11:01; Status DC Linezolid 300 ml @ 300 mls/hr Q12HR IV Last administered on 05/27/17 21:07; Start 05/26/17 at 13:30; Stop 05/28/17 at 08:56; Status DC Piperacillin Sod/ Tazobactam Sod 3.375 gm/Sodium Chloride 50 ml @ 100 mls/hr Q6HRS IV Last administered on 05/28/17 05:23; Start 05/26/17 at 13:00; Stop 05/28/17 at 08:56; Status DC Potassium Chloride (Klor-Con) 40 meq 1X ONCE PO Last administered on 09:56; Start 05/27/17 at 08:30; Stop 05/27/17 at 08:31; Status DC Iron Sucrose 500 mg/Sodium Chloride 275 ml @ 78.571 mls/ hr 1X ONCE IV Last administered on 05/27/17 11:30; Start 05/27/17 at 09:45; Stop 05/27/17 at 13:14 ; Status DC Cyanocobalamin (Vitamin B-12) 1,000 mcg ONCE STAT IM Last administered on 05/27 09:57; Start 05/27/17 at 09:34; Stop 05/27/17 at 09:39; Status DC Tramadol HCl (Ultram) 50 mg PRN Q6HRS PRN PO PAIN; Start 05/27/17 at 10:45 Oxycodone/ Acetaminophen (Percocet 5/325) 1 tab PRN Q4HRS PRN PO PAIN Last administered on 05/29/17 11:07; Start 05/27/17 at 12:00 Warfarin Sodium (Coumadin) 1 mg 1X WARF ONCE PO Last administered on 18:08; Start 05/27/17 at 17:30; Stop 05/27/17 at 17:31; Status DC Potassium Chloride (Klor-Con) 40 meq 1X ONCE PO Last administered on 09:08; Start 05/28/17 at 08:30; Stop 05/28/17 at 08:31; Status DC Amoxicillin/ Clavulanate Potassium (Augmentin 875/ 125mg) 1 tab BID PO Last administered on 05/29/17 08:25; Start 05/28/17 at 09:00 Doxycycline Hyclate (Vibra-Tab) 100 mg BID PO Last administered on 05/29/17 08 :26; Start 05/28/17 at 09:00 Warfarin Sodium (Coumadin - No Dose Today) 1 each 1X WARF ONCE MC ; Start 05/28 at 16:00; Stop 05/28/17 at 16:01; Status DC Pantoprazole Sodium (Protonix) 40 mg DAILYAC PO Last administered on 05/29/17 08:25; Start 05/28/17 at 15:00 Calcium Carbonate/ Glycine (Tums) 500 mg PRN AFTMEALHC PRN PO INDIGESTION Last administered on 05/28/17 14:41; Start 05/28/17 at 14:45 Hydrochlorothiazide (Hydrodiuril) 25 mg DAILY PO ; Start 05/29/17 at 09:00; Stop 05/29/17 at 09:00; Status DC Lisinopril (Prinivil) 10 mg DAILY PO ; Start 05/29/17 at 09:00; Stop 05/29/17 at 09:00; Status DC Hydralazine HCl (Apresoline) 10 mg PRN Q4HRS PRN IVP ELEVATED BP, SEE COMMENTS Last administered on 05/29/17 11:06; Start 05/28/17 at 21:00 Hydrochlorothiazide (Hydrodiuril) 25 mg DAILY PO Last administered on 08:25; Start 05/28/17 at 21:00 Lisinopril (Prinivil) 10 mg DAILY PO Last administered on 05/29/17 08:26; Start 05/28/17 at 21:00 Loperamide HCl (Imodium) 2 mg 1X ONCE PO Last administered on 05/28/17t 22:42 ; Start 05/28/17 at 22:30; Stop 05/28/17 at 22:31; Status DC Loperamide HCl (Imodium) 2 mg PRN Q15MIN PRN PO DIARRHEA; Start 05/29/17 at 11: 30 Warfarin Sodium (Coumadin) 2 mg 1X WARF ONCE PO ; Start 05/29/17 at 16:00; Stop 05/29/17 at 16:01 Active Scripts Active Reported Imodium A-D (Loperamide HCl) 2 Mg Capsule 2 Mg PO 1X Hydrochlorothiazide Tablet (Hydrochlorothiazide) 25 Mg Tablet 25 Mg PO DAILY Lisinopril 10 Mg Tablet 1 Tab PO DAILY [coumadin] Allopurinol 300 Mg Tablet 1 Tab PO DAILY Vitals/I & O Vital Sign - Last 24 Hours 05/28/17 05/28/17 05/28/17 05/28/17 15:59 19:00 20:00 20:31 Temp 97.5 98.0 97.5 98.0 Pulse 61 70 Resp 20 20 B/P (MAP) 182/72 (108) 181/90 (120) Pulse Ox 99 98 O2 Delivery Room Air Room Air Room Air Room Air 05/28/17 05/28/17 05/28/17 05/29/17 21:18 21:31 23:29 03:00 Temp 99.3 99.1 99.3 99.1 Pulse 70 52 54 Resp 20 20 B/P (MAP) 181/90 151/61 (91) 192/74 (113) Pulse Ox 97 97 O2 Delivery Room Air Room Air Room Air 05/29/17 05/29/17 05/29/17 05/29/17 06:21 07:35 08:05 08:26 Temp 98.2 98.2 Pulse 52 68 68 Resp 20 B/P (MAP) 177/71 (106) 160/74 (102) 160/74 Pulse Ox 97 O2 Delivery Room Air Room Air 05/29/17 05/29/17 05/29/17 11:06 11:07 11:12 Temp 98.2 98.2 Pulse 68 81 Resp 16 19 B/P (MAP) 179/69 179/69 (105) Pulse Ox 97 96 O2 Delivery Room Air Room Air OLAYINKA STAFFORD MD May 29, 2017 12:08
--- NOTE | 2017-05-29 12:48 | PDOC ---
PULMONARY PROGRESS NOTES Subjective no soa Vitals Vital Signs Date Time Temp Pulse Resp B/P (MAP) Pulse Ox O2 Delivery O2 Flow Rate FiO2 05/29/17 12:07 16 96 Room Air 05/29/17 11:12 98.2 81 179/69 (105) 98.2 General: Alert, No acute distress Lungs: Clear Cardiovascular: S1 Abdomen: Soft Neuro Exam: Alert Extremities: Other (right BKA, left wounds) Skin: Warm Labs Laboratory Tests Test 05/27/17 17:04 05/27/17 21:40 05/28/17 03:35 05/28/17 11:44 Glucose (Fingerstick) 116 mg/dL (70-99) 157 mg/dL (70-99) 121 mg/dL (70-99) White Blood Count 14.2 x10^3/uL (4.0-11.0) Red Blood Count 3.03 x10^6/uL (4.30-5.70) Hemoglobin 8.3 g/dL (13.0-17.5) Hematocrit 26.1 % (39.0-53.0) Mean Corpuscular Volume 86 fL (79-100) Mean Corpuscular Hemoglobin 28 pg (25-35) Mean Corpuscular Hemoglobin Concent 32 g/dL (31-37) Red Cell Distribution Width 19.3 % (11.5-14.5) Platelet Count 180 x10^3/uL (140-400) Neutrophils (%) (Auto) 90 % (31-73) Lymphocytes (%) (Auto) 5 % (24-48) Monocytes (%) (Auto) 3 % (0-9) Eosinophils (%) (Auto) 2 % (0-3) Basophils (%) (Auto) 1 % (0-3) Neutrophils # (Auto) 12.8 x10^3uL (1.8-7.7) Lymphocytes # (Auto) 0.6 x10^3/uL (1.0-4.8) Monocytes # (Auto) 0.4 x10^3/uL (0.0-1.1) Eosinophils # (Auto) 0.3 x10^3/uL (0.0-0.7) Basophils # (Auto) 0.1 x10^3/uL (0.0-0.2) Sodium Level 138 mmol/L (136-145) Potassium Level 3.4 mmol/L (3.5-5.1) Chloride Level 107 mmol/L (98-107) Carbon Dioxide Level 21 mmol/L (21-32) Anion Gap 10 (6-14) Blood Urea Nitrogen 19 mg/dL (8-26) Creatinine 1.4 mg/dL (0.7-1.3) Estimated GFR (Cockcroft-Gault) 50.1 Glucose Level 114 mg/dL (70-99) Calcium Level 7.7 mg/dL (8.5-10.1) Test 05/29/17 05:30 05/29/17 08:02 05/29/17 11:32 White Blood Count 10.2 x10^3/uL (4.0-11.0) Red Blood Count 3.16 x10^6/uL (4.30-5.70) Hemoglobin 8.6 g/dL (13.0-17.5) Hematocrit 27.2 % (39.0-53.0) Mean Corpuscular Volume 86 fL (79-100) Mean Corpuscular Hemoglobin 27 pg (25-35) Mean Corpuscular Hemoglobin Concent 32 g/dL (31-37) Red Cell Distribution Width 19.2 % (11.5-14.5) Platelet Count 198 x10^3/uL (140-400) Neutrophils (%) (Auto) 86 % (31-73) Lymphocytes (%) (Auto) 7 % (24-48) Monocytes (%) (Auto) 4 % (0-9) Eosinophils (%) (Auto) 2 % (0-3) Basophils (%) (Auto) 1 % (0-3) Neutrophils # (Auto) 8.8 x10^3uL (1.8-7.7) Lymphocytes # (Auto) 0.7 x10^3/uL (1.0-4.8) Monocytes # (Auto) 0.4 x10^3/uL (0.0-1.1) Eosinophils # (Auto) 0.2 x10^3/uL (0.0-0.7) Basophils # (Auto) 0.1 x10^3/uL (0.0-0.2) Prothrombin Time 24.5 SEC (11.7-14.0) Prothromb Time International Ratio 2.4 (0.8-1.1) Sodium Level 140 mmol/L (136-145) Potassium Level 3.5 mmol/L (3.5-5.1) Chloride Level 108 mmol/L (98-107) Carbon Dioxide Level 20 mmol/L (21-32) Anion Gap 12 (6-14) Blood Urea Nitrogen 13 mg/dL (8-26) Creatinine 1.1 mg/dL (0.7-1.3) Estimated GFR (Cockcroft-Gault) 66.2 Glucose Level 99 mg/dL (70-99) Calcium Level 8.5 mg/dL (8.5-10.1) Magnesium Level 1.2 mg/dL (1.8-2.4) Glucose (Fingerstick) 92 mg/dL (70-99) 181 mg/dL (70-99) Laboratory Tests Test 05/29/17 05:30 05/29/17 08:02 05/29/17 11:32 White Blood Count 10.2 x10^3/uL (4.0-11.0) Red Blood Count 3.16 x10^6/uL (4.30-5.70) Hemoglobin 8.6 g/dL (13.0-17.5) Hematocrit 27.2 % (39.0-53.0) Mean Corpuscular Volume 86 fL (79-100) Mean Corpuscular Hemoglobin 27 pg (25-35) Mean Corpuscular Hemoglobin Concent 32 g/dL (31-37) Red Cell Distribution Width 19.2 % (11.5-14.5) Platelet Count 198 x10^3/uL (140-400) Neutrophils (%) (Auto) 86 % (31-73) Lymphocytes (%) (Auto) 7 % (24-48) Monocytes (%) (Auto) 4 % (0-9) Eosinophils (%) (Auto) 2 % (0-3) Basophils (%) (Auto) 1 % (0-3) Neutrophils # (Auto) 8.8 x10^3uL (1.8-7.7) Lymphocytes # (Auto) 0.7 x10^3/uL (1.0-4.8) Monocytes # (Auto) 0.4 x10^3/uL (0.0-1.1) Eosinophils # (Auto) 0.2 x10^3/uL (0.0-0.7) Basophils # (Auto) 0.1 x10^3/uL (0.0-0.2) Prothrombin Time 24.5 SEC (11.7-14.0) Prothromb Time International Ratio 2.4 (0.8-1.1) Sodium Level 140 mmol/L (136-145) Potassium Level 3.5 mmol/L (3.5-5.1) Chloride Level 108 mmol/L (98-107) Carbon Dioxide Level 20 mmol/L (21-32) Anion Gap 12 (6-14) Blood Urea Nitrogen 13 mg/dL (8-26) Creatinine 1.1 mg/dL (0.7-1.3) Estimated GFR (Cockcroft-Gault) 66.2 Glucose Level 99 mg/dL (70-99) Calcium Level 8.5 mg/dL (8.5-10.1) Magnesium Level 1.2 mg/dL (1.8-2.4) Glucose (Fingerstick) 92 mg/dL (70-99) 181 mg/dL (70-99) Medications Active Scripts Medications Dose Route/Sig Max Daily Dose Days Date Category Lisinopril 10 Mg Tablet 1 Tab PO DAILY 05/26/17 Reported [coumadin] 05/26/17 Reported Allopurinol 300 Mg Tablet 1 Tab PO DAILY 05/26/17 Reported Impression . 1. Dyspnea, suspect secondary to infection. RESOLVED. His chest x-ray is clear. VQ scan, no evidence of pulmonary embolism. Doubt the dyspnea is related to pulmonary pathology. 2. Leukocytosis per Infectious Disease service.improving 3. Left lower extremity wound. 4. PENICILLIN ALLERGY. 5. Chronic kidney disease. 6. Loose stools, r/o C-Diff Plan . Pulmonary status is compensated. Continue current empiric antibiotics per ID. No further pulmonary workup required. monitor wbc count PT KRYSTAL KOVACS MD May 29, 2017 12:48
[2017-05-29] MEDS ORDERED: OXYC1TAB7 PO (14:07)
[2017-05-29 14:44] VITALS: BP 142/76
[2017-05-29] MEDS ORDERED: WARFARIN 2 MG TABLET. PO ONE (16:00)
--- NOTE | 2017-06-01 15:29 | DS ---
DATE OF DISCHARGE: 05/29/2017 CHIEF COMPLAINT: Fatigue. HOSPITAL COURSE: The patient is a 71-year-old gentleman who presented to the Emergency Room with diffuse symptoms of fatigue, shortness of breath and weakness. In the Emergency Room, he was found with leukocytosis suspicious for infection, acute renal failure and therefore admitted to the hospital. Consults from Infectious Disease, Nephrology as well as Pulmonology were obtained. 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 The latter was also addressed by Wound Care team. With improvement of his symptoms, he was deemed appropriate for transfer to rehab for further management. PHYSICAL EXAM: VITAL SIGNS: BP 160/74 HR 68 RR 20 GENERAL: NAD, Alert NECK: Supple, no JVD, no LN LUNGS: Clear HEART: S1S2, no murmur ABD: SNT, obese EXT: No edema. 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 DISCHARGE DISPOSITION: To care home facility. DISCHARGE CONDITION: Improved. DISCHARGE MEDICATIONS: Please refer to MAR. DISCHARGE INSTRUCTIONS: The patient will follow up with his PCP after returning home from rehab. Greater than 30 minutes were spent in arranging discharge. IMRTA CACERES MD DR: NAOMIE/nts JOB#: [id number] / [id number] MABLE
== END 2017-05-29 17:32 | DRG 862 ==
LOC: ER 16:56 → 6 SOUTH 20:29
PROVIDERS: ADMIT Internal Medicine; ATTEND Internal Medicine
DX: T81.4XXA Infection following a procedure, initial encounter (principal); N17.0 Acute kidney failure with tubular necrosis; E43 Unspecified severe protein-calorie malnutrition; N18.4 Chronic kidney disease, stage 4 (severe); R65.10 Systemic inflammatory response syndrome (SIRS) of non-infectious origin without acute organ dysfunction; E11.22 Type 2 diabetes mellitus with diabetic chronic kidney disease; E11.40 Type 2 diabetes mellitus with diabetic neuropathy, unspecified; I95.9 Hypotension, unspecified; I48.0 Paroxysmal atrial fibrillation; E66.01 Morbid (severe) obesity due to excess calories; D64.9 Anemia, unspecified; E61.1 Iron deficiency; Z68.31 Body mass index [BMI] 31.0-31.9, adult; G47.33 Obstructive sleep apnea (adult) (pediatric); I12.9 Hypertensive chronic kidney disease with stage 1 through stage 4 chronic kidney disease, or unspecified chronic kidney disease; M10.9 Gout, unspecified; S81.802A Unspecified open wound, left lower leg, initial encounter; T45.515A Adverse effect of anticoagulants, initial encounter; Y92.89 Other specified places as the place of occurrence of the external cause; Z82.49 Family history of ischemic heart disease and other diseases of the circulatory system; Z83.3 Family history of diabetes mellitus; Z87.891 Personal history of nicotine dependence; Z88.0 Allergy status to penicillin; Z89.511 Acquired absence of right leg below knee; Z91.19 Patient's noncompliance with other medical treatment and regimen; Z96.659 Presence of unspecified artificial knee joint; K59.00 Constipation, unspecified; Z88.5 Allergy status to narcotic agent; J06.9 Acute upper respiratory infection, unspecified
CPT/HCPCS: 36415; 70450; 71010; 78582; 80048; 80053; 81001; 82607; 82728; 82746; 82962; 83540; 83550; 83735; 83880; 84145; 84484; 85007; 85025; 85045; 85379; 85610; 85730; 87040; 87641; 93005; 94250; 94640; 94760; 96365; 96374; A9540; A9558; J0360; J0456; J0690; J1756; J2020; J2270; J2543; J3420; J7050; J7620; 97110; 97530; 97535; 99285-25; J7030